=== PATIENT | female | born 1975 | race Caucasian/White ===

== ENCOUNTER → 2017-11-20 13:34 | Outpatient (REF) | payer BC, SELFPAY ==
[2017-11-20 17:42] LABS: Basophils # 0.1 K/mm3 (0-0.2); Basophils % 0.6 % (0.1-2.0); Eosinophils # 0.3 K/mm3 (0.0-0.4); Eosinophils % 2.6 % (0.1-12.0); Hematocrit 45.7 % (37.0-47.0); Hemoglobin 14.8 g/dL (12.2-16.2); Lymphocytes # 2.9 K/mm3 (0.7-4.5); Lymphocytes % 29.3 K/mm3 (10-50); Mean Corpuscular HGB Conc 32.4 g/dL (31.8-35.4); Mean Corpuscular Hemoglobin 30.9 pg (27.0-31.2); Mean Corpuscular Volume 95.3 fl (81-99); Mean Platelet Volume 9.2 fl (7.4-10.4); Monocytes # 0.4 K/mm3 (0.1-1.0); Monocytes % 4.3 % (1.7-9.3); Neutrophils # 6.2 K/mm3 (1.8-7.8); Neutrophils % 63.1 % (37.0-80.0); Platelet Count 281 K/mm3 (142-424); Red Cell Distribution Width 12.9 % (11.5-17.5); White Blood Count 9.8 K/mm3 (4.8-10.8)
[2017-11-20 18:13] LABS: Alanine Aminotransferase 29 U/L (12-78); Albumin Level 3.7 gm/dL (3.4-5.0); Albumin/Globulin Ratio 1.1 (1.1-1.8); Alkaline Phosphatase 100 U/L (46-116); Anion Gap 13.7 mEq/L (5-15); Aspartate Amino Transferase 16 U/L (15-37); Bilirubin,Total 0.3 mg/dL (0.2-1.0); Blood Urea Nitrogen 13 mg/dL (7-18); Calcium 8.8 mg/dL (8.5-10.1); Carbon Dioxide 26 mmol/L (21.0-32.0); Chloride 105 mmol/L (98-107); Estimated Glomerular Filt Rate 79 ml/min (>60); Free T4 (Free Thyroxine) 1.08 ng/dl (0.76-1.46); GFR (African American) 95 ML/MIN (>60); Globulin 3.5 gm/dl (1.3-3.2); Glucose 92 mg/dL (74-106); Potassium 4.7 mmoL/L (3.5-5.1); Sodium 140 mmol/L (136-145); Thyroid Stimulating Hormone 1.59 uIU/ml (0.358-3.740); Total Protein,Serum 7.2 gm/dL (6.4-8.2)
[2017-11-22 08:11] LABS: Iron 115 ug/dL (27-159); UIBC 201 ug/dL (131-425)
[2017-11-22 18:29] LABS: Iron Saturation 36 % (15-55); Vitamin B12 752 pg/mL (232-1245)
[2017-11-23 18:09] LABS: Vitamin D 25 Hydroxy 19.9 ng/mL (30.0-100.0)
== END ==
LOC: LAB 13:34
PROVIDERS: Visit Provider Nurse Practitioner Family
DX: R53.83 Other fatigue (principal)
CPT/HCPCS: 80053; 82607; 82652; 83550; 84439; 84443; 85025

== ENCOUNTER → 2017-12-03 10:57 | Outpatient (CLI) | payer BC, SELFPAY ==
--- NOTE | 2017-12-03 | US_ITS ---
MM Dig mamm BI DX w/CAD, US breast LT limited COMPARISON: None INDICATION: Palpable abnormality in the left nipple area ORDERING PHYSICIAN: Gucci Yeager MD PATIENT AGE: 42 years TECHNIQUE: Standard images performed along with a nipple profile view of the left cc with compression Left breast ultrasound Limited FINDINGS: There is mostly fatty replaced fibroglandular tissue. No malignant appearing mass or malignant microcalcification. A marker was placed along the palpable abnormality. There is a 4 mm subcutaneous nodule along the lateral aspect of the left nipple. The drainage from the area were tissue. Left breast limited ultrasound: Palpable abnormality represents a 4 x 4 mm area of decreased echogenicity with some enhanced through transmission of sound IMPRESSION: Probably benign findings. A raised pimple like area is noted on the left nipple as seen on the mammogram and ultrasound and could represent an area of cutaneous or subcutaneous infection. Please correlate with physical exam. BI-RADS Category: 3 Benign Finding Short Term Follow-up RECOMMENDED FOLLOW-UP: IMM - IMMEDIATE FOLLOW-UP RECOMMENDED Correlation with physical exam needed regarding today's lesion of the left nipple. (A letter has been sent to the patient regarding results of the study.)
== END ==
PROVIDERS: PCP Nurse Practitioner Family; Visit Provider Emergency Medicine
DX: Z12.31 Encounter for screening mammogram for malignant neoplasm of breast (principal)
CPT/HCPCS: 76642; 77066

== ENCOUNTER → 2018-01-19 13:00 | Outpatient (CLI) | payer BC, SELFPAY ==
--- NOTE | 2018-01-19 13:01 | CA_ITS ---
PROCEDURE: 2-D M-mode and color Doppler study INDICATIONS FOR THE TEST: Chest pain COPD Heart Murmur Tobacco Smoking+ Palpitations Fatigue Syncope Edema Hypertension+Diabetes Mellitus Rheumatic Fever SOB+LI+Obesity+Hyperlipidemia Family History HD+ Additional History Asthma PATIENT INFORMATION HEIGHT: 61 WEIGHT: 229 GENDER: Female B/P: 133/71 2-D/M-MODE INTERPRETATION: 2-D MEASUREMENTS OBSERVED VALUES IN CMS Right Ventricular Dimension (RVDd) 2.0 Interventricular Septum (Thickness)(IVsd) 0.8 Left Ventricular Internal Dimensions(LVIDd) 4.5 Left Ventricular Posterior Wall (Thickness)(LVPWd) 0.9 Aortic Root 2.4 Aortic Cusp Separation 2.0 Left Atrial Dimensions (LAD) 3.3 2D 1. Left atrium is normal size, left ventricle is normal size, there is no concentric left ventricular hypertrophy, visually estimated ejection fraction 55% with no obvious regional wall motion abnormality. 2. The right atrium and right ventricle are normal size and contractility. 3. The aortic valve is minimally thickened and fibrosed. 4. The mitral and tricuspid valve leaflets are minimally thickened. 5. The pulmonic valve is poorly visualized. 6. No significant pericardial effusion noted. DOPPLER INTERROGATION: Doppler interrogation of the aortic, mitral and tricuspid valvular presence of mild mitral and tricuspid regurgitation, tricuspid and jet velocity is insufficient for acquisition of the right ventricular systolic pressure, diastolic parameters are within normal range. CONCLUSION: 1. Normal left ventricular size, preserved left ventricular systolic function, visually estimated ejection fraction 60% with no obvious regional wall motion abnormality. Diastolic parameters are within normal range. 2. Mild mitral and tricuspid regurgitation 3. No significant pericardial effusion noted.
[2018-01-19 14:09] LABS: Basophils # 0.1 K/mm3 (0-0.2); Basophils % 0.6 % (0.1-2.0); Eosinophils # 0.4 K/mm3 (0.0-0.4); Eosinophils % 2.9 % (0.1-12.0); Hematocrit 44.1 % (37.0-47.0); Hemoglobin 14.8 g/dL (12.2-16.2); Lymphocytes # 2.6 K/mm3 (0.7-4.5); Lymphocytes % 21.2 K/mm3 (10-50); Mean Corpuscular HGB Conc 33.6 g/dL (31.8-35.4); Mean Corpuscular Hemoglobin 31.4 pg (27.0-31.2); Mean Corpuscular Volume 93.5 fl (81-99); Mean Platelet Volume 8.5 fl (7.4-10.4); Monocytes # 0.5 K/mm3 (0.1-1.0); Monocytes % 3.9 % (1.7-9.3); Neutrophils # 8.6 K/mm3 (1.8-7.8); Neutrophils % 71.4 % (37.0-80.0); Platelet Count 277 K/mm3 (142-424); Red Blood Count 4.72 M/mm3 (4.20-5.40); Red Cell Distribution Width 12.9 % (11.5-17.5); White Blood Count 12.1 K/mm3 (4.8-10.8)
[2018-01-19 14:47] LABS: Anion Gap 13.5 mEq/L (5-15); Blood Urea Nitrogen 14 mg/dL (7-18); Carbon Dioxide 24 mmol/L (21.0-32.0); Chloride 104 mmol/L (98-107); Estimated Glomerular Filt Rate 79 ml/min (>60); GFR (African American) 95 ML/MIN (>60); Glucose 103 mg/dL (74-106); Potassium 4.5 mmoL/L (3.5-5.1); Sodium 137 mmol/L (136-145)
== END ==
PROVIDERS: Surgery; PCP Nurse Practitioner Family; Visit Provider Internal Medicine
DX: I51.9 Heart disease, unspecified (principal); R94.31 Abnormal electrocardiogram [ECG] [EKG]; R06.09 Other forms of dyspnea
CPT/HCPCS: 36415; 80048; 80053; 84153; 85025; 93306

== ENCOUNTER → 2018-01-19 13:51 | Outpatient (POV) | payer BC, SELFPAY | PROVIDERS: PCP Nurse Practitioner Family; Visit Provider Internal Medicine | DX: Z00.00 Encounter for general adult medical examination without abnormal findings (principal) ==

== ENCOUNTER 2018-01-22 07:13 | Day surgery (SDC) | payer BC, SELFPAY ==
[2018-01-21 13:57] VITALS: BMI 92.4
[2018-01-22] VITALS (17 sets, daily range): BP systolic 92–144; BP diastolic 51–84; PULSE 68–97; RESP 12–25; TEMP 36.1–36.8; O2SAT 96–100
--- NOTE | 2018-01-22 07:53 | P.PN_ITS ---
[facility] Anesthesia Checklist - Patient Identification Patient Identification: Arm Band - Structural Data Admitted From: Home Planned Operative Procedure/s: excision left breast lesion Consent for Planned Operative Procedure(s) Verified: Yes Verified Documents: Surgical Consent, History and Physical - NPO Status Verified Time NPO: 00:00 - Additional verifications Anesthesia Reactions: No - Airway Assessment C-Spine Mobility Assessed: Yes (mp2) TMJ Mobility Assessed: Yes Dentition: Good Dentition - Neurological Assessment Level of Consciousness: Awake, Alert - Anesthesia Plan Anesthesia Risk discussed: Yes Anesthesia Plan: Verified ASA Class: II Anesthesia Type: General [facility] Anesthesia HX I have reviewed the patient's past medical history: Yes Medical History: Reports:: Asthma, Cancer (bladder), Gastroesophageal Reflux Disease(GERD), Hypertension, Migraine Denies:: Diabetes Mellitus Type 1, Diabetes Mellitus Type 2, MRSA, Seizures Other Medical History: Reports: Arthritis, Hypothyroidism, Thyroid Disease, Other. Denies: Blood Transfusion Reaction Laterality Cases: Left: Arthroscopy Knee Other Surgeries: Yes: Hysterectomy-Partial, Tubal Ligation, Other (multiple bladder sx's) Amputation: No Fractures: No *Family Hx:: Coronary Artery Disease, Hypertension, Stroke
--- NOTE | 2018-01-22 08:42 | HMH.OPNOTE ---
Date of procedure: 01/22/18 Pre-op Diagnosis:: Left breast lesion Post-op Diagnosis:: Same Procedure performed:: Excision of left breast lesion (5 mm) Surgeon:: Lopez Anne MD HIDE HOUSE SUPERVISOR:: Wilbert Carter Anesthesia: LMA Estimated blood loss (mL): 5 Operative findings:: Small cystic lesion along skin margin of left lateral nipple Operative note:: After informed consent was obtained, the patient was taken to the operating room and placed in the supine position. Anesthesia with laryngeal mask airway was achieved. Her left breast was prepped and draped in a sterile fashion. After infiltration with local anesthetic an elliptical incision was made around the small cystic lesion. Lesion was excised sharply and passed off for pathologic evaluation. Electrocautery was utilized to achieve hemostasis. Skin was then closed with interrupted 6-0 nylon. Dressings were applied and the patient was transferred to recovery in stable condition after removal of her laryngeal mask airway. Condition: stable Disposition: PACU Specimens:: Left breast lesion Complications:: No immediate
--- NOTE | 2018-01-22 08:45 | P.OP_ITS ---
Date of procedure: 01/22/18 Pre-op Diagnosis:: Left breast lesion Post-op Diagnosis:: Same Procedure performed:: Excision of left breast lesion (5 mm) Surgeon:: Lopez Anne MD TRANSIT PLANNING MANAGER:: Wilbert Carter Anesthesia: LMA Estimated blood loss (mL): 5 Operative findings:: Small cystic lesion along skin margin of left lateral nipple Operative note:: After informed consent was obtained, the patient was taken to the operating room and placed in the supine position. Anesthesia with laryngeal mask airway was achieved. Her left breast was prepped and draped in a sterile fashion. After infiltration with local anesthetic an elliptical incision was made around the small cystic lesion. Lesion was excised sharply and passed off for pathologic evaluation. Electrocautery was utilized to achieve hemostasis. Skin was then closed with interrupted 6-0 nylon. Dressings were applied and the patient was transferred to recovery in stable condition after removal of her laryngeal mask airway. Condition: stable Disposition: PACU Specimens:: Left breast lesion Complications:: No immediate
--- NOTE | 2018-01-22 08:50 | P.PN_ITS ---
[facility] Anesthesia Record Part II Discharge Time: 09:15 Destination: [facility] PACU nurse assessment reviewed?: Yes Patient Condition:: Good Anesthesia Complications:: None
--- NOTE | 2018-01-22 08:50 | HMH.ANESI ---
[facility] Anesthesia Record Part I Intake, IV Amount: 800 Estimated blood loss (mL): 5 Urine output (mL): 0 Blood Pressure: 120/73 SaO2: 97 Pulse Rate: 72 Respiratory Rate: 16 Temperature: 97 F Patient is:: Drowsy, Stable Stable to PACU at:: 08:45
--- NOTE | 2018-01-22 08:50 | HMH.ANESII ---
[facility] Anesthesia Record Part II Discharge Time: 09:15 Destination: [facility] PACU nurse assessment reviewed?: Yes Patient Condition:: Good Anesthesia Complications:: None
== END 2018-01-22 10:30 | disposition home or self-care (01) ==
LOC: OR 07:14
PROVIDERS: PCP Nurse Practitioner Family; Visit Provider Surgery
PROC: (CPT 19120; principal; 2018-01-22 08:15)
DX: N64.89 Other specified disorders of breast (principal)
CPT/HCPCS: 19120; 96374; J2405

== ENCOUNTER → 2018-02-04 14:35 | Outpatient (CLI) | payer BC, SELFPAY | PROVIDERS: Visit Provider Nurse Practitioner Family ==

== ENCOUNTER → 2018-02-12 09:22 | Outpatient (REF) | payer BC, SELFPAY ==
[2018-02-12 14:07] LABS: Basophils # 0.1 K/mm3 (0-0.2); Basophils % 0.6 % (0.1-2.0); Eosinophils # 0.3 K/mm3 (0.0-0.4); Eosinophils % 3.3 % (0.1-12.0); Hematocrit 41.5 % (37.0-47.0); Hemoglobin 13.7 g/dL (12.2-16.2); Lymphocytes # 2.4 K/mm3 (0.7-4.5); Lymphocytes % 26.2 K/mm3 (10-50); Mean Corpuscular HGB Conc 32.9 g/dL (31.8-35.4); Mean Corpuscular Hemoglobin 31.5 pg (27.0-31.2); Mean Corpuscular Volume 95.8 fl (81-99); Mean Platelet Volume 9.7 fl (7.4-10.4); Monocytes # 0.4 K/mm3 (0.1-1.0); Monocytes % 4.4 % (1.7-9.3); Neutrophils % 65.5 % (37.0-80.0); Platelet Count 217 K/mm3 (142-424); Red Blood Count 4.33 M/mm3 (4.20-5.40); White Blood Count 9.1 K/mm3 (4.8-10.8)
== END ==
LOC: LAB 09:22
PROVIDERS: Visit Provider Physician Assistant
DX: D72.829 Elevated white blood cell count, unspecified (principal)
CPT/HCPCS: 85025

== ENCOUNTER → 2018-02-25 12:15 | Outpatient (CLI) | payer BC, SELFPAY ==
[2018-02-25 14:02] LABS: Anion Gap 17.9 mEq/L (5-15); Blood Urea Nitrogen 13 mg/dL (7-18); Carbon Dioxide 22 mmol/L (21.0-32.0); Chloride 103 mmol/L (98-107); Creatinine,Serum 0.83 mg/dL (0.55-1.02); Estimated Glomerular Filt Rate 75 ml/min (>60); Free Thyroxine Index 3.4 ug/dL (5.93-13.13); GFR (African American) 91 ML/MIN (>60); Glucose 143 mg/dL (74-106); Potassium 3.9 mmoL/L (3.5-5.1); Sodium 139 mmol/L (136-145); T4 (Thyroxine) 9.6 ug/dl (4.7-13.3); Thyroid Stimulating Hormone 1.58 uIU/ml (0.358-3.740); Triiodothryronine (T3) Uptake 35 % (31-39)
[2018-02-25 15:24] LABS: Free T4 (Free Thyroxine) 1.16 ng/dl (0.76-1.46)
== END ==
PROVIDERS: Physician Assistant; Visit Provider Internal Medicine Cardiovascular Disease
DX: N39.0 Urinary tract infection, site not specified (principal); R53.83 Other fatigue; I10 Essential (primary) hypertension; E03.9 Hypothyroidism, unspecified
CPT/HCPCS: 36415; 80048; 84436; 84439; 84443; 84479; 87086

== ENCOUNTER → 2018-04-01 10:20 | Outpatient (REF) | payer BC, SELFPAY | LOC: LAB 10:20 | PROVIDERS: Visit Provider Nurse Practitioner Family | DX: N39.0 Urinary tract infection, site not specified (principal) | CPT/HCPCS: 87086 ==

== ENCOUNTER → 2018-04-12 14:23 | Outpatient (CLI) | payer BC, SELFPAY ==
--- NOTE | 2018-04-12 14:24 | US_ITS ---
US transvaginal HISTORY: Right lower quadrant pain, pelvic pain ITS.REASON: Possible Right Ovarian Cyst ORDERING PHYSICIAN: Veronica Ibrahim MD PATIENT AGE: 42 years Comparison: 07/13/2017 FINDINGS: There has been a prior hysterectomy and left oophorectomy. The vaginal stump has an unremarkable appearance. The right ovary measures 3.7 x 2.7 cm and contains 2 heterogeneous cysts each measuring approximately 1 cm and may be due to small hemorrhagic cyst. There is a trace amount fluid adjacent to left ovary. IMPRESSION: 1. Prior hysterectomy and left oophorectomy 2. 2 small complex cyst in the right ovary which may be due to small hemorrhagic cysts. These have developed compared to the previous exam. Minimal amount fluid in the cul-de-sac
== END ==
PROVIDERS: PCP Nurse Practitioner Family; Visit Provider Obstetrics & Gynecology
DX: N83.201 Unspecified ovarian cyst, right side (principal)
CPT/HCPCS: 76830

== ENCOUNTER → 2018-04-22 15:02 | Outpatient (CLI) | payer BC, SELFPAY ==
--- NOTE | 2018-04-22 15:03 | XR_ITS ---
XR foot LT min 3V HISTORY: Posttraumatic pain ITS.REASON: Fell 04/22/18 ORDERING PHYSICIAN: ABBE Lujan PATIENT AGE: 42 years COMPARISON: None FINDINGS: No fracture or dislocation. No lytic or blastic change. There is normal mineralization.. The joint spaces are well-preserved. No significant degenerative/arthritic changes. No erosive changes evident. IMPRESSION: Negative, no acute finding
== END ==
PROVIDERS: Visit Provider Physician Assistant
DX: S99.912A Unspecified injury of left ankle, initial encounter (principal); S99.922A Unspecified injury of left foot, initial encounter
CPT/HCPCS: 73630

== ENCOUNTER → 2018-05-11 10:37 | Outpatient (CLI) | payer BC, SELFPAY ==
[2018-05-11 10:54] LABS: Basophils # 0.1 K/mm3 (0-0.2); Basophils % 0.6 % (0.1-2.0); Eosinophils # 0.5 K/mm3 (0.0-0.4); Eosinophils % 4.9 % (0.1-12.0); Hematocrit 45.5 % (37.0-47.0); Hemoglobin 14.7 g/dL (12.2-16.2); Lymphocytes # 2.2 K/mm3 (0.7-4.5); Lymphocytes % 20.4 K/mm3 (10-50); Mean Corpuscular HGB Conc 32.2 g/dL (31.8-35.4); Mean Corpuscular Hemoglobin 29.4 pg (27.0-31.2); Mean Corpuscular Volume 91.4 fl (81-99); Mean Platelet Volume 8.3 fl (7.4-10.4); Monocytes # 0.4 K/mm3 (0.1-1.0); Monocytes % 3.7 % (1.7-9.3); Neutrophils # 7.5 K/mm3 (1.8-7.8); Neutrophils % 70.4 % (37.0-80.0); Platelet Count 239 K/mm3 (142-424); Red Blood Count 4.98 M/mm3 (4.20-5.40); Red Cell Distribution Width 13.2 % (11.5-17.5); White Blood Count 10.6 K/mm3 (4.8-10.8)
[2018-05-11 12:58] LABS: Anion Gap 14.3 mEq/L (5-15); Blood Urea Nitrogen 15 mg/dL (7-18); Calcium 8.7 mg/dL (8.5-10.1); Carbon Dioxide 23 mmol/L (21.0-32.0); Chloride 106 mmol/L (98-107); Estimated Glomerular Filt Rate 68 ml/min (>60); GFR (African American) 83 ML/MIN (>60); Glucose 98 mg/dL (74-106); Potassium 4.3 mmoL/L (3.5-5.1); Sodium 139 mmol/L (136-145)
== END ==
PROVIDERS: Visit Provider Nurse Practitioner Obstetrics & Gynecology
DX: Z01.818 Encounter for other preprocedural examination (principal); R10.31 Right lower quadrant pain
CPT/HCPCS: 36415; 80048; 85025

== ENCOUNTER → 2018-07-27 12:55 | Outpatient (POV) | payer BC, SELFPAY | PROVIDERS: PCP Nurse Practitioner Family; Visit Provider Internal Medicine | DX: Z00.00 Encounter for general adult medical examination without abnormal findings (principal) ==

== ENCOUNTER → 2018-08-02 09:55 | Outpatient (CLI) | payer BC, SELFPAY ==
[2018-08-02 10:14] LABS: Basophils # 0.1 K/mm3 (0-0.2); Basophils % 0.8 % (0.1-2.0); Eosinophils # 0.2 K/mm3 (0.0-0.4); Eosinophils % 2.8 % (0.1-12.0); Hematocrit 39.8 % (37.0-47.0); Lymphocytes % 24.1 K/mm3 (10-50); Mean Corpuscular HGB Conc 32.6 g/dL (31.8-35.4); Mean Corpuscular Hemoglobin 30.6 pg (27.0-31.2); Mean Corpuscular Volume 93.9 fl (81-99); Mean Platelet Volume 8.6 fl (7.4-10.4); Monocytes # 0.3 K/mm3 (0.1-1.0); Monocytes % 3.9 % (1.7-9.3); Neutrophils # 5.6 K/mm3 (1.8-7.8); Neutrophils % 68.4 % (37.0-80.0); Platelet Count 222 K/mm3 (142-424); Red Blood Count 4.24 M/mm3 (4.20-5.40); Red Cell Distribution Width 13.2 % (11.5-17.5); White Blood Count 8.1 K/mm3 (4.8-10.8)
== END ==
PROVIDERS: PCP Emergency Medicine; Visit Provider Otolaryngology
DX: Z01.818 Encounter for other preprocedural examination (principal)
CPT/HCPCS: 36415; 85025

== ENCOUNTER → 2018-08-11 09:34 | Outpatient (CLI) | payer BC, SELFPAY ==
--- NOTE | 2018-08-11 09:38 | XR_ITS ---
XR knee LT 4V Ordering Physician: Milton Cohen MD Patient Age: 43 years: Female HISTORY: ITS.REASON: left knee pain 4 views weightbearing Knee pain medial, anterior. Progressive past 6 months. TECHNIQUE: Technique: Weightbearing AP, lateral and Matt views were performed as well as oblique. COMPARISON :None FINDINGS Prominent degenerative arthritic, most evident at patellofemoral joint, most evident laterally. Hypertrophic lateral extension of the lateral margin of patella seen draping over the lateral aspect of its femoral articulation. Prominent circumferential hypertrophic changes both sides of patellofemoral joint. Joint narrowing & sclerosis is most evident along the posterior aspect of lateral patella. On the frontal projection is difficult to tell there is been old fracture or if merely viewing some of the thin lateral marginal osteophytes extending laterally account for appearance on final projection.. Also hypertrophic changes seen at the medial margin of patella & the medial facet.] Medial femoral articulation. Osseous structures with trauma here. No prior studies The medial and lateral compartments are fairly well maintained on the standing views. There is some calcification project over the particular the lateral compartment more so than medial compartment. On this likely reflects accommodation chondrocalcinosis as well as some of the hypertrophic changes project over this region. Cannot exclude loose bodies with this appearance particularly on the standing Matt view. . tricompartmental marginal osteophytes.. . Hypertrophic changes are also seenAt the tibial spines. & to lesser degree femoral condyles. Again difficult to exclude loose body or fragmentation at anterior tibial spine.. Small joint effusion likely present IMPRESSION: 1. Degenerative, osteoarthritic changes at the knee.. Most pronounced findings at the lateral patellofemoral joint Tricompartmental marginal osteophytes. Scattered calcifications projected throughout knee joint space particularly evident at lateral compartment..- Some these may reflect chondrocalcinosis, but I suspect are also hypertrophic features (4 example at anterior tibial spine)-but cannot exclude underlying joint loose body with overall appearance.
== END ==
PROVIDERS: PCP Emergency Medicine; Visit Provider Orthopaedic Surgery
DX: M25.562 Pain in left knee (principal)
CPT/HCPCS: 73564

== ENCOUNTER → 2018-08-13 09:41 | Outpatient (REF) | payer BC, SELFPAY ==
[2018-08-13 14:29] LABS: Alanine Aminotransferase 20 U/L (12-78); Albumin Level 3.5 gm/dL (3.4-5.0); Alkaline Phosphatase 80 U/L (46-116); Anion Gap 16.3 mEq/L (5-15); Aspartate Amino Transferase 10 U/L (15-37); Bilirubin,Total 0.3 mg/dL (0.2-1.0); Blood Urea Nitrogen 16 mg/dL (7-18); Calcium 9.1 mg/dL (8.5-10.1); Carbon Dioxide 23 mmol/L (21.0-32.0); Chloride 105 mmol/L (98-107); Chol/HDL Ratio 3.2 (1-3.5); Cholesterol 189 mg/dL (140-200); Creatinine,Serum 0.79 mg/dL (0.55-1.02); Estimated Glomerular Filt Rate 79 ml/min (>60); GFR (African American) 96 ML/MIN (>60); Globulin 3.5 gm/dl (1.3-3.2); Glucose 107 mg/dL (74-106); HDL Cholesterol 60 mg/dL (29-89); LDL Cholesterol 112 mg/dL (0-130); Potassium 4.3 mmoL/L (3.5-5.1); Sodium 140 mmol/L (136-145); T4 (Thyroxine) 7.5 ug/dl (4.7-13.3); Triglycerides 84 mg/dL (30-200); VLDL Cholesterol 17 mg/dL (0-40)
[2018-08-13 15:00] LABS: Basophils % 0.1 % (0.1-2.0); Eosinophils % 0.1 % (0.1-12.0); Hematocrit 42.1 % (37.0-47.0); Hemoglobin 13.7 g/dL (12.2-16.2); Lymphocytes # 2.2 K/mm3 (0.7-4.5); Lymphocytes % 11.1 K/mm3 (10-50); Mean Corpuscular HGB Conc 32.6 g/dL (31.8-35.4); Mean Corpuscular Hemoglobin 30.7 pg (27.0-31.2); Mean Corpuscular Volume 94.3 fl (81-99); Monocytes # 0.7 K/mm3 (0.1-1.0); Monocytes % 3.6 % (1.7-9.3); Neutrophils # 17.3 K/mm3 (1.8-7.8); Neutrophils % 85.2 % (37.0-80.0); Platelet Count 288 K/mm3 (142-424); Red Blood Count 4.47 M/mm3 (4.20-5.40); Red Cell Distribution Width 13.6 % (11.5-17.5); White Blood Count 20.3 K/mm3 (4.8-10.8)
[2018-08-13 15:02] LABS: MANUAL DIFFERENTIAL MANUAL DIFFERENTIAL (MANUAL DIFF)
[2018-08-13 16:10] LABS: Lymphocytes % 12 % (10-50); Monocytes % 6 % (2-9); Neutrophils % 82 % (42-76); Total Cells Counted 100
[2018-08-13 16:12] LABS: Platelet Estimate Normal; RBC Morphology Normal
[2018-08-14 10:22] LABS: Vitamin D 25 Hydroxy 18.4 ng/mL (30.0-100.0)
== END ==
LOC: LAB 09:41
PROVIDERS: PCP Nurse Practitioner Family; Visit Provider Nurse Practitioner Family
DX: I10 Essential (primary) hypertension (principal)
CPT/HCPCS: 80053; 80061; 82652; 84436; 84443; 85007; 85025

== ENCOUNTER → 2018-08-23 10:59 | Outpatient (CLI) | payer BC, SELFPAY ==
[2018-08-23 12:10] LABS: Basophils # 0.1 K/mm3 (0-0.2); Basophils % 0.5 % (0.1-2.0); Eosinophils # 0.2 K/mm3 (0.0-0.4); Eosinophils % 1.8 % (0.1-12.0); Hematocrit 39.2 % (37.0-47.0); Hemoglobin 12.8 g/dL (12.2-16.2); Lymphocytes # 2.5 K/mm3 (0.7-4.5); Lymphocytes % 21.3 K/mm3 (10-50); Mean Corpuscular HGB Conc 32.6 g/dL (31.8-35.4); Mean Corpuscular Hemoglobin 30.6 pg (27.0-31.2); Mean Corpuscular Volume 93.9 fl (81-99); Mean Platelet Volume 7.7 fl (7.4-10.4); Monocytes # 0.5 K/mm3 (0.1-1.0); Monocytes % 4.1 % (1.7-9.3); Neutrophils # 8.4 K/mm3 (1.8-7.8); Neutrophils % 72.3 % (37.0-80.0); Platelet Count 213 K/mm3 (142-424); Red Blood Count 4.18 M/mm3 (4.20-5.40); Red Cell Distribution Width 13.6 % (11.5-17.5); White Blood Count 11.6 K/mm3 (4.8-10.8)
== END ==
PROVIDERS: Visit Provider Nurse Practitioner Family
DX: D72.829 Elevated white blood cell count, unspecified (principal)
CPT/HCPCS: 36415; 85025

== ENCOUNTER → 2018-09-06 12:25 | Outpatient (CLI) | payer BC, SELFPAY ==
[2018-09-06 13:38] LABS: Basophils # 0.1 K/mm3 (0-0.2); Basophils % 0.5 % (0.1-2.0); Eosinophils # 0.2 K/mm3 (0.0-0.4); Hematocrit 39.4 % (37.0-47.0); Hemoglobin 12.9 g/dL (12.2-16.2); Lymphocytes # 2.1 K/mm3 (0.7-4.5); Lymphocytes % 24.5 % (10-50); Mean Corpuscular HGB Conc 32.8 g/dL (31.8-35.4); Mean Corpuscular Hemoglobin 30.5 pg (27.0-31.2); Mean Corpuscular Volume 92.9 fl (81-99); Mean Platelet Volume 7.4 fl (7.4-10.4); Monocytes # 0.3 K/mm3 (0.1-1.0); Platelet Count 250 K/mm3 (142-424); Red Blood Count 4.25 M/mm3 (4.20-5.40); Red Cell Distribution Width 13.8 % (11.5-17.5); White Blood Count 8.6 K/mm3 (4.8-10.8)
== END ==
PROVIDERS: Visit Provider Nurse Practitioner Family
DX: D72.829 Elevated white blood cell count, unspecified (principal)
CPT/HCPCS: 36415; 85025

== ENCOUNTER → 2018-09-09 18:13 | Outpatient (CLI) | payer BC, SELFPAY | PROVIDERS: Visit Provider Nurse Practitioner Family | DX: N39.0 Urinary tract infection, site not specified (principal) | CPT/HCPCS: 87086 ==

== ENCOUNTER → 2018-09-20 17:49 | Outpatient (CLI) | payer BC, SELFPAY | PROVIDERS: Visit Provider Physician Assistant | DX: R10.9 Unspecified abdominal pain (principal); L02.91 Cutaneous abscess, unspecified | CPT/HCPCS: 87070; 87077; 87086; 87186; 87205 ==

== ENCOUNTER → 2018-09-22 14:21 | Outpatient (POV) | payer BC, SELFPAY | DX: Z00.00 Encounter for general adult medical examination without abnormal findings (principal) ==

== ENCOUNTER 2018-09-28 15:00 | Outpatient (RCR) | payer BC, SELFPAY ==
--- NOTE | 2018-08-18 15:18 | HMH.PTOPEV ---
PT Outpatient Evaluation Rehab PT Outpatient Evaluation Start: 08/18/18 14:46 Freq: Status: Active Protocol: Document 08/18/18 15:09 PHOBAN (Rec: 08/18/18 15:18 PHORNE [id number]) Electronically Signed By Clovis Whitt, PT 08/18/18 15:09 Outpatient Therapy Subjective History Subjective History Pt is 43 yowf who presents with c/o pain in the left knee and hip x ~ 1-2 yrs, gradually worsening symptoms. She reports having a left knee arthroscopy ~ 1-2 yrs ago to remove loose bodies. She also reports having cortisone injections in the knee and hip last week which helped significantly. She reports hx of Asthma, Migraines, and implanted bladder stimulator. Chief Complaint Pain Symptom Type Ache Symptoms Relieved By Rest/Positioning Symptoms Aggravated By Walking Prior Functional Limitations None Current Functional Limitations Walking Symptom Description Intermittent Level of pain today (0-10) 4 Pain scale - at its worst (0-10) 7 Hip/Knee Eval Gait Observation General Gait Pattern Observation No Deviations/Normal Palpation Tenderness left Knee Palpation Finding Tenderness Knee Palpation Overall Comment lateral knee jt line Hip Palpation Findings Tenderness MMT Hip Flexion Strength Grade 5 Normal Hip Abduction Strength Grade 5 Normal Hip Adduction Strength Grade 5 Normal Hip Extension Strength Grade 5 Normal Knee Extension Strength Grade 5 Normal Knee Flexion Strength Grade 5 Normal ROM Hip ROM Reason Not Measured Within Functional Limits Knee Flexion Active Range of Motion ( 0-125 degrees) Special Tests Hip Scouring (Quadrant) Test Negative Left Negative Right Hip Trendelenburg Test Negative Left Negative Right Knee Anterior Drawer Test Negative Left Negative Right Knee Anterior Debo Test Negative Left Negative Right Knee Posterior Sag ([place] Drawer) Test Negative Left Negative Right Knee Valgus Stress Test Negative Left Negative Right Knee Varus Stress Test Negative Left Negative Right Knee Marcela Test Negative Right Positive Left Outpatient Therapy Beto
--- NOTE | 2018-09-28 15:29 | HMH.RHREAS ---
Rehab Reassessment Rehab OP Re-assessment Start: 09/28/18 15:20 Freq: Status: Active Protocol: Document 09/28/18 15:20 DANIELLE (Rec: 09/28/18 15:23 PHOBAN [id number]) Electronically Signed By Clovis Whitt, PT 09/28/18 15:20 Rehab Re-assessment Subjective Subjective Pt reports pain in the left knee remains 5/10 today. Left hip feels much better. Objective Objective Notes AROM Left knee: 0-125 MMT left knee grossly 5/5 Assessment Progress Assessment Slower Than Expected Assessment Notes Left hip much improved, left knee with no improvement. Patient goals met STG: all Goals Not Met LTG: none Revised Goals none Plan Plan Pt to return to MD for further evaluation of left knee pain. Time and Billing Re-Eval Time 15 Re-Eval Billing Units 1 PHYSICIAN CERTIFICATION: I certify the specified therapy services for Kassandra Barrera are required, authorized, and reviewed every 30 days.
== END 2018-09-28 15:05 | disposition home or self-care (01) ==
LOC: PT 15:00
PROVIDERS: Visit Provider Orthopaedic Surgery
DX: M25.552 Pain in left hip (principal); M25.562 Pain in left knee
CPT/HCPCS: 97010; 97014; 97033; 97110; 97163; 97164; G0283

== ENCOUNTER → 2018-11-04 18:03 | Outpatient (CLI) | payer BC, SELFPAY ==
[2018-11-04 18:29] LABS: Basophils % 0.6 % (0.1-2.0); Eosinophils # 0.2 K/mm3 (0.0-0.4); Eosinophils % 2.6 % (0.1-12.0); Hematocrit 43.4 % (37.0-47.0); Hemoglobin 13.8 g/dL (12.2-16.2); Lymphocytes # 2.1 K/mm3 (0.7-4.5); Lymphocytes % 28.1 % (10-50); Mean Corpuscular HGB Conc 31.7 g/dL (31.8-35.4); Mean Corpuscular Hemoglobin 30.3 pg (27.0-31.2); Mean Corpuscular Volume 95.5 fl (81-99); Mean Platelet Volume 8.9 fl (7.4-10.4); Monocytes # 0.4 K/mm3 (0.1-1.0); Monocytes % 5.3 % (1.7-9.3); Neutrophils # 4.7 K/mm3 (1.8-7.8); Neutrophils % 63.3 % (37.0-80.0); Platelet Count 245 K/mm3 (142-424); Red Blood Count 4.54 M/mm3 (4.20-5.40); Red Cell Distribution Width 13.2 % (11.5-17.5); White Blood Count 7.4 K/mm3 (4.8-10.8)
[2018-11-04 19:25] LABS: Alanine Aminotransferase 19 U/L (12-78); Albumin Level 3.6 gm/dL (3.4-5.0); Alkaline Phosphatase 89 U/L (46-116); Anion Gap 15.5 mEq/L (5-15); Aspartate Amino Transferase 9 U/L (15-37); Bilirubin,Total 0.3 mg/dL (0.2-1.0); Blood Urea Nitrogen 14 mg/dL (7-18); Calcium 8.7 mg/dL (8.5-10.1); Carbon Dioxide 25 mmol/L (21.0-32.0); Chloride 103 mmol/L (98-107); Chol/HDL Ratio 3.7 (1-3.5); Cholesterol 170 mg/dL (140-200); Creatinine,Serum 0.85 mg/dL (0.55-1.02); Estimated Glomerular Filt Rate 73 ml/min (>60); GFR (African American) 88 ML/MIN (>60); Globulin 3.6 gm/dl (1.3-3.2); Glucose 79 mg/dL (74-106); HDL Cholesterol 46 mg/dL (29-89); LDL Cholesterol 108 mg/dL (0-130); Potassium 4.5 mmoL/L (3.5-5.1); Sodium 139 mmol/L (136-145); T4 (Thyroxine) 7.2 ug/dl (4.7-13.3); Thyroid Stimulating Hormone 4.31 uIU/ml (0.358-3.740); Total Protein,Serum 7.2 gm/dL (6.4-8.2); Triglycerides 79 mg/dL (30-200); VLDL Cholesterol 16 mg/dL (0-40)
[2018-11-06 22:50] LABS: Vitamin D 25 Hydroxy 17.9 ng/mL (30.0-100.0)
== END ==
PROVIDERS: Visit Provider Nurse Practitioner Family
DX: R53.83 Other fatigue (principal); E66.9 Obesity, unspecified; E78.5 Hyperlipidemia, unspecified; E53.8 Deficiency of other specified B group vitamins; E03.9 Hypothyroidism, unspecified; D72.829 Elevated white blood cell count, unspecified
CPT/HCPCS: 80053; 80061; 82652; 84436; 84443; 85025

== ENCOUNTER → 2018-12-02 17:55 | Outpatient (CLI) | payer BC, SELFPAY | LOC: LAB 17:55 → LAB.DROPOF 12-03 09:44 | PROVIDERS: Visit Provider Nurse Practitioner Family | DX: R10.9 Unspecified abdominal pain (principal) | CPT/HCPCS: 87086 ==

== ENCOUNTER → 2018-12-14 10:59 | Outpatient (CLI) | payer BC, SELFPAY ==
[2018-12-14 11:37] LABS: Basophils # 0.1 K/mm3 (0-0.2); Basophils % 0.6 % (0.1-2.0); Eosinophils # 0.2 K/mm3 (0.0-0.4); Eosinophils % 1.9 % (0.1-12.0); Hematocrit 42.2 % (37.0-47.0); Hemoglobin 13.6 g/dL (12.2-16.2); Lymphocytes # 1.8 K/mm3 (0.7-4.5); Lymphocytes % 22.1 % (10-50); Mean Corpuscular HGB Conc 32.2 g/dL (31.8-35.4); Mean Corpuscular Hemoglobin 29.9 pg (27.0-31.2); Mean Corpuscular Volume 92.9 fl (81-99); Mean Platelet Volume 8.4 fl (7.4-10.4); Monocytes # 0.4 K/mm3 (0.1-1.0); Monocytes % 4.7 % (1.7-9.3); Neutrophils # 5.7 K/mm3 (1.8-7.8); Neutrophils % 70.7 % (37.0-80.0); Platelet Count 208 K/mm3 (142-424); Red Blood Count 4.54 M/mm3 (4.20-5.40)
[2018-12-14 12:26] LABS: Alanine Aminotransferase 22 U/L (12-78); Albumin Level 3.5 gm/dL (3.4-5.0); Albumin/Globulin Ratio 1.1 (1.1-1.8); Alkaline Phosphatase 78 U/L (46-116); Anion Gap 16.4 mEq/L (5-15); Aspartate Amino Transferase 8 U/L (15-37); Bilirubin,Total 0.5 mg/dL (0.2-1.0); Blood Urea Nitrogen 16 mg/dL (7-18); Calcium 8.6 mg/dL (8.5-10.1); Carbon Dioxide 23 mmol/L (21.0-32.0); Chloride 105 mmol/L (98-107); Chol/HDL Ratio 3.6 (1-3.5); Cholesterol 165 mg/dL (140-200); Estimated Glomerular Filt Rate 78 ml/min (>60); Free Thyroxine Index 2.9 ug/dL (5.93-13.13); GFR (African American) 95 ML/MIN (>60); Globulin 3.3 gm/dl (1.3-3.2); Glucose 98 mg/dL (74-106); HDL Cholesterol 46 mg/dL (29-89); LDL Cholesterol 93 mg/dL (0-130); Potassium 4.4 mmoL/L (3.5-5.1); Sodium 140 mmol/L (136-145); T4 (Thyroxine) 7.8 ug/dl (4.7-13.3); Thyroid Stimulating Hormone 2.15 uIU/ml (0.358-3.740); Total Protein,Serum 6.8 gm/dL (6.4-8.2); Triglycerides 130 mg/dL (30-200); Triiodothryronine (T3) Uptake 37 % (31-39); VLDL Cholesterol 26 mg/dL (0-40)
[2018-12-15 15:25] LABS: FSH 21.4 mIU/mL (.); LH 34.3 mIU/mL (.); Triiodothyronine (T3) Free 2.7 pg/mL (2.0-4.4)
== END ==
PROVIDERS: Visit Provider Nurse Practitioner Obstetrics & Gynecology
DX: Z01.419 Encounter for gynecological examination (general) (routine) without abnormal findings (principal)
CPT/HCPCS: 36415; 80053; 80061; 82670; 83001; 83002; 84436; 84443; 84479; 84481; 85025

== ENCOUNTER → 2019-01-07 14:11 | Outpatient (CLI) | payer BC, SELFPAY ==
--- NOTE | 2019-01-07 14:13 | MM_ITS ---
MM Dig screening mamm BI w/CAD CAD Screening COMPARISON: Digital mammograms with CAD 12/03/2017 and 01/16/2016 INDICATION: There is no personal or family history of breast cancer. There has been a previous biopsy left breast for benign disease. TECHNIQUE: Standard CC and MLO images were obtained. R2 CAD reviewed. FINDINGS: The breasts are of low density composed primarily of fat with minimal scattered fibroglandular densities in each breast. There is no suspicious lesion and there are no suspicious microcalcifications. There are small nodes in both axilla. IMPRESSION: Fatty type breast parenchyma with no suspicious lesion seen BI-RADS Category: 1 Negative RECOMMENDED FOLLOW-UP: 1YR - 1 YEAR FOLLOW-UP (A letter has been sent to the patient regarding results of the study.)
== END ==
PROVIDERS: PCP Nurse Practitioner Family; Visit Provider Nurse Practitioner Obstetrics & Gynecology
DX: Z12.31 Encounter for screening mammogram for malignant neoplasm of breast (principal)
CPT/HCPCS: 77067

== ENCOUNTER → 2019-02-08 10:07 | Outpatient (CLI) | payer BC, SELFPAY ==
[2019-02-08 11:24] LABS: Free Thyroxine Index 2.7 ug/dL (5.93-13.13); T4 (Thyroxine) 7.8 ug/dl (4.7-13.3); Thyroid Stimulating Hormone 4.19 uIU/ml (0.358-3.740); Triiodothryronine (T3) Uptake 35 % (31-39)
[2019-02-09 12:46] LABS: Estradiol 147.1 pg/mL (.)
== END ==
PROVIDERS: Visit Provider Nurse Practitioner Obstetrics & Gynecology
DX: R53.83 Other fatigue (principal)
CPT/HCPCS: 36415; 82670; 84436; 84443; 84479; 84481

== ENCOUNTER → 2019-02-08 10:17 | Outpatient (POV) | payer BC, SELFPAY | PROVIDERS: Visit Provider Internal Medicine | DX: Z00.00 Encounter for general adult medical examination without abnormal findings (principal) ==

== ENCOUNTER → 2019-02-09 19:23 | Outpatient (CLI) | payer BC, SELFPAY ==
[2019-02-09 19:49] LABS: Alanine Aminotransferase 18 U/L (12-78); Albumin Level 3.7 gm/dL (3.4-5.0); Alkaline Phosphatase 89 U/L (46-116); Anion Gap 16.9 mEq/L (5-15); Aspartate Amino Transferase 6 U/L (15-37); Bilirubin,Total 0.3 mg/dL (0.2-1.0); Blood Urea Nitrogen 17 mg/dL (7-18); Calcium 9.2 mg/dL (8.5-10.1); Carbon Dioxide 20 mmol/L (21.0-32.0); Chloride 104 mmol/L (98-107); Chol/HDL Ratio 4.5 (1-3.5); Cholesterol 204 mg/dL (140-200); Creatinine,Serum 0.89 mg/dL (0.55-1.02); Estimated Glomerular Filt Rate 69 ml/min (>60); GFR (African American) 84 ML/MIN (>60); Globulin 3.7 gm/dl (1.3-3.2); Glucose 121 mg/dL (74-106); HDL Cholesterol 45 mg/dL (29-89); LDL Cholesterol 122 mg/dL (0-130); Potassium 3.9 mmoL/L (3.5-5.1); Sodium 137 mmol/L (136-145); Total Protein,Serum 7.4 gm/dL (6.4-8.2); Triglycerides 186 mg/dL (30-200); VLDL Cholesterol 37 mg/dL (0-40)
[2019-02-09 19:58] LABS: Basophils % 0.3 % (0.1-2.0); Eosinophils % 0.1 % (0.1-12.0); Hematocrit 41.6 % (37.0-47.0); Hemoglobin 13.9 g/dL (12.2-16.2); Lymphocytes # 1.9 K/mm3 (0.7-4.5); Lymphocytes % 14.7 % (10-50); Mean Corpuscular HGB Conc 33.4 g/dL (31.8-35.4); Mean Corpuscular Hemoglobin 30.2 pg (27.0-31.2); Mean Corpuscular Volume 90.1 fl (81-99); Mean Platelet Volume 9.1 fl (7.4-10.4); Monocytes # 0.5 K/mm3 (0.1-1.0); Monocytes % 3.9 % (1.7-9.3); Neutrophils # 10.4 K/mm3 (1.8-7.8); Neutrophils % 80.9 % (37.0-80.0); Platelet Count 320 K/mm3 (142-424); Red Blood Count 4.61 M/mm3 (4.20-5.40); Red Cell Distribution Width 13.3 % (11.5-17.5); White Blood Count 12.9 K/mm3 (4.8-10.8)
[2019-02-11 23:11] LABS: Vitamin D 25 Hydroxy 18.1 ng/mL (30.0-100.0)
== END ==
PROVIDERS: Visit Provider Nurse Practitioner Family
DX: E55.9 Vitamin D deficiency, unspecified (principal); I10 Essential (primary) hypertension
CPT/HCPCS: 80053; 80061; 82652; 85025

== ENCOUNTER → 2019-04-13 12:35 | Outpatient (CLI) | payer BC, SELFPAY ==
--- NOTE | 2019-04-13 12:38 | CA_ITS ---
PROCEDURE: 2-D M-mode and color Doppler study INDICATIONS FOR THE TEST: Chest pain COPD Heart Murmur Tobacco Smokingex Palpitations Fatigue+ Syncope Edema+ Hypertension+Diabetes Mellitus Rheumatic Fever SOB LI+Obesity+Hyperlipidemia Family History HD Additional History PULM. HTN TDS R/T BODY HABITUS PATIENT INFORMATION HEIGHT: 61 WEIGHT:243 GENDER: Female B/P:134/82 2-D/M-MODE INTERPRETATION: 2-D MEASUREMENTS OBSERVED VALUES IN CMS Right Ventricular Dimension (RVDd) 1.9 Interventricular Septum (Thickness)(IVsd) 0.9 Left Ventricular Internal Dimensions(LVIDd) 4.9 Left Ventricular Posterior Wall (Thickness)(LVPWd) 0.8 Aortic Root 2.4 Aortic Cusp Separation Left Atrial Dimensions (LAD) 3.4 2D 1. Left atrium is mildly enlarged, left ventricle is normal size, mild concentric left ventricular hypertrophy, visually estimated ejection fraction 55% with no regional wall motion abnormality. 2. The right atrium and right ventricle are normal size and contractility. 3. The aortic valve is minimally thickened and fibrosed. 4. The mitral and tricuspid valve leaflets are minimally thickened. 5. The pulmonic valve is poorly visualized. 6. No significant pericardial effusion noted. DOPPLER INTERROGATION: Doppler interrogation of the aortic, mitral and tricuspid valvular presence of mild mitral and tricuspid regurgitation, tricuspid regurgitation jet velocity is inadequate for calculation of the right ventricular systolic pressure, grade 1 diastolic dysfunction seen without tissue Doppler evidence of raised left atrial pressure. CONCLUSION: 1. Mildly enlarged left atrium, normal left ventricular size, mild concentric left ventricular hypertrophy, visually estimated ejection fraction 55% with no regional wall motion abnormality, grade 1 diastolic dysfunction seen without tissue Doppler evidence of raised left atrial pressure. 2. Mild mitral and tricuspid regurgitation 3. No significant pericardial effusion noted.
== END ==
PROVIDERS: PCP Emergency Medicine; Visit Provider Urology
DX: I27.20 Pulmonary hypertension, unspecified (principal)
CPT/HCPCS: 93306

== ENCOUNTER → 2019-04-19 12:49 | Outpatient (CLI) | payer BC, SELFPAY ==
--- NOTE | 2019-04-20 15:40 | PC.NURSE ---
PATIENT RETURNED SLEEP DEVICE - NOT ENOUGH DATA TO UPLOAD - NO CHARGE FOR STUDY.
== END ==
PROVIDERS: PCP Emergency Medicine; Visit Provider Urology
DX: R06.83 Snoring (principal); R53.83 Other fatigue

== ENCOUNTER → 2019-04-26 15:32 | Outpatient (CLI) | payer BC, SELFPAY ==
[2019-04-26 15:49] LABS: Basophils # 0.1 K/mm3 (0-0.2); Basophils % 0.6 % (0.1-2.0); Eosinophils # 0.4 K/mm3 (0.0-0.4); Eosinophils % 3.8 % (0.1-12.0); Hematocrit 44.7 % (37.0-47.0); Hemoglobin 14.4 g/dL (12.2-16.2); Lymphocytes # 2.5 K/mm3 (0.7-4.5); Lymphocytes % 24.7 % (10-50); Mean Corpuscular HGB Conc 32.3 g/dL (31.8-35.4); Mean Corpuscular Hemoglobin 29.5 pg (27.0-31.2); Mean Corpuscular Volume 91.6 fl (81-99); Mean Platelet Volume 8.5 fl (7.4-10.4); Monocytes # 0.4 K/mm3 (0.1-1.0); Monocytes % 4.2 % (1.7-9.3); Neutrophils # 6.9 K/mm3 (1.8-7.8); Neutrophils % 66.8 % (37.0-80.0); Platelet Count 298 K/mm3 (142-424); Red Blood Count 4.88 M/mm3 (4.20-5.40); Red Cell Distribution Width 13.5 % (11.5-17.5); White Blood Count 10.3 K/mm3 (4.8-10.8)
[2019-04-26 17:19] LABS: Blood Urea Nitrogen 18 mg/dL (7-18); Carbon Dioxide 23 mmol/L (21.0-32.0); Chloride 105 mmol/L (98-107); Creatinine,Serum 0.92 mg/dL (0.55-1.02); Estimated Glomerular Filt Rate 66 ml/min (>60); Free Thyroxine Index 2.6 ug/dL (5.93-13.13); GFR (African American) 80 ML/MIN (>60); Glucose 120 mg/dL (74-106); Sodium 140 mmol/L (136-145); Thyroid Stimulating Hormone 4.36 uIU/ml (0.358-3.740); Triiodothryronine (T3) Uptake 29 % (31-39)
[2019-04-28 06:24] LABS: Estradiol 88.7 pg/mL (.); FSH 5.1 mIU/mL (.); Triiodothyronine (T3) Free 2.9 pg/mL (2.0-4.4)
[2019-04-29 07:12] LABS: LH 5.4 mIU/mL (.)
== END ==
PROVIDERS: Visit Provider Nurse Practitioner Obstetrics & Gynecology
DX: E03.9 Hypothyroidism, unspecified (principal); N95.1 Menopausal and female climacteric states; R53.83 Other fatigue
CPT/HCPCS: 36415; 80048; 82670; 83001; 83002; 84436; 84443; 84479; 84481; 85025

== ENCOUNTER → 2019-05-16 13:27 | Outpatient (CLI) | payer BC, SELFPAY ==
[2019-05-16 14:27] LABS: Anion Gap 14.4 mEq/L (5-15); Blood Urea Nitrogen 15 mg/dL (7-18); Calcium 9.2 mg/dL (8.5-10.1); Carbon Dioxide 26 mmol/L (21.0-32.0); Chloride 102 mmol/L (98-107); Creatinine,Serum 1.01 mg/dL (0.55-1.02); Estimated Glomerular Filt Rate 60 ml/min (>60); GFR (African American) 72 ML/MIN (>60); Glucose 120 mg/dL (74-106); Potassium 4.4 mmoL/L (3.5-5.1); Sodium 138 mmol/L (136-145)
== END ==
PROVIDERS: PCP Emergency Medicine; Visit Provider Physician Assistant
DX: G47.33 Obstructive sleep apnea (adult) (pediatric) (principal); R53.83 Other fatigue; I10 Essential (primary) hypertension; I51.9 Heart disease, unspecified; R06.00 Dyspnea, unspecified; E66.01 Morbid (severe) obesity due to excess calories; R06.83 Snoring; R40.0 Somnolence; F17.200 Nicotine dependence, unspecified, uncomplicated
CPT/HCPCS: 80048; 95806

== ENCOUNTER → 2019-06-16 12:52 | Outpatient (CLI) | payer BC, SELFPAY ==
--- NOTE | 2019-06-16 12:53 | US_ITS ---
PROCEDURE: US TRANSVAGINAL CLINICAL INDICATION: US T/V- RLQP, Right ovarian cyst COMPARISON: TRANVAG US transvaginal from 04/12/2018 TECHNIQUE: FINDINGS: The uterus and left ovary are surgically absent. The vaginal cuff has an unremarkable appearance. The right ovary is 5 x 3.6 cm and contains a 3.7 x 2.9 cm complex cyst with some internal debris and a thin septation. IMPRESSION: 3.7 x 2.9 cm complex right ovarian cyst. Recommend follow-up to confirm stability Dictated by: Amado Lugo MD 06/16/2019 16:59 Signed by: <Electronically signed by Amado Lugo MD in [place]> 06/16/2019 16:59
== END ==
PROVIDERS: PCP Emergency Medicine; Visit Provider Nurse Practitioner Obstetrics & Gynecology
DX: N83.201 Unspecified ovarian cyst, right side (principal); R10.31 Right lower quadrant pain
CPT/HCPCS: 76830

== ENCOUNTER → 2019-07-21 13:16 | Outpatient (CLI) | payer BC, SELFPAY ==
[2019-07-21 14:31] LABS: Anion Gap 15.6 mEq/L (5-15); Blood Urea Nitrogen 13 mg/dL (7-18); Calcium 9.2 mg/dL (8.5-10.1); Carbon Dioxide 22 mmol/L (21.0-32.0); Chloride 104 mmol/L (98-107); Creatinine,Serum 0.72 mg/dL (0.55-1.02); Estimated Glomerular Filt Rate 88 ml/min (>60); GFR (African American) 106 ML/MIN (>60); Glucose 94 mg/dL (74-106); Potassium 4.6 mmoL/L (3.5-5.1); Sodium 137 mmol/L (136-145)
[2019-07-21 14:53] LABS: Free T4 (Free Thyroxine) 0.97 ng/dl (0.76-1.46); Thyroid Stimulating Hormone 3.29 uIU/ml (0.358-3.740)
== END ==
PROVIDERS: Otolaryngology; Visit Provider Nurse Practitioner Family
DX: E66.01 Morbid (severe) obesity due to excess calories (principal); I10 Essential (primary) hypertension; I51.89 Other ill-defined heart diseases; R06.09 Other forms of dyspnea; R94.31 Abnormal electrocardiogram [ECG] [EKG]; E03.8 Other specified hypothyroidism; F17.200 Nicotine dependence, unspecified, uncomplicated
CPT/HCPCS: 36415; 80048; 84439; 84443

== ENCOUNTER → 2019-07-28 17:57 | Outpatient (CLI) | payer BC, SELFPAY ==
[2019-07-28 18:50] LABS: Basophils # 0.1 K/mm3 (0-0.2); Basophils % 0.7 % (0.1-2.0); Eosinophils # 0.2 K/mm3 (0.0-0.4); Eosinophils % 2.7 % (0.1-12.0); Hematocrit 41.7 % (37.0-47.0); Hemoglobin 13.1 g/dL (12.2-16.2); Lymphocytes % 24.4 % (10-50); Mean Corpuscular HGB Conc 31.5 g/dL (31.8-35.4); Mean Corpuscular Hemoglobin 29.2 pg (27.0-31.2); Mean Corpuscular Volume 92.7 fl (81-99); Mean Platelet Volume 9.5 fl (7.4-10.4); Monocytes # 0.4 K/mm3 (0.1-1.0); Monocytes % 4.4 % (1.7-9.3); Neutrophils # 5.6 K/mm3 (1.8-7.8); Neutrophils % 67.7 % (37.0-80.0); Platelet Count 252 K/mm3 (142-424); Red Cell Distribution Width 13.6 % (11.5-17.5); White Blood Count 8.3 K/mm3 (4.8-10.8)
[2019-07-28 18:58] LABS: Alanine Aminotransferase 15 U/L (12-78); Albumin Level 3.5 gm/dL (3.4-5.0); Albumin/Globulin Ratio 1.1 (1.1-1.8); Alkaline Phosphatase 79 U/L (46-116); Anion Gap 14.6 mEq/L (5-15); Aspartate Amino Transferase 8 U/L (15-37); Bilirubin,Total 0.3 mg/dL (0.2-1.0); Blood Urea Nitrogen 18 mg/dL (7-18); Calcium 8.8 mg/dL (8.5-10.1); Carbon Dioxide 25 mmol/L (21.0-32.0); Chloride 105 mmol/L (98-107); Chol/HDL Ratio 3.9 (1-3.5); Cholesterol 154 mg/dL (140-200); Creatinine,Serum 0.93 mg/dL (0.55-1.02); Estimated Glomerular Filt Rate 65 ml/min (>60); GFR (African American) 79 ML/MIN (>60); Globulin 3.3 gm/dl (1.3-3.2); Glucose 90 mg/dL (74-106); HDL Cholesterol 40 mg/dL (29-89); LDL Cholesterol 93 mg/dL (0-130); Potassium 4.6 mmoL/L (3.5-5.1); Sodium 140 mmol/L (136-145); Total Protein,Serum 6.8 gm/dL (6.4-8.2); Triglycerides 103 mg/dL (30-200); VLDL Cholesterol 21 mg/dL (0-40)
[2019-07-30 12:27] LABS: Vitamin D 25 Hydroxy 22.2 ng/mL (30.0-100.0)
== END ==
PROVIDERS: Visit Provider Nurse Practitioner Family
DX: R53.83 Other fatigue (principal); E55.9 Vitamin D deficiency, unspecified; I10 Essential (primary) hypertension
CPT/HCPCS: 80053; 80061; 82652; 85025

== ENCOUNTER → 2019-09-05 14:24 | Outpatient (CLI) | payer BC, SELFPAY ==
--- NOTE | 2019-09-05 14:30 | XR_ITS ---
PROCEDURE: XR LUMBAR SPINE 6V W BENDING CLINICAL INDICATION: low back pain Low back pain COMPARISON: LS5 LUMBAR SPINE 5 VIEWS from 05/28/2017 FINDINGS: Normal alignment. No fracture or dislocation. There is mild degenerative disc disease at L3-L4 L4-5 and L5-S1. Flexion and extension views are obtained showing no abnormal subluxation. The flexion is limited. There is a neurostimulator device in the right gluteal area with the electrode extending through a sacral foramen on the right into the presacral region. IMPRESSION: Mild degenerative changes lumbar spine overall not significantly changed from 05/28/2017 Dictated by: Amado Lugo MD 09/05/2019 16:33 Electronically signed by Amado Lugo MD in [place] 09/05/2019 16:33
== END ==
PROVIDERS: PCP Nurse Practitioner Family; Visit Provider Nurse Practitioner Family
DX: M54.5 Low back pain (principal)
CPT/HCPCS: 72114

== ENCOUNTER → 2019-09-06 13:58 | Outpatient (CLI) | payer BC, SELFPAY ==
--- NOTE | 2019-09-06 | CA_ITS ---
APPROVED REPORT Exam: Exercise Treadmill Technologist: Juanita Lebron Ht: 5 ft 1 in Wt: 246 lbs BSA: 2.06 m2 HR: 119 bpm BP: 108/84 mmHg Indications: Chest pain, Shortness of Breath Medical History Medications: Lisinopril,,,,, Omeprazole,,,,, Levothyroxine,,,,, Vitamin D3,,,,, LoraTidine,,,,, Vitamin D2,,,,, Stress Test Details Test: Dereck HR Resting HR: 134 bpm Max Heart Rate (APMHR): 176 bpm Max HR Achieved: 178 bpm Target HR (85% APMHR): 149 bpm % of APMHR: 101 Recovery HR: 128 bpm BP Resting BP: 108.0/84.0 mmHg Max BP: 118.0/86.0 mmHg Recovery BP: 104.0/64.0 mmHg ECG Clinical Exercise duration: 02:23 min Highest Stage Achieved: Exercise capacity: 4.6 METs Stress ECG Conclusion Resting ECG: Sinus tachycardia Dereck Protocol completed. Patient exercised for 2.23. Test stopped due to shortness of breath. Patient remained tachycardic during recovery. Patient instructed to take beta stacey. Patient verbalized understanding. Symptoms: Shortness of breath at peak exercise, resolved in recovery. No chest pain. Arrhythmias/Ectopy: No ectopy noted. ST-T Changes: Less than 1.5mm ST depression. Conclusion: GXT only. Appropriate blood pressure response. Poor exercise capacity. Less than 1.[address] depression. Patient remained in sinus tachycardia in recovery. If clinically indicated repeat a study with either echocardiogram or myocardial perfusion imaging. Electronically signed by : Denny Gomez, 09/07/2019 06:09:18
== END ==
PROVIDERS: PCP Emergency Medicine; Visit Provider Urology
DX: R06.00 Dyspnea, unspecified (principal); R94.31 Abnormal electrocardiogram [ECG] [EKG]; I10 Essential (primary) hypertension
CPT/HCPCS: 93017; G0399

== ENCOUNTER 2019-09-14 13:47 | Outpatient (RCR) | payer BC, SELFPAY ==
--- NOTE | 2019-09-14 14:37 | HMH.PTOPEV ---
PT Outpatient Evaluation Rehab PT Outpatient Evaluation Start: 09/14/19 14:06 Freq: Status: Active Protocol: Document 09/14/19 14:07 DIANNESDRAS (Rec: 09/14/19 14:37 ESTEFANI [id number]) Electronically Signed By Mason Noriega PT 09/14/19 14:07 Outpatient Therapy Subjective History Subjective History This is the initial Physical Therapy evaluation for Kassanrda Barrera. Pt is a 44 y/o female referred to PT for c/o LBP. Pt reports she is on disability for Bladder issues and Low back pain. Pt reports she fell ~ 3 weeks ago and landed on her back causing it to hyper-extend. Pt reports pain has been consistent sincethen. Chief Complaint Pain,Stiff Symptom Type Ache,Throb Symptoms Relieved By Rest/Positioning,Heat,OTC Meds Symptoms Aggravated By Standing,Physical Activity, Walking Prior Functional Limitations None Current Functional Limitations Housework,Standing,Sitting, Recreation Activity,Walking Symptom Description Intermittent Level of pain today (0-10) 4 Pain scale - at its best (0-10) 4 Pain scale - at its worst (0-10) 8 Lumbopelvic Eval Gait Observation General Gait Pattern Observation No Deviations/Normal Palapation tenderness bilateral lumbar spinal tenderness Yes paraspinal tenderness Yes Range of Motion Lumbar Spine Active Flexion Range of 50 Motion (degrees) Lumbar Spine Active Extension Range of 25 Motion (degrees) Left Lumbar Spine Lateral Flexion Active 25 Range of Motion (degrees) Right Lumbar Spine Lateral Flexion 25 Active Range of Motion (degrees) Lumbar Spine ROM Limitations Pain Special Tests Lumbar Spine Screen Positive Forward Bending Test- Standing Positive Left,Positive Right Forward Bending Test- Sitting Positive Left,Positive Right Sciatic Nerve Tension Test Positive Left,Positive Right Unilateral Straight Leg Raise (Lasegue) Positive Left,Positive Right Test Bilateral Straight Leg Raise Test Positive Outpatient Therapy Assessment Impairments Problems/Impairmments Palpation Tenderness,Impaired Range of Motion,Impaired Walking,Impaired Standing, Impaired Sitting,Impaired Household Care,Impaired Bending,Impaired Recreational
== END 2019-09-14 13:55 | disposition home or self-care (01) ==
LOC: PT 13:47
PROVIDERS: Visit Provider Nurse Practitioner Family
DX: M54.9 Dorsalgia, unspecified (principal)
CPT/HCPCS: 97010; 97110; 97163

== ENCOUNTER → 2019-09-28 14:18 | Outpatient (CLI) | payer BC, SELFPAY ==
--- NOTE | 2019-09-28 14:19 | CT_ITS ---
PROCEDURE: CT LUMBAR SPINE WO CON CLINICAL HISTORY: back pain LOW BACK PAIN COMPARISON: LSWO CT LUMBAR SPINE W/O CONTRAST from 01/11/2015 TECHNIQUE: Axial images obtained with sagittal and coronal reformats. All CT scans at the facility use one or more dose reduction, viz: automated exposure control, ma/kV adjustment per patient size (including targeted exams where dose is matched to indication, i.e. head), or iterative reconstruction technique. FINDINGS: There is normal alignment. No acute fracture or dislocation is evident. T12-L1, L1-L2 and L2-L3 have an unremarkable appearance. At L3-L4, there is a small left paracentral disc osteophyte complex causing mild left lateral recess and foraminal narrowing. L4-5: Mild concentric bulging disc with facet and ligamentum hypertrophy. This disc is slightly eccentric toward the left. There is mild left-sided foraminal narrowing. L5-S1: Degenerative disc disease with bulging disc and endplate osteophyte formation. There is associated hypertrophic change of the facets with some ossification of the left ligamentum flavum versus a facet osteophyte with resultant severe left-sided foraminal narrowing. There is mild right foraminal narrowing. A neurostimulator device is present extending through the right S3-S4 foramen into the presacral region. IMPRESSION: 1. At L3-L4, there is a small left paracentral disc osteophyte complex causing mild left lateral recess and foraminal narrowing. 2. L4-5: Mild concentric bulging disc with facet and ligamentum hypertrophy. This disc is slightly eccentric toward the left. There is mild left-sided foraminal narrowing. 3. L5-S1: Degenerative disc disease with bulging disc and endplate osteophyte formation. There is associated hypertrophic change of the facets with some ossification of the left ligamentum flavum versus a facet osteophyte with resultant severe left-sided foraminal narrowing. There is mild right foraminal narrowing. 4. A neurostimulator device is present extending through the right S3-S4 foramen into the presacral region. Dictated by: Amado Lugo MD 09/30/2019 05:39 Electronically signed by Amdao Lugo MD in [place] 09/30/2019 11:48
== END ==
PROVIDERS: PCP Nurse Practitioner Family; Visit Provider Nurse Practitioner Family
DX: M54.9 Dorsalgia, unspecified (principal); M54.5 Low back pain
CPT/HCPCS: 72131

== ENCOUNTER → 2019-10-13 12:05 | Outpatient (CLI) | payer BC, SELFPAY ==
--- NOTE | 2019-10-13 | CA_ITS ---
APPROVED REPORT Exam: Pharmacologic Technologist: armond crump, Ht: 5 ft 1 in Wt: 240 lbs BSA: 2.04 m2 Indications: SOB, PALPATATIONS Medical History Medications: Lisinopril,,,,, Omeprazole,,,,, Levothyroxine,,,,, Trazadone,,,,, Hyoscyamine,,,,, Flonase,,,,, Lasix,,,,, Estradiol,,,,, ClARITAN,,,,, Vitamin D,,,,, BisOPROLOL,,,,, Plecantide,,,,, Allergies: PCN, Latex, Sulfa, Cephalaxin, Nitro, Phenetermine Cardiac Risk Factors: HTN, FHX of CAD Stress Test Details Test: LEXISCAN HR Resting HR: 69 bpm Max Heart Rate (APMHR): 176 bpm Max HR Achieved: 126 bpm Target HR (85% APMHR): 149 bpm % of APMHR: 71 Recovery HR: 102 bpm BP Resting BP: 115/57 mmHg Max BP: 132/59 mmHg Recovery BP: 124.0/68.0 mmHg ECG Resting ECG: NSR, Low voltage QRS Clinical Exercise duration: 04:06 min Highest Stage Achieved: Stress ECG Conclusion Switched to Lexiscan due to patient unable to walk on treadmill. Symptoms: SOA, mild nsusea, malasie, mild chest tightness. No arrhythmias or ectopy. No significant ST-T changes. Unremarkable Lexiscan stress. Images reported seperately. Test Summary REST 02:06 . . 69 . 115/ 57 . . Stage 1 01:00 . . 126 . . . . Stage 2 01:00 . . 120 . 122/ 67 . . Stage 3 01:00 . . 107 . 132/ 59 . . Stage 4 01:00 . . 108 . 126/ 62 . . Stage 4 01:06 . . 110 . 126/ 62 . Stop exercise at 04:06 RECOVERY 01:00 . . 104 . . . . RECOVERY 02:00 . . 98 . 124/ 68 . . RECOVERY 03:00 . . 91 . 121/ 59 . . RECOVERY 04:00 . . 94 . 128/ 59 . . RECOVERY 04:16 . . 96 . 128/ 59 . . Electronically signed by : Denny Gomez, 10/13/2019 14:49:35
--- NOTE | 2019-10-13 12:05 | NM_ITS ---
APPROVED REPORT Exam: Nuclear Stress Test Indication: SOB, Palpitations, HTN, Family history Patient Location[place] [facility] [place] Tech:Christiana Prado, ARRT, RT (R)(N) Ht: 5 ft 1 in Wt: 240 lbs Bra Size: 38C HR: 74 bpm BP: 115/57 mmHg BSA: 2.04 m2 BMI: 45.3 History: SOB, Palpitations, HTN, Family history Procedure: Patient received a 0.4 mg of intravenous Lexiscan, resting heart rate 74 bpm, resting blood pressure 115/57 mmHg, with Lexiscan maximum heart rate achived was 126 bpm which is Less than 85 % of the maximum predicted heart rate and blood pressure was 132/59 mmHg. Electrocardiogram Resting EKG shows sinus rhythm, with Lexiscan there is less than 1.[address] segment depression noted from the baseline EKG. The EKG portion of the Lexiscan Myoview is nondiagnostic. Cardiac Stress and Resting SPECT Images: Cardiac Stress and Resting SPECT images were obtained using technetium 99m Myoview 31.6 mCi stress and 10.17 mCi at rest. Gated SPECT with analysis of segmental wall motion and calculation of the ejection fraction also done. Cardiac stress and resting SPECT images show mild defect in the anterior wall which is likely secondary to soft tissue attenuation, no reversible ischemia seen. Computer derived ejection fraction is 64% with no regional wall motion abnormality, right ventricle is normal size and contractility. This is study is technically limited due to patient's body habitus. Conclusion: 1. The EKG portion of the Lexiscan Myoview is nondiagnostic. 2. No scintigraphic evidence of reversible ischemia seen a fixed defect in the anterior wall is likely secondary to soft tissue attenuation, computer derived ejection fraction 64% with no regional wall motion abnormality, right ventricle is normal size and contractility. 3. Likely normal Lexiscan Myoview study, this study is technically limited due to patient's body habitus. Electronically signed by : Denny Gomez, 10/13/2019 15:14:30
--- NOTE | 2019-10-13 12:55 | HMH.ITSHM ---
Current Home Medications as stated by this patient Kassandra Barrera or senior sales representative. []trazodone NASAL SPRAY PLECANATIDE MONTELUKAST LORATADINE LISINOPRIL LEVOTHYROXINE HYOSCYAMINE FUROSEMIDE ESTRADIOL VITAMIN D2 VITAMIN D3 BISOPROLOL OMEPRAZOLE FLUTICASONE
== END ==
PROVIDERS: PCP Nurse Practitioner Family; Visit Provider Urology
DX: R00.0 Tachycardia, unspecified (principal); R06.00 Dyspnea, unspecified; I10 Essential (primary) hypertension; R07.89 Other chest pain
CPT/HCPCS: 78452; 93017; A9502; J2785

== ENCOUNTER → 2019-10-14 16:56 | Outpatient (CLI) | payer BC, SELFPAY | PROVIDERS: Visit Provider Nurse Practitioner Family | DX: R39.89 Other symptoms and signs involving the genitourinary system (principal) | CPT/HCPCS: 87086 ==

== ENCOUNTER → 2019-10-27 13:54 | Outpatient (CLI) | payer BC, SELFPAY | PROVIDERS: PCP Emergency Medicine; Visit Provider Urology | DX: R29.6 Repeated falls (principal); R42 Dizziness and giddiness | CPT/HCPCS: 93270 ==

== ENCOUNTER → 2019-11-18 17:09 | Outpatient (CLI) | payer BC, SELFPAY ==
[2019-11-18 18:15] LABS: T4 (Thyroxine) 8.4 ug/dl (4.7-13.3); Thyroid Stimulating Hormone 3.24 uIU/ml (0.358-3.740)
== END ==
PROVIDERS: Visit Provider Nurse Practitioner Family
DX: E07.9 Disorder of thyroid, unspecified (principal)
CPT/HCPCS: 84436; 84443

== ENCOUNTER → 2019-11-24 20:32 | Outpatient (CLI) | payer BC, SELFPAY | PROVIDERS: PCP Nurse Practitioner Family; Visit Provider Nurse Practitioner Family | DX: G47.33 Obstructive sleep apnea (adult) (pediatric) (principal); I10 Essential (primary) hypertension; R40.0 Somnolence; R06.83 Snoring | CPT/HCPCS: 95810 ==

== ENCOUNTER → 2019-12-15 13:17 | Outpatient (CLI) | payer BC, SELFPAY ==
--- NOTE | 2019-12-15 13:26 | CT_ITS ---
PROCEDURE: CT SINUS WO CON CLINICAL HISTORY: RECURRENT SINUSITIS COMPARISON: No exams were available for comparison TECHNIQUE: Axial images obtained with sagittal and coronal reformats. All CT scans at the facility use one or more dose reduction, viz: automated exposure control, ma/kV adjustment per patient size (including targeted exams where dose is matched to indication, i.e. head), or iterative reconstruction technique. FINDINGS: There is normal aeration of the paranasal sinuses and mastoid air cells. There is mild rightward bowing of the nasal septum. IMPRESSION: No sinusitis. Dictated by: Kt Dangelo 12/15/2019 13:40 Electronically signed by Kt Dangelo in [place] 12/15/2019 13:40
== END ==
PROVIDERS: PCP Nurse Practitioner Family; Visit Provider Nurse Practitioner Family
DX: J32.9 Chronic sinusitis, unspecified (principal)
CPT/HCPCS: 70486

== ENCOUNTER → 2019-12-27 14:09 | Outpatient (CLI) | payer BC, SELFPAY ==
--- NOTE | 2019-12-27 14:15 | XR_ITS ---
PROCEDURE: XR KNEE RT 4V CLINICAL INDICATION: right knee pain COMPARISON: KNEE3L KNEE-3 VIEWS-LT from 06/27/2016 [id number] KNEE-4 OR 5 VIEWS-RT from 07/09/2016 [id number] XR knee LT 4V from 08/11/2018 FINDINGS: There are mild tricompartmental osteoarthritic changes No fracture or dislocation. No lytic or blastic change. Other findings:None. IMPRESSION: Osteoarthritis Dictated by: Amado Lugo MD 12/27/2019 17:33 Electronically signed by Amado Lugo MD in [place] 12/27/2019 17:33
--- NOTE | 2019-12-27 14:15 | XR_ITS ---
PROCEDURE: XR KNEE LT 4V CLINICAL INDICATION: left knee pain COMPARISON: KNEE3L KNEE-3 VIEWS-LT from 06/27/2016 [id number] KNEE-4 OR 5 VIEWS-RT from 07/09/2016 [id number] XR knee LT 4V from 08/11/2018 FINDINGS: No fracture or dislocation. No lytic or blastic change. There is normal mineralization. Moderate osteoarthritic changes present at the patellofemoral joint and lateral compartment. Bony hypertrophic changes are present along the superior patella and along the posterior distal femur. Other findings:There are multiple loose bodies which are calcified along the posterior aspect of the distal femur and the suprapatellar region consistent with synovial osteochondromas. IMPRESSION: Osteoarthritis with synovial osteochondromatosis. The synovial osteochondromas appears somewhat smaller in the suprapatellar region compared to the previous exam Dictated by: Amado Lugo MD 12/27/2019 17:35 Electronically signed by Amado Lugo MD in [place] 12/27/2019 17:35
== END ==
PROVIDERS: PCP Nurse Practitioner Family; Visit Provider Orthopaedic Surgery
DX: M25.562 Pain in left knee (principal); M25.561 Pain in right knee
CPT/HCPCS: 73564

== ENCOUNTER → 2020-01-23 12:22 | Outpatient (CLI) | payer BC, SELFPAY ==
--- NOTE | 2020-01-23 12:38 | US_ITS ---
PROCEDURE: US THYROID CLINICAL INDICATION: thyroid neoplasm COMPARISON: THY US THYROID from 04/13/2017 FINDINGS: Right lobe: 0.9 x 3.5 x 1.3 centimeters Left lobe: 0.9 x 3.0 x 1.1 centimeter Isthmus: 2.9 millimeters Additional findings: Nodule A in the inferior right thyroid lobe is hypoechoic measuring 4.4 x 5.6 x 3.1 millimeters. This did measure approximately 6.8 x 4.1 x 4.1 millimeters. Nodule B in the inferior right thyroid lobe measures 9.1 x 9.7 x 5.9 millimeters. This was to measure 4.6 x 1.6x 3.8 millimeter. This nodule appears to increased significantly in size over the interval. Consider correlation with radionuclide imaging. Nodule C in the mid right thyroid lobe measures 6.6 x 8.1 x 3.1 millimeters. This was reported to measure 13 x 10 x 6 millimeters Nodule at junction of right thyroid lobe and isthmus measures 5.1 x 4.9 x 3.1 millimeter. IMPRESSION: Solid thyroid nodules as described. Solid nodule B in the right thyroid lobe appears to have increased in size over the interval. Multinodular goiter is favored. Dictated by: Kt Dangelo 01/23/2020 14:44 Electronically signed by Kt Dangelo in [place] 01/23/2020 14:44
[2020-01-23 12:45] LABS: Basophils # 0.1 K/mm3 (0-0.2); Basophils % 0.7 % (0.1-2.0); Eosinophils # 0.2 K/mm3 (0.0-0.4); Hematocrit 41.4 % (37.0-47.0); Hemoglobin 13.4 g/dL (12.2-16.2); Lymphocytes % 25.7 % (10-50); Mean Corpuscular HGB Conc 32.4 g/dL (31.8-35.4); Mean Corpuscular Hemoglobin 29.8 pg (27.0-31.2); Mean Corpuscular Volume 91.9 fl (81-99); Mean Platelet Volume 7.8 fl (7.4-10.4); Monocytes # 0.3 K/mm3 (0.1-1.0); Monocytes % 3.8 % (1.7-9.3); Neutrophils # 5.2 K/mm3 (1.8-7.8); Neutrophils % 66.8 % (37.0-80.0); Platelet Count 266 K/mm3 (142-424); Red Blood Count 4.51 M/mm3 (4.20-5.40); Red Cell Distribution Width 13.8 % (11.5-17.5); White Blood Count 7.8 K/mm3 (4.8-10.8)
[2020-01-23 12:59] LABS: Alanine Aminotransferase 16 U/L (12-78); Albumin Level 3.9 g/dl (3.5-5.0); Albumin/Globulin Ratio 1.3 (1.1-1.8); Alkaline Phosphatase 84 U/L (38-126); Anion Gap 10.1 mEq/L (5-15); Aspartate Amino Transferase 26 U/L (14-36); Bilirubin,Total 0.4 mg/dl (0.2-1.3); Blood Urea Nitrogen 16 mg/dl (7-17); Carbon Dioxide 24 mmol/L (22.0-30.0); Chloride 105 mmol/L (98-107); Chol/HDL Ratio 3.5 (1-3.5); Cholesterol 174 mg/dl (140-200); Estimated Glomerular Filt Rate 78 ml/min (>60); GFR (African American) 94 ML/MIN (>60); Glucose 104 mg/dl (74-100); HDL Cholesterol 50 mg/dl (40-60); Potassium 4.1 mmoL/L (3.5-5.1); Sodium 135 mmol/L (136-145); Total Protein,Serum 6.9 g/dl (6.3-8.2); Triglycerides 101 mg/dl (30-150); VLDL Cholesterol 20 mg/dL (0-40)
[2020-01-23 13:10] LABS: Direct LDL Cholesterol 112.75 mg/dL (100-129)
[2020-01-23 15:08] LABS: Free T4 (Free Thyroxine) 1.08 ng/dl (0.78-2.19)
[2020-01-23 15:23] LABS: Thyroid Stimulating Hormone 3.24 uIU/mL (0.465-4.68)
== END ==
PROVIDERS: Nurse Practitioner Obstetrics & Gynecology; PCP Nurse Practitioner Family; Visit Provider Otolaryngology
DX: Z01.419 Encounter for gynecological examination (general) (routine) without abnormal findings (principal); D49.7 Neoplasm of unspecified behavior of endocrine glands and other parts of nervous system
CPT/HCPCS: 36415; 76536; 80053; 80061; 84439; 84443; 85025

== ENCOUNTER → 2020-01-26 14:04 | Outpatient (CLI) | payer BC, SELFPAY ==
--- NOTE | 2020-01-26 14:04 | MM_ITS ---
PROCEDURE: MM DIG SCREENING MAMM BI W/CAD Digital Breast Tomosynthesis Included CLINICAL INDICATION: screening xmg COMPARISON: DMSB DIG MAMM-SCREEN JACKELIN from 01/16/2016 [facility] MM Dig mamm BI DX w/CAD from 12/03/2017 [facility] MM Dig screening mamm BI w/CAD from 01/07/2019 TECHNIQUE: Standard CC and MLO images and 3D Tomosynthesis was obtained. R2 CAD reviewed. FINDINGS: There are scattered areas of glandular density appearing to occupy less than 25 percent of breast volume. There is no discrete mass. There are multiple radiodensities in the prepectoral regions of both breasts and overlying the pectoral muscles left greater than right. These are denoted by computer aided detection. The findings are not seen on the CC views likely due to their depth. It is possible the findings are related to deodorant artifact. They were not present previously. Indeterminate morphology microcalcifications unfortunately are not excluded. Additional repeat bilateral MLO views and axillary tail views of both breasts are recommended with care to ensure the patient has not applied deodorant prior to imaging. If the findings persist additional magnification views would be indicated. IMPRESSION: BI-RAD Category: 0 Need Additional Imaging Evaluation (A letter has been sent to the patient regarding results of the study.) Dictated by: Kt Dangelo 01/26/2020 18:36 Electronically signed by Kt Dangelo in [place] 01/26/2020 18:36
== END ==
PROVIDERS: PCP Nurse Practitioner Family; Visit Provider Nurse Practitioner Obstetrics & Gynecology
DX: Z12.31 Encounter for screening mammogram for malignant neoplasm of breast (principal)
CPT/HCPCS: 77063; 77067

== ENCOUNTER → 2020-02-03 14:18 | Outpatient (CLI) | payer BC, SELFPAY ==
--- NOTE | 2020-02-03 14:19 | MM_ITS ---
PROCEDURE: MM DIG MAMM BI DX W/CAD CLINICAL INDICATION: Abnormal Mammogram Abnormal screening mammogram. Breast calcifications versus deodorant artifact on previous COMPARISON: DXBI MM Dig mamm BI DX w/CAD from 12/03/2017 [facility] MM Dig screening mamm BI w/CAD from 01/07/2019 MM DIG SCREENING MAMM BI W/CAD from 01/26/2020 TECHNIQUE: Repeat MLO views and XCC views are obtained of both breasts R2 CAD reviewed. FINDINGS: There is mostly fatty replaced tissue. No malignant appearing mass or malignant-appearing microcalcification. Previously noted small foci of increased density in the axillary regions of both breast represented deodorant artifact IMPRESSION: BI-RAD Category: 1 Negative FOLLOW-UP: 1YR 1 Year Follow-up (A letter has been sent to the patient regarding results of the study.) Dictated by: Amado Lugo MD 02/15/2020 09:50 Electronically signed by Amado Lugo MD in [place] 02/15/2020 09:50
== END ==
PROVIDERS: PCP Nurse Practitioner Family; Visit Provider Nurse Practitioner Obstetrics & Gynecology
DX: R92.8 Other abnormal and inconclusive findings on diagnostic imaging of breast (principal)
CPT/HCPCS: 77062; 77066; G0279

== ENCOUNTER → 2020-02-23 16:21 | Outpatient (CLI) | payer BC, SELFPAY | PROVIDERS: Visit Provider Nurse Practitioner Family | DX: N39.0 Urinary tract infection, site not specified (principal) | CPT/HCPCS: 87086 ==

== ENCOUNTER → 2020-04-12 13:59 | Outpatient (CLI) | payer BC, SELFPAY ==
--- NOTE | 2020-04-12 13:59 | CT_ITS ---
PROCEDURE: CT HEAD/BRAIN WO CON CLINICAL INDICATION: headaches Severe headaches the COMPARISON: HDWO CT HEAD W/O CONTRAST from 12/07/2015 TECHNIQUE: Axial images obtained. All CT scans at the facility use one or more dose reduction, viz: automated exposure control, ma/kV adjustment per patient size (including targeted exams where dose is matched to indication, i.e. head), or iterative reconstruction technique. FINDINGS: No midline shift, mass effect, intracranial hemorrhage, hydrocephalus, or extra-axial fluid collection is evident. The calvarium has an unremarkable appearance. No mastoid effusion. No sinus air-fluid level. IMPRESSION: No acute intracranial finding Dictated by: Amado Lugo MD 04/13/2020 12:34 Electronically signed by Amado Lugo MD in [place] 04/13/2020 12:34
== END ==
PROVIDERS: PCP Nurse Practitioner Family; Visit Provider Nurse Practitioner Family
DX: R51 Headache (principal)
CPT/HCPCS: 70450

== ENCOUNTER → 2020-04-18 11:31 | Outpatient (CLI) | payer BC, SELFPAY ==
--- NOTE | 2020-04-18 11:52 | ECG_ITS ---
APPROVED REPORT Exam: Resting ECG HR:117 bpm ECG Measurements Heart Rate 117 AXES CO 122 P 66 QRSd 90 QRS 9 QT 312 T 49 QTc 435 <Conclusion> Sinus tachycardia RSR' or QR pattern in V1 suggests right ventricular conduction delay Nonspecific T wave abnormality Abnormal ECG Electronically signed by : Saud Duran, 04/18/2020 17:49:19
[2020-04-18 11:57] LABS: Basophils # 0.1 K/mm3 (0-0.2); Basophils % 0.8 % (0.1-2.0); Eosinophils # 0.2 K/mm3 (0.0-0.4); Eosinophils % 2.2 % (0.1-12.0); Hematocrit 43.8 % (37.0-47.0); Hemoglobin 14.9 g/dL (12.2-16.2); Lymphocytes # 2.4 K/mm3 (0.7-4.5); Lymphocytes % 23.4 % (10-50); Mean Corpuscular Volume 91.1 fl (81-99); Mean Platelet Volume 8.4 fl (7.4-10.4); Monocytes # 0.5 K/mm3 (0.1-1.0); Monocytes % 4.7 % (1.7-9.3); Neutrophils # 7.2 K/mm3 (1.8-7.8); Neutrophils % 68.8 % (37.0-80.0); Platelet Count 289 K/mm3 (142-424); Red Blood Count 4.81 M/mm3 (4.20-5.40); Red Cell Distribution Width 13.8 % (11.5-17.5); White Blood Count 10.4 K/mm3 (4.8-10.8)
[2020-04-18 16:02] LABS: Coronavirus 19 IgG Antibody Negative (Negative); Coronavirus 19 IgM Antibody Negative (Negative)
== END ==
PROVIDERS: Visit Provider Otolaryngology
DX: Z01.818 Encounter for other preprocedural examination (principal); R94.120 Abnormal auditory function study; H61.22 Impacted cerumen, left ear
CPT/HCPCS: 36415; 85025; 86328; 93005

== ENCOUNTER 2020-04-19 06:10 | Day surgery (SDC) | payer BC, SELFPAY ==
[2020-04-19] VITALS (15 sets, daily range): BP systolic 90–134; BP diastolic 42–81; PULSE 85–111; RESP 12–20; TEMP 36.3–36.7; O2SAT 94–99; BMI 46.8
--- NOTE | 2020-04-19 07:32 | HMH.ANESCL ---
[facility] Anesthesia Checklist - Structural Data Admitted From: Home Planned Operative Procedure/s: l ear tube Consent for Planned Operative Procedure(s) Verified: Yes - Additional verifications Anesthesia Reactions: No Hx Blood Transfusions: No Blood Transfusion Reaction: No - Airway Assessment C-Spine Mobility Assessed: Yes TMJ Mobility Assessed: Yes Dentition: Good Dentition - Neurological Assessment Level of Consciousness: Awake, Alert, Appropriate - Anesthesia Plan Anesthesia Risk discussed: Yes Anesthesia Plan: Verified ASA Class: II Anesthesia Type: General [facility] History I have reviewed the patient's past medical history: Yes Medical History: Reports:: Asthma, Cancer (bladder), Gastroesophageal Reflux Disease(GERD), Hypertension, Migraine Denies:: Diabetes Mellitus Type 1, Diabetes Mellitus Type 2, Internal Pacemaker, MRSA, Seizures *Have you ever received a pneumonia vaccine?: No *Have you received a flu vaccine this season?: Yes Other Medical History: Reports: Arthritis, Hypothyroidism, Thyroid Disease, Other. Denies: Blood Transfusion Reaction Anesthesia experience/problems:: none Laterality Cases: Left: Arthroscopy Knee Other Surgeries: Yes: Appendectomy, Cancer Surgery, Cholecystectomy, Hysterectomy-Partial, Sinus Surgery, Tubal Ligation, Other. No: Pacemaker Amputation: No Fractures: No - *Social History Educational Level: Completed High School Smoking Status: Former smoker Tobacco Type: cigarettes # Packs/Day (cigarettes): 1 #Yrs smoked (if former smoker): 14 Alcohol Intake: never Alcohol Intake Frequency:: other Substance Use Type: denies use *Occupational Status:: disabled Housing: house Household Members: none *Travel in the last 8 weeks: None Family Hx:: Coronary Artery Disease, Hypertension, Stroke
--- NOTE | 2020-04-19 08:13 | P.PN_ITS ---
[facility] Anesthesia Record Part I Intake, IV Amount: 400 Estimated blood loss (mL): 0 Urine output (mL): 0 Blood Pressure: 90/43 SaO2: 97 Pulse Rate: 95 Respiratory Rate: 12 Temperature: 97.8 F Patient is:: Awake, Stable Stable to PACU at:: 08:10
--- NOTE | 2020-04-19 08:23 | PC.NURSE ---
0812-LMA removed per DOMINIQUE Mak upon arrival to pacu, pt's O2 sats stable on room air, no acute distress noted, will continue to monitor
--- NOTE | 2020-04-19 09:30 | PC.NURSE ---
0850-drinking ice water without difficulty 09-detailed report called to Irving,RN 0904-Pt reports pain continues to ease a little after being medicated and with warm blanket placed to ear-rates 5/10, pt appears to be resting easier, vss, pt denies nausea after drinking ice water, pt transported to post op via stretcher with liz rails up and left in care of IrvnigRN with bed locked in lowest position, pt stable
--- NOTE | 2020-04-19 11:13 | P.OP_ITS ---
Date of procedure: 04/19/20 Pre-op Diagnosis:: 1. Chronic Left mastoiditis 2. Left serous otitis media Post-op Diagnosis:: same Procedure performed:: 1. Microdebridement of left mastoid 2. Left myringotomy and tube Surgeon:: Jose Duckworth MD RN RADIATION ONCOLOGY:: Syed Cristobal Anesthesia: GETA Estimated blood loss (mL): 0 Operative findings:: same Operative note:: With the patient under general anesthesia using the operating microscope for all the procedure the left ear was prepped and draped. The left ear was full of debris and there was a epitympanic mastoid pocket that was completely occluded with debris. Using microdebridement techniques all of the debris was cleared. As well a previously placed ventilation tube which had been distorted by the debris was removed. The ear was thoroughly irrigated and then an incision was made in the posterior inferior quadrant, serous fluid was aspirated and a Triune T-tube was placed. Ciprodex drops were applied and the patient was sent to recovery in good general condition. Condition: stable Disposition: PACU Complications:: none
--- NOTE | 2020-04-20 07:47 | P.PN_ITS ---
[facility] Anesthesia Record Part II Discharge Time: 09:05 Destination: Surgical Day Care (OP Surgery) PACU nurse assessment reviewed?: Yes Patient Condition:: Good Anesthesia Complications:: None Swallowing reflex intact?: Yes Cyanosis?: No Blood Pressure: 102/68 Pulse Rate: 92 Temperature: 98.0 F Mental Status: Alert & Oriented Pain level:: 5 Nausea and/or vomitting:: None Intake, IV Amount: 0
[2020-04-20 07:49] VITALS: BP 102/68; PULSE 92; TEMP 36.7
== END 2020-04-19 09:50 | disposition home or self-care (01) ==
LOC: OR 06:11
PROVIDERS: PCP Emergency Medicine; Visit Provider Otolaryngology
PROC: (CPT 69436; principal; 2020-04-19 07:30)
DX: H70.12 Chronic mastoiditis, left ear (principal); H65.92 Unspecified nonsuppurative otitis media, left ear; I10 Essential (primary) hypertension; K21.9 Gastro-esophageal reflux disease without esophagitis; G43.909 Migraine, unspecified, not intractable, without status migrainosus; Z90.710 Acquired absence of both cervix and uterus; Z87.39 Personal history of other diseases of the musculoskeletal system and connective tissue; Z87.448 Personal history of other diseases of urinary system; Z79.890 Hormone replacement therapy; Z79.899 Other long term (current) drug therapy; J45.909 Unspecified asthma, uncomplicated; Z85.9 Personal history of malignant neoplasm, unspecified
CPT/HCPCS: 69436; 96374; 96375

== ENCOUNTER → 2020-05-09 11:42 | Outpatient (CLI) | payer BC, SELFPAY ==
[2020-05-09 12:02] LABS: Anion Gap 12.5 mEq/L (5-15); Blood Urea Nitrogen 20 mg/dl (7-17); Calcium 9.3 mg/dl (8.4-10.2); Carbon Dioxide 23 mmol/L (22.0-30.0); Chloride 108 mmol/L (98-107); Estimated Glomerular Filt Rate 68 ml/min (>60); GFR (African American) 82 ML/MIN (>60); Glucose 108 mg/dl (74-100); Potassium 4.5 mmoL/L (3.5-5.1); Sodium 139 mmol/L (136-145)
--- NOTE | 2020-05-09 13:02 | CT_ITS ---
Procedure: CT ANGIO HEAD CLINICAL HISTORY: Headache (INCLUDE VENOUS PHASE) Headaches headaches on the left with nausea COMPARISON: CT HEAD/BRAIN WO CON from 04/12/2020 TECHNIQUE: IV Contrast: 100ml Optiray 350 Axial images obtained with sagittal and coronal reformats. All CT scans at the facility use one or more dose reduction, viz: automated exposure control, ma/kV adjustment per patient size (including targeted exams where dose is matched to indication, i.e. head), or iterative reconstruction technique. FINDINGS: The no aneurysm, arteriovenous malformation, or major intracranial occlusive process evident. There is only minimal calcific plaque within the cavernous portion of the right ICA without significant stenosis. No evidence sagittal sinus/dural venous thrombosis No enhancing lesions apparent. IMPRESSION: Negative CTA of the brain. Dictated by: Amado Lugo MD 05/10/2020 09:56 Electronically signed by Amado Lugo MD in [place] 05/10/2020 09:56
== END ==
PROVIDERS: PCP Emergency Medicine; Visit Provider Specialist
DX: R51 Headache (principal); H70.10 Chronic mastoiditis, unspecified ear; G47.33 Obstructive sleep apnea (adult) (pediatric); Z68.42 Body mass index [BMI] 45.0-49.9, adult
CPT/HCPCS: 36415; 70496; 80048; Q9967

== ENCOUNTER → 2020-05-17 16:49 | Outpatient (CLI) | payer BC, SELFPAY | PROVIDERS: Visit Provider Physician Assistant | DX: R30.0 Dysuria (principal) | CPT/HCPCS: 87086 ==

== ENCOUNTER → 2020-07-24 10:18 | Outpatient (CLI) | payer BC, SELFPAY ==
[2020-07-24 10:20] LABS: Microscopic, Urine URINE MICROSCOPIC (MICROSCOPIC)
--- NOTE | 2020-07-24 10:30 | CT_ITS ---
PROCEDURE: CT ABDOMEN PELVIS WO CON CLINICAL INDICATION: abdominal pain, gross hematuria, rectal bleeding Right-sided abdominal pain, right lower quadrant and periumbilical pain with hematuria COMPARISON: CT ABDPELW/O CT ABD PELVIS W/O CONTRAST from 01/08/[address] abdomen pelvis wo con from 03/23/2018 TECHNIQUE: Axial images obtained with sagittal and coronal reformats. All CT scans at the facility use one or more dose reduction, viz: automated exposure control, ma/kV adjustment per patient size (including targeted exams where dose is matched to indication, i.e. head), or iterative reconstruction technique. FINDINGS: LOWER THORAX: No acute finding ABDOMEN & PELVIS: Fatty liver. There has been a prior cholecystectomy. Within the quadrate area of the liver there is a hypodensity which measures 2.7 cm which is nonspecific and could be due to focal fatty infiltration or developing liver lesion. MRI with in and out of phase imaging may provide further evaluation. There has been a prior cholecystectomy. The spleen, adrenal glands, pancreas, and kidneys have an unremarkable appearance. No renal or ureteral calculi. No hydronephrosis. No intestinal obstruction or free air. Prior appendectomy. No evidence of diverticulitis. Prior hysterectomy there is a neurostimulator device entering in the right sacral foramen with the tip in the presacral area on the right. No acute bony findings. IMPRESSION: No acute abdominal or pelvic findings. Fatty liver with a 2.7 cm hypodensity in the quadrate area of the liver. While this could be due to focal fatty infiltration, developing liver lesion is also consideration. MRI of the liver with with hemangioma protocol may provide further evaluation. Dictated by: Amado Lugo MD 07/24/2020 14:15 Amado Lugo MD in [place] 07/24/2020 14:15
[2020-07-24 11:11] LABS: Basophils # 0.1 K/mm3 (0-0.2); Eosinophils # 0.3 K/mm3 (0.0-0.4); Hematocrit 38.9 % (37.0-47.0); Hemoglobin 12.4 g/dL (12.2-16.2); Lymphocytes # 1.6 K/mm3 (0.7-4.5); Lymphocytes % 24.6 % (10-50); Mean Corpuscular HGB Conc 31.8 g/dL (31.8-35.4); Mean Corpuscular Hemoglobin 29.7 pg (27.0-31.2); Mean Corpuscular Volume 93.3 fl (81-99); Mean Platelet Volume 8.1 fl (7.4-10.4); Monocytes # 0.3 K/mm3 (0.1-1.0); Monocytes % 5.2 % (1.7-9.3); Neutrophils # 4.3 K/mm3 (1.8-7.8); Neutrophils % 65.1 % (37.0-80.0); Platelet Count 217 K/mm3 (142-424); Red Blood Count 4.17 M/mm3 (4.20-5.40); Red Cell Distribution Width 14.3 % (11.5-17.5); White Blood Count 6.6 K/mm3 (4.8-10.8)
[2020-07-24 11:34] LABS: Chloride 108 mmol/L (98-107); Sodium 140 mmol/L (136-145)
[2020-07-24 11:35] LABS: Potassium 4.1 mmoL/L (3.5-5.1)
[2020-07-24 11:37] LABS: Alanine Aminotransferase 20 U/L (12-78); Albumin Level 3.5 g/dl (3.5-5.0); Albumin/Globulin Ratio 1.3 (1.1-1.8); Alkaline Phosphatase 60 U/L (38-126); Anion Gap 12.1 mEq/L (5-15); Aspartate Amino Transferase 23 U/L (14-36); Bilirubin,Total 0.5 mg/dl (0.2-1.3); Blood Urea Nitrogen 16 mg/dl (7-17); Carbon Dioxide 24 mmol/L (22.0-30.0); Estimated Glomerular Filt Rate 68 ml/min (>60); GFR (African American) 82 ML/MIN (>60); Globulin 2.7 g/dL (1.3-3.2); Glucose 92 mg/dl (74-100); Total Protein,Serum 6.2 g/dl (6.3-8.2)
[2020-07-24 13:52] LABS: Appearance,Urine CLEAR (Clear); Bilirubin,Urine Negative (Negative); Blood, Urine Negative (Negative); Color,Urine YELLOW (Yellow); Glucose,Urine (UA) Negative (Negative); Ketones,Urine Negative (Negative); Leukocyte Esterase,Urine TRACE (Negative); Nitrate,Urine Negative (Negative); PH,Urine 5.5 (5.0-8.5); Protein,Urine Negative (Negative); Specific Gravity, Urine 1.025 (1.005-1.030); Urobilinogen,Urine 0.2 EU/dl (0.2)
[2020-07-24 14:14] LABS: RBC,Urine Occasional #/hpf (0-3)
== END ==
PROVIDERS: Nurse Practitioner Family; PCP Nurse Practitioner Family; Visit Provider Specialist
DX: K62.5 Hemorrhage of anus and rectum (principal); R10.11 Right upper quadrant pain; R10.9 Unspecified abdominal pain; R31.0 Gross hematuria
CPT/HCPCS: 36415; 74176; 80053; 81001; 85025

== ENCOUNTER → 2020-08-30 18:50 | Outpatient (CLI) | payer BC, SELFPAY | PROVIDERS: Visit Provider Nurse Practitioner Family | DX: N39.0 Urinary tract infection, site not specified (principal) | CPT/HCPCS: 87086 ==

== ENCOUNTER → 2020-09-13 17:56 | Outpatient (CLI) | payer BC, SELFPAY | PROVIDERS: Visit Provider Nurse Practitioner Family | DX: M54.9 Dorsalgia, unspecified (principal) | CPT/HCPCS: 87086 ==

== ENCOUNTER → 2020-10-15 10:01 | Outpatient (POV) | payer BC, SELFPAY ==
[2020-10-15 10:23] VITALS: BP 125/88; PULSE 74; RESP 18; TEMP 36.8; O2SAT 98; BMI 46.6
--- NOTE | 2020-10-15 12:34 | HMH.PMCON ---
Assessment and Plan (1) Degenerative joint disease (DJD) of lumbar spine Status: Chronic Category: Medical Code(s): M47.816 - Spondylosis without myelopathy or radiculopathy, lumbar region (2) Lumbar radiculopathy Status: Chronic Category: Medical Code(s): M54.16 - Radiculopathy, lumbar region - Assessment and plan all Dx Assessment and Plan for all problems:: Schedule the patient for an L4-L5 lumbar epidural steroid injection. She is not on any anticoagulation therapy. Given her symptomology I do believe she would benefit from this. I will follow-up with her after this reassess her symptoms at that time she has been instructed to call the office if she has any issues prior to her next appointment. Dr. Knapp has reviewed this note and agrees with this plan of care. This note was dictated using voice recognition software and may contain errors or omissions HPI - Data of Consult Consult date: 10/15/20 Requesting Physician: Heather Hines APRN Primary Care Provider: Jermaine Osborne APRN - Consult Narrative Reason for consult: Back pain, leg pain History of present illness: Ms. Barrera is a 45 year old female who presents today for consultation in regards to low back pain and low leg pain. She rates her pain a 4 out of 10. Any kind activity makes it worse well nothing decreases her pain. Patient has completed physical therapy with no relief. She has left leg pain numbness and tingling all the way to her toes. She does have an MRI showing pathology. Patient and I discussed injective therapy she is interested in pursuing this. She is failed medications and physical therapy for over 3 months. CC: Heather Hines APRN [facility] History I have reviewed the patient's past medical history: Yes Medical History: Reports:: Asthma, Gastroesophageal Reflux Disease(GERD), Hypertension, Internal Pacemaker, Migraine Denies:: Cancer, Diabetes Mellitus Type 1, Diabetes Mellitus Type 2, MRSA, Seizures *Have you ever received a pneumonia vaccine?: Yes *Have you received a flu vaccine this season?: Yes Other Medical History: Reports: Arthritis, Hypothyroidism, Thyroid Disease, Other. Denies: Blood Transfusion Reaction Laterality Cases: Left: Arthroscopy Knee, Right: Myringotomy (Ear Tubes) Other Surgeries: Yes: Appendectomy, Cancer Surgery, Cholecystectomy, Colonoscopy, Hysterectomy-Partial, Pacemaker, Sinus Surgery, Tubal Ligation, Other (bladder stimulater) Amputation: No Fractures: No - *Social History Smoking Status: Never smoker Tobacco Type: cigarettes # Packs/Day (cigarettes): 1 #Yrs smoked (if former smoker): 14 Alcohol Intake: never Alcohol Intake Frequency:: other Substance Use Type: denies use *Occupational Status:: retired Housing: house Household Members: other *Travel in the last 8 weeks: None Family Hx:: Unable to obtain Review of Systems - Review of Systems ROS General: no recent weight change, no fever, no sleep disturbances Respiratory: no cough, no shortness of air, no recurring pulmonary infections Cardiovascular/Peripheral Vascular: No chest pain, No palpitations, no edema, no shortness of breath. Gastrointestinal: no new onset incontinence, normal bowel movements reported Genitourinary: no new onset incontinence Musculoskeletal: Back pain, leg pain Psychiatric: normal mood/ affect Neurological: [denies new onset weakness in extremities], [denies new onset balance issues] Meds Home Medications Medication Instructions Recorded Confirmed Type montelukast 10 mg tablet 10 mg PO QAM #90 tab 02/01/18 10/08/20 Rx loratadine 10 mg tablet 10 mg PO QDAY #90 tab 07/30/18 10/08/20 Rx Fluticasone Furoate [Arnuity 100 mg PO DAILY 06/05/19 10/08/20 History Ellipta] azelastine 137 mcg (0.1 %) nasal 1 mcg INTRANASAL DAILY 10/10/19 10/08/20 History spray aerosol beclomethasone dipropionate 80 1 mcg INTRANASAL DAILY 10/10/19 10/08/20 History mcg/actuation nasal HFA inhaler estr
== END ==
PROVIDERS: PCP Nurse Practitioner Family; Visit Provider Clinical Nurse Specialist Family Health
DX: M47.896 Other spondylosis, lumbar region (principal); M54.16 Radiculopathy, lumbar region
CPT/HCPCS: 99202

== ENCOUNTER 2020-10-24 14:08 | Day surgery (SDC) | payer BC, SELFPAY ==
[2020-10-24 14:37] VITALS: BP 115/63; PULSE 93; RESP 18; TEMP 36.4; O2SAT 98; BMI 46.6
--- NOTE | 2020-10-24 15:21 | HMH.PMPROC ---
- Procedure Date: 10/24/20 Time: 15:22 Anesthesiologist:: Indra Knapp MD Complications:: None Pre-procedure Diagnosis:: Degenerative disc disease of lumbar spine with lumbar radiculopathy symptoms Post-procedure Diagnosis:: Same Indications for Procedure:: Patient is a pleasant 45-year-old white female who we are treating for low back pain with lumbar radiculopathy symptoms. She has increasing low back pain radiating to her left leg. She has failed all previous conservative therapy including physical therapy. We will do a lumbar pleural steroid injection today to help her with her pain symptoms. Procedure Details:: Lumbar epidural steroid injection under fluoroscopy informed consent was obtained and the risk and benefits of the procedure was explained to the patient. The patient was taken to the procedure room. The patient was placed prone on the procedure table. The patient was prepped and draped in sterile fashion. C-arm fluoroscopy was used to view the lumbar spine. Skin and subcutaneous tissues were anesthetized using lidocaine. I placed an 18-gauge epidural needle and advanced into the L4-L5 interspace using fluoroscopic guidance and [id number] to air. After confirmation of needle placement in the epidural space with dye I injected 2 mL of lidocaine 1.5% with Depo-Medrol 80 mg. Patient tolerated the procedure well with no complications. Plan and Disposition:: We will follow-up with her in 2 weeks. Will reevaluate her symptoms at that time.
[2020-10-24 15:23] VITALS: BP 122/74; PULSE 74; RESP 18
[2020-10-24 15:26] VITALS: BP 132/74; PULSE 85; RESP 18; O2SAT 98
[2020-10-24 15:38] VITALS: BP 124/59; PULSE 81; RESP 18; O2SAT 98
== END 2020-10-24 15:39 | disposition home or self-care (01) ==
LOC: SC.PAINP 14:09
PROVIDERS: PCP Nurse Practitioner Family; Visit Provider Anesthesiology
DX: M51.16 Intervertebral disc disorders with radiculopathy, lumbar region (principal); I10 Essential (primary) hypertension; K21.9 Gastro-esophageal reflux disease without esophagitis; E03.9 Hypothyroidism, unspecified; K76.0 Fatty (change of) liver, not elsewhere classified; K58.9 Irritable bowel syndrome, unspecified; J45.909 Unspecified asthma, uncomplicated; Z85.828 Personal history of other malignant neoplasm of skin; Z85.51 Personal history of malignant neoplasm of bladder; Z88.8 Allergy status to other drugs, medicaments and biological substances; Z88.0 Allergy status to penicillin; Z88.2 Allergy status to sulfonamides
CPT/HCPCS: 62323; J1040; Q9966

== ENCOUNTER → 2020-10-31 09:45 | Outpatient (CLI) | payer BC, SELFPAY ==
[2020-10-31 10:00] LABS: Basophils # 0.1 K/mm3 (0-0.2); Basophils % 0.7 % (0.1-2.0); Eosinophils # 0.2 K/mm3 (0.0-0.4); Eosinophils % 2.7 % (0.1-12.0); Hematocrit 44.7 % (37.0-47.0); Lymphocytes # 2.8 K/mm3 (0.7-4.5); Lymphocytes % 30.9 % (10-50); Mean Corpuscular HGB Conc 33.6 g/dL (31.8-35.4); Mean Corpuscular Volume 92.4 fl (81-99); Mean Platelet Volume 8.5 fl (7.4-10.4); Monocytes # 0.4 K/mm3 (0.1-1.0); Monocytes % 4.6 % (1.7-9.3); Neutrophils # 5.5 K/mm3 (1.8-7.8); Neutrophils % 61.2 % (37.0-80.0); Platelet Count 277 K/mm3 (142-424); Red Blood Count 4.84 M/mm3 (4.20-5.40)
--- NOTE | 2020-10-31 10:02 | ECG_ITS ---
APPROVED REPORT Exam: Resting ECG HR:89 bpm ECG Measurements Heart Rate 89 AXES [place] 116 P 36 QRSd 92 QRS 15 QT 382 T 32 QTc 464 Conclusion Normal sinus rhythm RSR' or QR pattern in V1 suggests right ventricular conduction delay Cannot rule out Anterior infarct, age undetermined Abnormal ECG Electronically signed by : Dinh Benton, 10/31/2020 17:10:19
[2020-10-31 12:33] LABS: Coronavirus 19 IgG Antibody Positive (Negative); Coronavirus 19 IgM Antibody Negative (Negative)
== END ==
PROVIDERS: Visit Provider Otolaryngology
DX: Z01.818 Encounter for other preprocedural examination (principal); Z86.19 Personal history of other infectious and parasitic diseases; Z96.22 Myringotomy tube(s) status; H65.02 Acute serous otitis media, left ear
CPT/HCPCS: 36415; 85025; 86328; 93005

== ENCOUNTER 2020-11-01 09:18 | Day surgery (SDC) | payer BC, SELFPAY ==
[2020-10-29 14:42] VITALS: BMI 46.6
[2020-11-01] VITALS (10 sets, daily range): BP systolic 105–127; BP diastolic 62–80; PULSE 67–92; RESP 12–18; TEMP 36.2–36.6; O2SAT 95–100
--- NOTE | 2020-11-01 11:31 | HMH.OPNOTE ---
Date of procedure: 11/01/20 Pre-op Diagnosis:: 1. Impacted myringotomy tube left ear 2. Left serous otitis media Post-op Diagnosis:: Same Procedure performed:: 1. Removal of impacted tube and cerumen left ear 2. Left myringotomy and tube placement Surgeon:: Jose Duckworth MD ASSOCIATE PROFESSOR PHYSICIAN:: Syed Cristobal Anesthesia: GETA Estimated blood loss (mL): 0 Operative findings:: same Operative note:: With patient under general anesthesia using the operating microscope for all the procedure the left ear was prepped and draped. There was an impacted previously placed ear tube in the left ear was which was completely surrounded by cerumen and impacted cerumen in the left ear. Using the alligator forceps the impacted cerumen in the impacted tube was removed. The ear was then thoroughly irrigated and an incision was made in the anterior-inferior quadrant, a triune T-tube was placed and serous fluid was aspirated, Ciprodex drops were applied and the patient was sent to recovery in good general condition. Condition: stable Disposition: PACU Complications:: none
--- NOTE | 2020-11-01 11:35 | HMH.ANESCL ---
[facility] Anesthesia Checklist - Structural Data Admitted From: Home Planned Operative Procedure/s: lmt Consent for Planned Operative Procedure(s) Verified: Yes - Additional verifications Anesthesia Reactions: No Hx Blood Transfusions: No Blood Transfusion Reaction: No - Airway Assessment C-Spine Mobility Assessed: Yes TMJ Mobility Assessed: Yes Dentition: Good Dentition - Neurological Assessment Level of Consciousness: Awake, Alert, Appropriate - Anesthesia Plan Anesthesia Risk discussed: Yes Anesthesia Plan: Verified ASA Class: III Anesthesia Type: General [facility] History I have reviewed the patient's past medical history: Yes Medical History: Reports:: Asthma, Cancer (bladder, skin), Gastroesophageal Reflux Disease(GERD), Hypertension, Migraine Denies:: Diabetes Mellitus Type 1, Diabetes Mellitus Type 2, Internal Pacemaker, MRSA, Seizures *Have you ever received a pneumonia vaccine?: Yes *Have you received a flu vaccine this season?: No Other Medical History: Reports: Arthritis, Hypothyroidism, Thyroid Disease, Other. Denies: Blood Transfusion Reaction Anesthesia experience/problems:: none Laterality Cases: Left: Arthroscopy Knee, Bilateral: Myringotomy (Ear Tubes) Other Surgeries: Yes: Appendectomy, Cancer Surgery, Cardiac Catheterization, Cholecystectomy, Colonoscopy, Hysterectomy-Partial, Sinus Surgery, Tubal Ligation, Other (bladder stimulator implant). No: Pacemaker Amputation: No Fractures: No - *Social History Last grade of school completed: High school graduate Smoking Status: Never smoker Tobacco Type: cigarettes # Packs/Day (cigarettes): 1 #Yrs smoked (if former smoker): 14 Alcohol Intake: never Alcohol Intake Frequency:: other Substance Use Type: denies use *Occupational Status:: unemployed Housing: house Household Members: other *Travel in the last 8 weeks: None Family Hx:: Asthma, Diabetes, Heart Attack, Hypertension
--- NOTE | 2020-11-01 11:35 | HMH.ANESI ---
[facility] Anesthesia Record Part I Intake, IV Amount: 1,000 Estimated blood loss (mL): 0 Urine output (mL): 0 Blood Pressure: 118/75 SaO2: 95 Pulse Rate: 92 Respiratory Rate: 12 Temperature: 97.1 F Patient is:: Awake, Stable Stable to PACU at:: 11:30
--- NOTE | 2020-11-01 17:58 | HMH.ANESII ---
[facility] Anesthesia Record Part II Discharge Time: 11:57 Destination: Surgical Day Care (OP Surgery) PACU nurse assessment reviewed?: Yes Patient Condition:: Good Anesthesia Complications:: None Swallowing reflex intact?: Yes Cyanosis?: No Blood Pressure: 126/80 Pulse Rate: 77 Temperature: 97.1 F Mental Status: Alert & Oriented Pain level:: 3 Nausea and/or vomitting:: None Intake, IV Amount: 0
== END 2020-11-01 12:31 | disposition home or self-care (01) ==
LOC: OR 09:19
PROVIDERS: PCP Nurse Practitioner Family; Visit Provider Otolaryngology
PROC: (CPT 69424; principal; 2020-11-01 10:30)
DX: H65.92 Unspecified nonsuppurative otitis media, left ear (principal); H61.22 Impacted cerumen, left ear; Z45.82 Encounter for adjustment or removal of myringotomy device (stent) (tube); J45.909 Unspecified asthma, uncomplicated; K21.9 Gastro-esophageal reflux disease without esophagitis; I10 Essential (primary) hypertension; G43.909 Migraine, unspecified, not intractable, without status migrainosus; Z85.828 Personal history of other malignant neoplasm of skin; Z85.51 Personal history of malignant neoplasm of bladder
CPT/HCPCS: 69424; 69990; 96374; J2405

== ENCOUNTER → 2020-11-06 14:35 | Outpatient (CLI) | payer BC, SELFPAY ==
--- NOTE | 2020-11-06 14:47 | XR_ITS ---
PROCEDURE: XR FOOT WT BEARING RT 3V CLINICAL INDICATION: foot pain COMPARISON: CR [id number] XR foot LT min 3V from 04/22/2018 FINDINGS: No fracture or dislocation. No lytic or blastic change. There is normal mineralization. The joint spaces are well-preserved. No significant degenerative/arthritic changes. No erosive changes evident. Other findings:None. IMPRESSION: No acute findings. Dictated by: Amado Lugo MD 11/06/2020 18:13 Amado Lugo MD in [place] 11/06/2020 18:13
--- NOTE | 2020-11-06 14:47 | XR_ITS ---
PROCEDURE: XR ANKLE WT BEARING RT MIN 3V CLINICAL INDICATION: ankle pain COMPARISON: No exams were available for comparison FINDINGS: No fracture or dislocation. No lytic or blastic change. There is normal mineralization. The joint spaces are well-preserved. No significant degenerative/arthritic changes. No erosive changes evident. Other findings:None. IMPRESSION: No acute findings. Dictated by: Amado Lugo MD 11/06/2020 18:16 Amado Lugo MD in [place] 11/06/2020 18:16
--- NOTE | 2020-11-06 14:47 | XR_ITS ---
PROCEDURE: XR ANKLE WT BEARING LT MIN 3V CLINICAL INDICATION: ankle pain COMPARISON: CR XR FOOT WT BEARING LT 3V from 11/06/2020 FINDINGS: No fracture or dislocation. No lytic or blastic change. There is normal mineralization. The joint spaces are well-preserved. No significant degenerative/arthritic changes. No erosive changes evident. Other findings:Just posterior to the posterior talar process there is a faint opacity and could be due to an avulsion injury. Small calcific density is present between the proximal aspect of the 1st and 2nd metatarsals of questionable clinical significance. There is normal alignment. IMPRESSION: Faint density posterior to the posterior talar process and could be due to a an old avulsion fracture Dictated by: Amado Lugo MD 11/06/2020 18:16 Amado Lugo MD in [place] 11/06/2020 18:16
--- NOTE | 2020-11-06 14:57 | XR_ITS ---
PROCEDURE: XR HIP LT 2-3V W/PELVIS CLINICAL INDICATION: left hip pain Chronic left hip pain COMPARISON: CR [id number] HIP LT 2-3V W/PELVIS IF PERFOR from 06/09/2017 FINDINGS: There are mild osteoarthritic changes of the hips. No fracture or dislocation. No lytic or blastic change. Neurostimulator device is present overlying the right sacral region. IMPRESSION: Mild osteoarthritis of the hips Dictated by: Amado Lugo MD 11/06/2020 17:54 Amado Lugo MD in [place] 11/06/2020 17:54
--- NOTE | 2020-11-06 14:57 | XR_ITS ---
PROCEDURE: XR KNEE LT 4V CLINICAL INDICATION: left knee pain COMPARISON: CR [id number] KNEE-4 OR 5 VIEWS-RT from 07/09/2016 CR [id number] XR knee LT 4V from 08/11/2018 CR XR KNEE RT 4V from 12/27/2019 CR XR KNEE LT 4V from 12/27/2019 FINDINGS: There are severe osteoarthritic changes at the patellofemoral joint with prominent osteophyte formation with mild osteoarthritis the medial compartment and lateral compartment. Calcifications overlie the lateral joint space consistent with either loose body or overlying osteophyte. Calcifications noted in the suprapatellar region possibly due to patellar enthesophyte as opposed to loose body. Prominent bony hypertrophy is present along the distal femur posteriorly with calcification projecting over the popliteal fossa consistent with a loose body. Consider CT for confirmation. IMPRESSION: Overall no change in the severe patellofemoral osteoarthritis with possible loose bodies which may be confirmed with CT. Dictated by: Amado Lugo MD 11/06/2020 18:04 Amado Lugo MD in [place] 11/06/2020 18:04
== END ==
PROVIDERS: PCP Nurse Practitioner Family; Visit Provider Podiatrist
DX: M79.672 Pain in left foot (principal); M79.671 Pain in right foot; M25.562 Pain in left knee; M25.552 Pain in left hip
CPT/HCPCS: 73502; 73564; 73610; 73630

== ENCOUNTER → 2020-11-14 13:51 | Outpatient (CLI) | payer BC, SELFPAY ==
[2020-11-14 14:24] LABS: Basophils # 0.1 K/mm3 (0-0.2); Basophils % 0.9 % (0.1-2.0); Eosinophils # 0.2 K/mm3 (0.0-0.4); Eosinophils % 1.3 % (0.1-12.0); Hematocrit 41.7 % (37.0-47.0); Hemoglobin 14.2 g/dL (12.2-16.2); Lymphocytes # 2.8 K/mm3 (0.7-4.5); Lymphocytes % 23.5 % (10-50); Mean Corpuscular Hemoglobin 31.4 pg (27.0-31.2); Mean Corpuscular Volume 92.3 fl (81-99); Mean Platelet Volume 9.4 fl (7.4-10.4); Monocytes # 0.6 K/mm3 (0.1-1.0); Monocytes % 4.7 % (1.7-9.3); Neutrophils # 8.3 K/mm3 (1.8-7.8); Neutrophils % 69.6 % (37.0-80.0); Platelet Count 268 K/mm3 (142-424); Red Blood Count 4.52 M/mm3 (4.20-5.40); Red Cell Distribution Width 14.4 % (11.5-17.5); White Blood Count 11.9 K/mm3 (4.8-10.8)
[2020-11-14 14:34] LABS: Chloride 103 mmol/L (98-107); Potassium 4.7 mmoL/L (3.5-5.1); Sodium 136 mmol/L (136-145)
[2020-11-14 14:36] LABS: Alanine Aminotransferase 20 U/L (12-78); Alkaline Phosphatase 78 U/L (38-126); Aspartate Amino Transferase 18 U/L (14-36); Bilirubin,Total 0.6 mg/dl (0.2-1.3); Blood Urea Nitrogen 21 mg/dl (7-17); Estimated Glomerular Filt Rate 78 ml/min (>60); GFR (African American) 94 ML/MIN (>60)
[2020-11-14 14:37] LABS: Albumin/Globulin Ratio 1.3 (1.1-1.8); Anion Gap 12.7 mEq/L (5-15); Calcium 9.8 mg/dl (8.4-10.2); Carbon Dioxide 25 mmol/L (22.0-30.0); Globulin 3.1 g/dL (1.3-3.2); Glucose 97 mg/dl (74-100); Total Protein,Serum 7.1 g/dl (6.3-8.2)
[2020-11-14 14:54] LABS: Free T4 (Free Thyroxine) 1.17 ng/dl (0.78-2.19)
[2020-11-14 18:06] LABS: Hemoglobin A1C 5.3 % (4.0-6.0)
== END ==
PROVIDERS: Visit Provider Nurse Practitioner Family
DX: E11.9 Type 2 diabetes mellitus without complications (principal); R73.09 Other abnormal glucose
CPT/HCPCS: 80053; 83036; 84439; 84443; 85025

== ENCOUNTER → 2020-11-15 08:41 | Outpatient (CLI) | payer BC, SELFPAY ==
--- NOTE | 2020-11-15 08:41 | US_ITS ---
PROCEDURE: US THYROID CLINICAL INDICATION: hx of nodule COMPARISON: US THY US THYROID from 04/13/2017 US US THYROID from 01/23/2020 FINDINGS: Right lobe: 0.8cm x 3.9cm x 1.7cm Left lobe: 0.8cm x 3.1cm x 1.1cm Isthmus: Unremarkable Additional findings: There is diffuse heterogeneous echogenicity of the right lobe of the thyroid gland. In the lower pole medially there is a 9 x 7 mm hypoechoic nodule. This nodule is not well demonstrated on the most recent exam but was present on 04/13/2017 and measured approximately 7 x 7 mm only slightly larger TR level 3. Less than 2.5 cm. Continued follow-up suggested. A 5 mm cyst is present in the lower pole benign-appearing. In addition, there is a 12 x 5 mm hypoechoic well-circumscribed nodule along the lower pole posteriorly and may be due to a parathyroid gland not significantly changed. The left lobe has an unremarkable appearance.. IMPRESSION: Slightly more prominent hypoechoic nodule lower pole on the right less than 2.5 cm TR level 3. Continued annual follow-up suggested. No change in the dominant nodule which is posterior on the right and may be due to parathyroid gland. Dictated by: Amado Lugo MD 11/16/2020 09:04 Amado Lugo MD in [place] 11/16/2020 09:04
== END ==
PROVIDERS: PCP Nurse Practitioner Family; Visit Provider Otolaryngology
DX: E03.9 Hypothyroidism, unspecified (principal)
CPT/HCPCS: 76536

== ENCOUNTER → 2020-11-15 09:47 | Outpatient (CLI) | payer BC, SELFPAY ==
[2020-11-15 11:17] LABS: Thyroid Stimulating Hormone 3.29 uIU/mL (0.465-4.68)
== END ==
PROVIDERS: Otolaryngology; Visit Provider Nurse Practitioner Family
DX: E03.9 Hypothyroidism, unspecified (principal)
CPT/HCPCS: 36415; 84439; 84443

== ENCOUNTER → 2020-11-15 11:53 | Outpatient (POV) | payer BC, SELFPAY ==
[2020-11-15 12:12] VITALS: BP 132/78; PULSE 79; RESP 18; O2SAT 98; BMI 48.2
--- NOTE | 2020-11-15 12:49 | HMH.PAINSOAP ---
[facility] Pain Management SOAP Note Subjective:: Patient is a pleasant 45-year-old white female who presents today for follow-up after lumbar epidural steroid injection. Patient has had 100% relief of her symptomology. She is done extremely well she would like to follow-up on an as-needed basis. She rates her pain today 0 out of 10 ROS General: no recent weight change, no fever, no sleep disturbances Respiratory: no cough, no shortness of air, no recurring pulmonary infections Cardiovascular/Peripheral Vascular: No chest pain, No palpitations, no edema, no shortness of breath. Gastrointestinal: no new onset incontinence, normal bowel movements reported Genitourinary: no new onset incontinence Musculoskeletal: Back pain at times Psychiatric: normal mood/ affect Neurological: [denies new onset weakness in extremities], [denies new onset balance issues] Objective:: Physical Exam General: Alert and oriented x3, no acute distress, pleasant and cooperative, [on room air] Lungs: Resps E/U, Symmetrical chest expansion, Eyes: PERRL Musculoskeletal: Flexion and extension of lumbar spine somewhat guarded secondary to pain, deep tendon reflexes normal, strength in upper and lower extremities [5/5], [abnormal gait noted] Neurological: speech clear, cosmetic sales consultant equal, no gross sensory deficits Assessment:: Degenerative disc disease lumbar spine lumbar radiculopathy symptoms Plan:: We will see the patient back on an as-needed basis overall she is doing well. If her pain begins to return she has been instructed to contact the office. Dr. Knapp has reviewed this note and agrees with this plan of care. This note was dictated using voice recognition software and may contain errors or omissions [facility] History I have reviewed the patient's past medical history: Yes Medical History: Reports:: Asthma, Cancer, Gastroesophageal Reflux Disease(GERD), Hypertension, Migraine Denies:: Diabetes Mellitus Type 1, Diabetes Mellitus Type 2, Internal Pacemaker, MRSA, Seizures *Have you ever received a pneumonia vaccine?: Yes *Have you received a flu vaccine this season?: Yes Other Medical History: Reports: Arthritis, Hypothyroidism, Thyroid Disease, Other. Denies: Blood Transfusion Reaction Laterality Cases: Left: Arthroscopy Knee, Bilateral: Myringotomy (Ear Tubes) Other Surgeries: Yes: Appendectomy, Cancer Surgery, Cardiac Catheterization, Cholecystectomy, Colonoscopy, Hysterectomy-Partial, Sinus Surgery, Tubal Ligation, Other (bladder stimulator implant). No: Pacemaker Amputation: No Fractures: No - *Social History Smoking Status: Never smoker Tobacco Type: cigarettes # Packs/Day (cigarettes): 1 #Yrs smoked (if former smoker): 14 Alcohol Intake: never Alcohol Intake Frequency:: other Substance Use Type: denies use *Occupational Status:: other Housing: house Household Members: other *Travel in the last 8 weeks: None Family Hx:: Asthma, Diabetes, Heart Attack, Hypertension
== END ==
PROVIDERS: PCP Nurse Practitioner Family; Visit Provider Clinical Nurse Specialist Family Health
DX: M51.16 Intervertebral disc disorders with radiculopathy, lumbar region (principal)
CPT/HCPCS: 99212; G0463

== ENCOUNTER → 2020-12-20 13:54 | Outpatient (CLI) | payer BC, SELFPAY ==
--- NOTE | 2020-12-20 14:02 | XR_ITS ---
PROCEDURE: XR KNEE LT 4V CLINICAL INDICATION: left knee pain; weightbearing COMPARISON: CR [id number] XR knee LT 4V from 08/11/2018 CR XR KNEE RT 4V from 12/27/2019 CR XR KNEE LT 4V from 12/27/2019 CR XR KNEE LT 4V from 11/06/2020 FINDINGS: No fracture or dislocation. No lytic or blastic change. There is normal mineralization. There are severe osteoarthritic changes of the patellofemoral joint. Mild osteoarthritis is present at the medial and lateral compartment. Loose bodies are present in the popliteal fossa once again noted. Calcifications also present along the superior patellar region and could also represent loose bodies in at area. Also suspect a loose body in lateral joint space anteriorly. IMPRESSION: Osteoarthritic changes with loose bodies as described above Dictated by: Amado Lugo MD 12/20/2020 14:58 Amado Lugo MD in [place] 12/20/2020 14:58
== END ==
PROVIDERS: PCP Nurse Practitioner Family; Visit Provider Orthopaedic Surgery
DX: M25.562 Pain in left knee (principal)
CPT/HCPCS: 73564

== ENCOUNTER → 2021-01-03 14:07 | Outpatient (CLI) | payer BC, SELFPAY ==
[2021-01-03 14:19] LABS: Alanine Aminotransferase 21 U/L (12-78); Albumin Level 3.7 g/dl (3.5-5.0); Albumin/Globulin Ratio 1.2 (1.1-1.8); Alkaline Phosphatase 94 U/L (38-126); Anion Gap 12.4 mEq/L (5-15); Aspartate Amino Transferase 24 U/L (14-36); Bilirubin,Total 0.6 mg/dl (0.2-1.3); Blood Urea Nitrogen 14 mg/dl (7-17); Calcium 9.3 mg/dl (8.4-10.2); Carbon Dioxide 25 mmol/L (22.0-30.0); Chloride 106 mmol/L (98-107); Estimated Glomerular Filt Rate 68 ml/min (>60); GFR (African American) 82 ML/MIN (>60); Globulin 3.1 g/dL (1.3-3.2); Glucose 108 mg/dl (74-100); Potassium 4.4 mmoL/L (3.5-5.1); Sodium 139 mmol/L (136-145); Total Protein,Serum 6.8 g/dl (6.3-8.2)
[2021-01-03 14:30] LABS: Basophils # 0.1 K/mm3 (0-0.2); Basophils % 0.8 % (0.1-2.0); Eosinophils # 0.3 K/mm3 (0.0-0.4); Eosinophils % 4.4 % (0.1-12.0); Hematocrit 40.4 % (37.0-47.0); Hemoglobin 13.4 g/dL (12.2-16.2); Lymphocytes # 1.8 K/mm3 (0.7-4.5); Lymphocytes % 24.9 % (10-50); Mean Corpuscular Hemoglobin 30.7 pg (27.0-31.2); Monocytes # 0.4 K/mm3 (0.1-1.0); Monocytes % 4.7 % (1.7-9.3); Neutrophils # 4.8 K/mm3 (1.8-7.8); Neutrophils % 65.2 % (37.0-80.0); Platelet Count 254 K/mm3 (142-424); Red Blood Count 4.35 M/mm3 (4.20-5.40); White Blood Count 7.4 K/mm3 (4.8-10.8)
[2021-01-03 14:37] LABS: T4 (Thyroxine) 9.5 ug/dl (5.53-11.0)
[2021-01-03 14:46] LABS: 25-OH Vitamin D, Total < 12.8 ng/mL (30-100)
[2021-01-03 14:51] LABS: Thyroid Stimulating Hormone 2.68 uIU/mL (0.465-4.68)
[2021-01-03 15:08] LABS: Vitamin B12 373 pg/mL (239-931)
== END ==
PROVIDERS: Visit Provider Nurse Practitioner Family
DX: R53.83 Other fatigue (principal); I10 Essential (primary) hypertension; E55.9 Vitamin D deficiency, unspecified
CPT/HCPCS: 80053; 82306; 82607; 84436; 84443; 85025

== ENCOUNTER → 2021-01-08 10:52 | Outpatient (CLI) | payer BC, SELFPAY ==
[2021-01-08 11:34] LABS: Basophils # 0.1 K/mm3 (0-0.2); Basophils % 0.9 % (0.1-2.0); Eosinophils # 0.3 K/mm3 (0.0-0.4); Eosinophils % 3.6 % (0.1-12.0); Hematocrit 43.9 % (37.0-47.0); Hemoglobin 14.4 g/dL (12.2-16.2); Lymphocytes # 2.2 K/mm3 (0.7-4.5); Mean Corpuscular HGB Conc 32.8 g/dL (31.8-35.4); Mean Corpuscular Hemoglobin 30.4 pg (27.0-31.2); Mean Corpuscular Volume 92.7 fl (81-99); Monocytes # 0.4 K/mm3 (0.1-1.0); Monocytes % 4.7 % (1.7-9.3); Neutrophils # 6.2 K/mm3 (1.8-7.8); Neutrophils % 66.9 % (37.0-80.0); Platelet Count 298 K/mm3 (142-424); Red Blood Count 4.74 M/mm3 (4.20-5.40); Red Cell Distribution Width 14.1 % (11.5-17.5); White Blood Count 9.2 K/mm3 (4.8-10.8)
[2021-01-08 12:09] LABS: Chloride 106 mmol/L (98-107); Potassium 5.1 mmoL/L (3.5-5.1); Sodium 138 mmol/L (136-145)
[2021-01-08 12:11] LABS: Alanine Aminotransferase 22 U/L (12-78); Alkaline Phosphatase 99 U/L (38-126); Aspartate Amino Transferase 24 U/L (14-36); Bilirubin,Total 0.7 mg/dl (0.2-1.3); Blood Urea Nitrogen 22 mg/dl (7-17); Estimated Glomerular Filt Rate 60 ml/min (>60); GFR (African American) 73 ML/MIN (>60)
[2021-01-08 12:12] LABS: Albumin Level 4.4 g/dl (3.5-5.0); Albumin/Globulin Ratio 1.3 (1.1-1.8); Anion Gap 11.1 mEq/L (5-15); Calcium 9.9 mg/dl (8.4-10.2); Carbon Dioxide 26 mmol/L (22.0-30.0); Chol/HDL Ratio 3.8 (1-3.5); Cholesterol 190 mg/dl (140-200); Globulin 3.3 g/dL (1.3-3.2); Glucose 115 mg/dl (74-100); HDL Cholesterol 50 mg/dl (40-60); Total Protein,Serum 7.7 g/dl (6.3-8.2); Triglycerides 151 mg/dl (30-150); VLDL Cholesterol 30 mg/dL (0-40)
[2021-01-08 12:23] LABS: Direct LDL Cholesterol 121.78 mg/dL (100-129)
== END ==
PROVIDERS: Visit Provider Nurse Practitioner Obstetrics & Gynecology
DX: Z01.419 Encounter for gynecological examination (general) (routine) without abnormal findings (principal)
CPT/HCPCS: 36415; 80053; 80061; 85025

== ENCOUNTER → 2021-02-22 10:06 | Outpatient (CLI) | payer BC, SELFPAY ==
[2021-02-22 10:34] LABS: Basophils # 0.1 K/mm3 (0-0.2); Basophils % 0.9 % (0.1-2.0); Eosinophils # 0.2 K/mm3 (0.0-0.4); Eosinophils % 2.3 % (0.1-12.0); Hematocrit 38.4 % (37.0-47.0); Hemoglobin 12.4 g/dL (12.2-16.2); Lymphocytes # 1.9 K/mm3 (0.7-4.5); Lymphocytes % 22.4 % (10-50); Mean Corpuscular HGB Conc 32.2 g/dL (31.8-35.4); Mean Corpuscular Hemoglobin 29.3 pg (27.0-31.2); Mean Corpuscular Volume 90.9 fl (81-99); Mean Platelet Volume 8.1 fl (7.4-10.4); Monocytes # 0.4 K/mm3 (0.1-1.0); Monocytes % 4.1 % (1.7-9.3); Neutrophils % 70.3 % (37.0-80.0); Platelet Count 217 K/mm3 (142-424); Red Blood Count 4.23 M/mm3 (4.20-5.40); Red Cell Distribution Width 13.4 % (11.5-17.5); White Blood Count 8.6 K/mm3 (4.8-10.8)
[2021-02-22 11:29] LABS: Chloride 105 mmol/L (98-107); Potassium 4.5 mmoL/L (3.5-5.1); Sodium 136 mmol/L (136-145)
[2021-02-22 11:32] LABS: Alanine Aminotransferase 17 U/L (12-78); Albumin Level 3.6 g/dl (3.5-5.0); Albumin/Globulin Ratio 1.2 (1.1-1.8); Alkaline Phosphatase 84 U/L (38-126); Anion Gap 11.5 mEq/L (5-15); Aspartate Amino Transferase 17 U/L (14-36); Bilirubin,Total 0.6 mg/dl (0.2-1.3); Blood Urea Nitrogen 17 mg/dl (7-17); Carbon Dioxide 24 mmol/L (22.0-30.0); Chol/HDL Ratio 3.6 (1-3.5); Cholesterol 177 mg/dl (140-200); Estimated Glomerular Filt Rate 78 ml/min (>60); GFR (African American) 94 ML/MIN (>60); Globulin 2.9 g/dL (1.3-3.2); Glucose 101 mg/dl (74-100); HDL Cholesterol 49 mg/dl (40-60); Total Protein,Serum 6.5 g/dl (6.3-8.2); Triglycerides 109 mg/dl (30-150); VLDL Cholesterol 22 mg/dL (0-40)
[2021-02-22 11:43] LABS: Direct LDL Cholesterol 103.27 mg/dL (100-129)
[2021-02-22 11:49] LABS: 25-OH Vitamin D, Total 13.3 ng/mL (30-100)
[2021-02-22 11:50] LABS: T4 (Thyroxine) 8.8 ug/dl (5.53-11.0)
[2021-02-22 12:04] LABS: Thyroid Stimulating Hormone 4.67 uIU/mL (0.465-4.68)
[2021-02-22 12:15] LABS: Hemoglobin A1C 5.1 % (4.0-6.0)
== END ==
PROVIDERS: Visit Provider Nurse Practitioner Family
DX: E03.9 Hypothyroidism, unspecified (principal); E55.9 Vitamin D deficiency, unspecified; E66.01 Morbid (severe) obesity due to excess calories; I10 Essential (primary) hypertension; R53.83 Other fatigue; R73.09 Other abnormal glucose; Z68.42 Body mass index [BMI] 45.0-49.9, adult
CPT/HCPCS: 36415; 80053; 80061; 82306; 83036; 84436; 84443; 85025

== ENCOUNTER → 2021-03-04 09:31 | Outpatient (CLI) | payer BC, SELFPAY ==
--- NOTE | 2021-03-04 10:15 | PC.NURSE ---
PFT Completed without incident. Albuterol 0.083% given per protocol, via HHN, Pt tolerated tx well.
== END ==
PROVIDERS: PCP Nurse Practitioner Family; Visit Provider Internal Medicine Pulmonary Disease
DX: R06.09 Other forms of dyspnea (principal)
CPT/HCPCS: 94060; 94726; 94729

== ENCOUNTER 2021-03-05 19:04 | Emergency (ER) | payer BC, SELFPAY ==
[2021-03-05 19:05] VITALS: BP 117/84; PULSE 104; RESP 17; TEMP 37.3; O2SAT 98; BMI 47.7
--- NOTE | 2021-03-05 19:49 | HMH.EDUTC ---
[facility] [place] Clinical Impression: Sinusitis Qualifiers: Sinusitis location: unspecified location Chronicity: acute Recurrence: non-recurrent Qualified Code(s): J01.90 - Acute sinusitis, unspecified Otitis media Qualifiers: Otitis media type: suppurative Chronicity: acute Laterality: bilateral Recurrence: non-recurrent Spontaneous tympanic membrane rupture: without spontaneous rupture Qualified Code(s): H66.003 - Acute suppurative otitis media without spontaneous rupture of ear drum, bilateral Disposition: Home, Self-Care Condition on Discharge: Good Instructions: Middle Ear Infection, DI for Sinusitis Additional Instructions: Drink plenty of fluids. Take tylenol or ibuprofen for pain or fever. Take the medications as directed. Follow up with your regular doctor. GO TO THE ER FOR ANY WORSENING SYMPTOMS Prescriptions: Ondansetron [Zofran 4mg ODT] 4 mg PO Q8HP PRN #12 tab.rapdis PRN Reason: Nausea Transmission Status: Received by [facility] predniSONE [Deltasone 10mg tablet] 10 mg PO BID 3 Days #6 tab Transmission Status: Received by [facility] Cefdinir [Omnicef 300mg Capsule] 300 mg PO BID #20 cap Transmission Status: Received by [facility] Referrals: Darien Hoyt APRN [Primary Care Provider] - Time of Disposition: 20:00 Medical Decision Making - Medical Records Medical records reviewed: No: I reviewed the patient's medical records. - Ab Inquiry Pt receiving controlled substance: No Vital Signs: 03/05/21 19:05 03/05/21 20:08 Temperature 99.1 F 99.1 F Temperature Source Oral Pulse Rate 104 H Pulse Rate [Left Brachial] 104 H Respiratory Rate 17 17 Blood Pressure 117/84 Blood Pressure [Left Arm] 117/84 Blood Pressure Mean [Left Arm] 95 Blood Pressure Source [Left Arm] Automatic Cuff Blood Pressure Position [Left Arm] Sitting 02 Sat by Pulse Oximetry 98 Oxygen Delivery Method Room Air - Lab Data Lab results reviewed: Yes: I reviewed the patient's lab results. Lab Results 03/05/21 19:15: Strep Scn [facility] Negative 03/05/21 19:25: Influenza Type A Ag Negative, Influenza Type B Ag Negative Orders (Tests/Meds): ORDERS Category Date Time Status Strep Screen Confirmation Stat Micro 03/05/21 19:15 Received [facility] [place] HPI - General Stated complaint: loss of appetite, sore throat, tired Time Seen by Provider: 03/05/21 19:49 Mode of Arrival: Ambulatory Source of Information: Patient Limitations: No Limitations Description of Symptoms (Recalled from Triage Doc. by RN): PATIENT C/O WEAKNESS, BODY ACHES, DECREASED APPETITE, CHILLS, AND SORE THROAT SINCE YESTERDAY HEENT Symptoms (Recalled from RN notes): No Resp Symptoms (Recalled from RN notes): No Skin Symptoms (Recalled from RN notes): No MS Symptoms (Recalled from RN notes): Yes Functional Status (Recalled from RN notes): WNL - History of Present Illness Provider Complaint: she c/o sore throat, ear pain and feeling bad for the past 2 days. - Related Data Home Medications Medication Instructions Recorded Confirmed Fluticasone Furoate [Arnuity 100 mg PO DAILY 06/05/19 02/19/21 Ellipta] cyclobenzaprine 5 mg tablet 5 mg PO DAILY tab 02/23/20 02/19/21 epinephrine 0.3 mg/0.3 mL 0.3 ml SQ DIRECTED PRN each 07/17/20 02/19/21 injection, auto-injector albuterol sulfate 90 mcg/actuation 90 neb INHALATION NEEDED PRN 08/16/20 02/19/21 aerosol inhaler omeprazole 40 mg capsule,delayed 40 mg PO DAILY cap 08/16/20 02/19/21 release plecanatide 3 mg tablet 3 mg PO DAILY tab 08/16/20 02/19/21 Fexofenadine HCl [Aller-Ease] 180 mg PO DAILY 10/24/20 02/19/21 Galcanezumab-Gnlm [Emgality Pen] 120 mg SQ QMONTH 10/24/20 02/19/21 Rizatriptan Benzoate [Rizatriptan] See Rx Instructions PO .COMPLEX 10/24/20 02/19/21 hyoscyamine sulfate 0.125 mg 0.125 mg PO tab 11/19/20 02/19/21 sublingual tablet ergocalciferol (vitamin D2) 1,250 1,250 mcg PO WEEKLY cap 11/29/2002/19
[2021-03-05 19:58] LABS: UTC Influenza A Antigen Negative (Negative); UTC Influenza B Antigen Negative (Negative)
[2021-03-05 19:59] LABS: UTC Strep Screen (Rapid) Negative (Negative)
[2021-03-05 20:08] VITALS: BP 117/84; PULSE 104; RESP 17; TEMP 37.3; O2SAT 98
== END 2021-03-05 20:11 | disposition home or self-care (01) ==
PROVIDERS: Emergency Provider Nurse Practitioner Family; PCP Nurse Practitioner Family
DX: J01.90 Acute sinusitis, unspecified (principal); H66.003 Acute suppurative otitis media without spontaneous rupture of ear drum, bilateral; I10 Essential (primary) hypertension; K21.9 Gastro-esophageal reflux disease without esophagitis; G43.709 Chronic migraine without aura, not intractable, without status migrainosus; Z91.040 Latex allergy status; Z88.0 Allergy status to penicillin; Z88.2 Allergy status to sulfonamides; Z88.8 Allergy status to other drugs, medicaments and biological substances; Z79.899 Other long term (current) drug therapy
CPT/HCPCS: 87804; 87880; 99202; G0463; U0003

== ENCOUNTER → 2021-03-27 22:04 | Outpatient (CLI) | payer BC, SELFPAY ==
[2021-03-27 22:49] LABS: C-Reactive Protein 5.6 mg/L (0-4)
[2021-03-27 22:53] LABS: Erythrocyte Sedimentation Rate 26 mm/hr (0-20)
[2021-03-29 11:16] LABS: RA Latex Turbid. <10.0 IU/mL (0.0-13.9)
[2021-03-29 13:52] LABS: Anti-Centromere B Antibodies <0.2 AI (0.0-0.9); Anti-DNA (DS) Ab Qn <1 IU/mL (0-9); Anti-Jo-1 <0.2 AI (0.0-0.9); Anti-Smith Antibody <0.2 AI (0.0-0.9); Antichromatin Antibodies <0.2 AI (0.0-0.9); Antiscleroderma-70 Antibodies <0.2 AI (0.0-0.9); RNP Antibodies 0.3 AI (0.0-0.9); Sjogren's Anti-SS-A <0.2 AI (0.0-0.9); Sjogren's Anti-SS-B <0.2 AI (0.0-0.9)
== END ==
PROVIDERS: Visit Provider Nurse Practitioner Family
DX: E66.01 Morbid (severe) obesity due to excess calories (principal); M25.50 Pain in unspecified joint; R53.83 Other fatigue; M79.672 Pain in left foot; Z68.42 Body mass index [BMI] 45.0-49.9, adult
CPT/HCPCS: 85651; 86140; 86225; 86235; 86431

== ENCOUNTER → 2021-03-28 13:35 | Outpatient (CLI) | payer BC, SELFPAY ==
--- NOTE | 2021-03-28 13:35 | MM_ITS ---
PROCEDURE INFORMATION: Exam: MG Screening 3D Mammography Exam date and time: 03/28/2021 1:35 PM Age: 45 years old Clinical indication: Routine screening mammogram TECHNIQUE: Imaging protocol: Screening tomosynthesis and 2D mammography including computer-aided detection (CAD) when performed. COMPARISON: 1. MG MM DIG MAMM BI DX W/CAD 02/03/2020 2:42 PM 2. MG MM DIG SCREENING MAMM BI W/CAD 01/26/2020 2:20 PM FINDINGS: MAMMOGRAPHY: Breast composition: The breasts are almost entirely fatty. Mass: None. Architectural distortion: None. Calcifications: No suspicious calcifications. Asymmetric density: None. Skin thickening: None. Axillary adenopathy: None. IMPRESSION: No mammographic evidence of malignancy. Annual screening is recommended unless otherwise clinically indicated. ASSESSMENT: BI-RADS Category 1: Negative
== END ==
PROVIDERS: PCP Nurse Practitioner Family; Visit Provider Nurse Practitioner Obstetrics & Gynecology
DX: Z12.31 Encounter for screening mammogram for malignant neoplasm of breast (principal)
CPT/HCPCS: 77063; 77067

== ENCOUNTER → 2021-04-09 13:03 | Outpatient (CLI) | payer BC, SELFPAY ==
--- NOTE | 2021-04-09 13:15 | XR_ITS ---
PROCEDURE: XR DEXA AXIAL SKELETON CLINICAL HISTORY: screening COMPARISON: No exams were available for comparison FINDINGS: The right hip BMD is 0.789 with a T-score of -0.5. The left hip BMD is 0.808 with a T-score of -1.1. The lumbar spine BMD is 0.992 with a T-score of -0.5. IMPRESSION: This patient is considered osteopenic according to the World Health Organization criteria. Bone density is between 10 and 25 percent below young normal. Fracture risk is moderate. Treatment is advised. Based on these results a follow-up exam is recommended in 2 years. Dictated by: Arsen Arias MD 04/12/2021 11:17 Arsen Arias MD in [place] 04/12/2021 11:17
[2021-04-09 13:21] LABS: Basophils # 0.1 K/mm3 (0-0.2); Basophils % 0.8 % (0.1-2.0); Eosinophils # 0.2 K/mm3 (0.0-0.4); Eosinophils % 2.4 % (0.1-12.0); Hematocrit 39.4 % (37.0-47.0); Hemoglobin 13.5 g/dL (12.2-16.2); Lymphocytes # 2.2 K/mm3 (0.7-4.5); Lymphocytes % 27.2 % (10-50); Mean Corpuscular HGB Conc 34.2 g/dL (31.8-35.4); Mean Corpuscular Hemoglobin 29.9 pg (27.0-31.2); Mean Corpuscular Volume 87.6 fl (81-99); Mean Platelet Volume 8.8 fl (7.4-10.4); Monocytes # 0.3 K/mm3 (0.1-1.0); Monocytes % 3.6 % (1.7-9.3); Neutrophils # 5.3 K/mm3 (1.8-7.8); Platelet Count 239 K/mm3 (142-424)
== END ==
PROVIDERS: PCP Nurse Practitioner Family; Visit Provider Nurse Practitioner Family
DX: Z13.820 Encounter for screening for osteoporosis (principal); Z01.818 Encounter for other preprocedural examination; Z11.52 Encounter for screening for COVID-19; J30.9 Allergic rhinitis, unspecified; H92.03 Otalgia, bilateral; M85.89 Other specified disorders of bone density and structure, multiple sites
CPT/HCPCS: 36415; 77080; 85025; U0003

== ENCOUNTER 2021-04-18 07:01 | Day surgery (SDC) | payer BC, SELFPAY ==
[2021-04-04 16:35] VITALS: BMI 47.7
[2021-04-18] VITALS (9 sets, daily range): BP systolic 101–140; BP diastolic 69–82; PULSE 70–91; RESP 16–20; TEMP 36.1–36.2; O2SAT 91–99
--- NOTE | 2021-04-18 08:47 | P.PN_ITS ---
[facility] Anesthesia Checklist - Patient Identification Patient Identification: Arm Band - Structural Data Admitted From: Home Planned Operative Procedure/s: Removal of Right Impacted Myringotomy Tube, Placement of Right MT Consent for Planned Operative Procedure(s) Verified: Yes Verified Documents: Surgical Consent, History and Physical - NPO Status Verified Time NPO: 00:00 - Additional verifications Anesthesia Reactions: No Hx Blood Transfusions: No Blood Transfusion Reaction: No - Airway Assessment C-Spine Mobility Assessed: Yes (mp2) TMJ Mobility Assessed: Yes Dentition: Good Dentition - Neurological Assessment Level of Consciousness: Awake, Alert - Anesthesia Plan Anesthesia Risk discussed: Yes Anesthesia Plan: Verified ASA Class: III Anesthesia Type: General [facility] History I have reviewed the patient's past medical history: Yes Medical History: Reports:: Asthma, Cancer (bladder), Gastroesophageal Reflux Disease(GERD), Hypertension, Migraine Denies:: Diabetes Mellitus Type 1, Diabetes Mellitus Type 2, Internal Pacemaker, MRSA, Seizures *Have you ever received a pneumonia vaccine?: Yes *Have you received a flu vaccine this season?: Yes Other Medical History: Reports: Arthritis, Hypothyroidism, Thyroid Disease, Other. Denies: Blood Transfusion Reaction Anesthesia experience/problems:: nac Laterality Cases: Left: Arthroscopy Knee, Bilateral: Myringotomy (Ear Tubes) Other Surgeries: Yes: Appendectomy, Cancer Surgery, Cardiac Catheterization, Cholecystectomy, Colonoscopy, Hysterectomy-Partial, Sinus Surgery, Tubal Ligation, Other (bladder stimulator implant). No: Pacemaker Amputation: No Fractures: No - *Social History Last grade of school completed: High school graduate Smoking Status: Never smoker Tobacco Type: cigarettes # Packs/Day (cigarettes): 1 #Yrs smoked (if former smoker): 14 Alcohol Intake: never Alcohol Intake Frequency:: other Substance Use Type: denies use *Occupational Status:: unemployed Housing: house Household Members: none *Travel in the last 8 weeks: None Family Hx:: Asthma, Diabetes, Heart Attack, Hypertension
--- NOTE | 2021-04-18 08:48 | P.PN_ITS ---
[facility] Anesthesia Record Part I Intake, IV Amount: 400 Estimated blood loss (mL): 0 Urine output (mL): 0 Blood Pressure: 122/77 SaO2: 91 Pulse Rate: 91 Respiratory Rate: 16 Temperature: 97 F Patient is:: Drowsy, Stable Stable to PACU at:: 08:40
--- NOTE | 2021-04-18 08:58 | P.OP_ITS ---
Date of procedure: 04/18/21 Pre-op Diagnosis:: 1. Impacted tube right ear 2. Right serous otitis media Post-op Diagnosis:: Same Procedure performed:: 1. Removal of impacted cerumen and ear tube right ear 2. Placement of right myringotomy tube Surgeon:: Jose Duckworth MD TOBACCO GRADER:: Wilbert Carter Anesthesia: GETA Estimated blood loss (mL): 0 Operative findings:: Same Operative note:: Using the operating microscope for all the procedure, the right ear was prepped and draped. A previously placed right ear tube was completely surrounded by cerumen it had extruded, it was removed along with all of the cerumen. An incision was made in the tympanic membrane and serous fluid was aspirated and a Triune T-tube was placed, Ciprodex drops were applied and the patient was sent to recovery in good general condition. Condition: stable Disposition: PACU Complications:: none
--- NOTE | 2021-04-22 08:41 | P.PN_ITS ---
[facility] Anesthesia Record Part II Discharge Time: 09:10 Destination: Surgical Day Care (OP Surgery) PACU nurse assessment reviewed?: Yes Patient Condition:: Good Anesthesia Complications:: None Swallowing reflex intact?: Yes Cyanosis?: No Blood Pressure: 123/82 Pulse Rate: 71 Temperature: 97 F Mental Status: Alert & Oriented Pain level:: 0 Nausea and/or vomitting:: None Intake, IV Amount: 0
[2021-04-22 08:42] VITALS: BP 123/82; PULSE 71; TEMP 36.1
== END 2021-04-18 09:50 | disposition home or self-care (01) ==
LOC: OR 07:02
PROVIDERS: PCP Nurse Practitioner Family; Visit Provider Otolaryngology
PROC: (CPT 69436; principal; 2021-04-18 08:15)
DX: H65.91 Unspecified nonsuppurative otitis media, right ear (principal); H61.21 Impacted cerumen, right ear; J45.909 Unspecified asthma, uncomplicated; K21.9 Gastro-esophageal reflux disease without esophagitis; I10 Essential (primary) hypertension; G43.909 Migraine, unspecified, not intractable, without status migrainosus; Z85.51 Personal history of malignant neoplasm of bladder; M19.90 Unspecified osteoarthritis, unspecified site; E03.9 Hypothyroidism, unspecified; Z90.49 Acquired absence of other specified parts of digestive tract; Z83.3 Family history of diabetes mellitus; Z82.3 Family history of stroke
CPT/HCPCS: 69436; J2405

== ENCOUNTER → 2021-04-24 13:58 | Outpatient (CLI) | payer BC, SELFPAY ==
--- NOTE | 2021-04-24 13:58 | US_ITS ---
PROCEDURE: US THYROID CLINICAL INDICATION: nodule COMPARISON: US US THYROID from 11/15/2020 FINDINGS: Right lobe: 3.2 x 0.9 x 1.4 cm. Ill-defined 6 x 3 mm hypoechoic nodules present along lower pole previously 7 x 3 mm. Additionally in the lower pole there is a 4 x 2 mm hypoechoic oval-shaped nodule and a 1 x 0.5 cm oval-shaped slightly hypoechoic nodule. Both are unchanged.. The larger of these nodules could represent parathyroid gland. Left lobe: 2.9 x 1.0 x 1.1 cm. Homogeneous echogenicity. No discrete nodule. Isthmus: Unremarkable Additional findings: IMPRESSION: Overall no change in the small nodules of the right lobe of the thyroid gland as described above. Dictated by: Amado Lugo MD 04/24/2021 16:21 Amado Lugo MD in [place] 04/24/2021 16:21
== END ==
PROVIDERS: PCP Nurse Practitioner Family; Visit Provider Otolaryngology
DX: E03.9 Hypothyroidism, unspecified (principal)
CPT/HCPCS: 76536

== ENCOUNTER → 2021-05-07 09:40 | Outpatient (CLI) | payer BC, SELFPAY ==
--- NOTE | 2021-05-07 09:45 | XR_ITS ---
PROCEDURE: XR KNEE RT 4V CLINICAL INDICATION: right knee pain COMPARISON: CR XR KNEE RT 4V from 12/27/2019 CR XR KNEE LT 4V from 12/27/2019 CR XR KNEE LT 4V from 11/06/2020 CR XR KNEE LT 4V from 12/20/2020 FINDINGS: No fracture or dislocation. No lytic or blastic change. There is normal mineralization. [id number] tricompartmental osteoarthritic changes are once again noted overall not significantly changed. Other findings:None. IMPRESSION: No change [id number] osteoarthritis Dictated by: Amado Lugo MD 05/07/2021 11:38 Amado Lugo MD in [place] 05/07/2021 11:38
== END ==
PROVIDERS: PCP Nurse Practitioner Family; Visit Provider Orthopaedic Surgery
DX: M25.561 Pain in right knee (principal)
CPT/HCPCS: 73564

== ENCOUNTER → 2021-05-16 19:35 | Outpatient (CLI) | payer BC, SELFPAY ==
[2021-05-16 19:55] LABS: Basophils # 0.1 K/mm3 (0-0.2); Basophils % 0.9 % (0.1-2.0); Eosinophils # 0.2 K/mm3 (0.0-0.4); Hematocrit 44.2 % (37.0-47.0); Hemoglobin 14.9 g/dL (12.2-16.2); Lymphocytes # 2.9 K/mm3 (0.7-4.5); Lymphocytes % 27.4 % (10-50); Mean Corpuscular HGB Conc 33.6 g/dL (31.8-35.4); Mean Corpuscular Hemoglobin 30.1 pg (27.0-31.2); Mean Corpuscular Volume 89.5 fl (81-99); Mean Platelet Volume 9.2 fl (7.4-10.4); Monocytes # 0.5 K/mm3 (0.1-1.0); Monocytes % 5.2 % (1.7-9.3); Neutrophils # 6.7 K/mm3 (1.8-7.8); Neutrophils % 64.5 % (37.0-80.0); Platelet Count 256 K/mm3 (142-424); Red Blood Count 4.94 M/mm3 (4.20-5.40); Red Cell Distribution Width 14.2 % (11.5-17.5); White Blood Count 10.5 K/mm3 (4.8-10.8)
[2021-05-16 20:01] LABS: Chloride 102 mmol/L (98-107); Sodium 140 mmol/L (136-145)
[2021-05-16 20:04] LABS: Alanine Aminotransferase 21 U/L (12-78); Alkaline Phosphatase 104 U/L (38-126); Aspartate Amino Transferase 24 U/L (14-36); Bilirubin,Total 0.5 mg/dl (0.2-1.3); Blood Urea Nitrogen 19 mg/dl (7-17); Carbon Dioxide 27 mmol/L (22.0-30.0); Estimated Glomerular Filt Rate 60 ml/min (>60); GFR (African American) 72 ML/MIN (>60)
[2021-05-16 20:05] LABS: Albumin Level 4.6 g/dl (3.5-5.0); Albumin/Globulin Ratio 1.6 (1.1-1.8); Calcium 9.4 mg/dl (8.4-10.2); Globulin 2.8 g/dL (1.3-3.2); Glucose 89 mg/dl (74-100); Total Protein,Serum 7.4 g/dl (6.3-8.2)
[2021-05-16 20:34] LABS: Thyroid Stimulating Hormone 2.28 uIU/mL (0.465-4.68)
== END ==
PROVIDERS: Visit Provider Nurse Practitioner Family
DX: R53.83 Other fatigue (principal)
CPT/HCPCS: 80053; 84436; 84443; 85025

== ENCOUNTER → 2021-06-19 17:34 | Outpatient (CLI) | payer BC, SELFPAY | PROVIDERS: Visit Provider Physician Assistant | DX: T14.8XXA Other injury of unspecified body region, initial encounter (principal); N61.1 Abscess of the breast and nipple | CPT/HCPCS: 87070; 87077; 87186; 87205 ==

== ENCOUNTER 2021-06-23 12:32 | Emergency (ER) | payer BC, SELFPAY ==
[2021-06-23 12:33] VITALS: BP 148/95; PULSE 85; RESP 16; TEMP 36.6; O2SAT 98; BMI 47.2; BMI 47.7
--- NOTE | 2021-06-23 13:41 | XR_ITS ---
PROCEDURE INFORMATION: Exam: XR Right Wrist Exam date and time: 06/23/2021 1:41 PM Age: 46 years old Clinical indication: Injury or trauma; Fall; Blunt trauma (contusions or hematomas); Wrist; Right TECHNIQUE: Imaging protocol: XR Right wrist. Views: 3 or more views. COMPARISON: CR WRR3 WRIST-3 VIEWS-RT 03/20/2015 1:03 PM FINDINGS: Bones/joints: No acute bony injury or malalignment in the visualized right wrist. Contour irregularity about the distal ulna, suggesting remote trauma. Lunatotriquetral coalition again demonstrated. Mild degenerative change. Soft tissues: No radiopaque foreign body. IMPRESSION: No acute bony injury or malalignment in the visualized right wrist.
--- NOTE | 2021-06-23 16:06 | HMH.EDGENADL ---
ED Disposition Clinical Impression: Contusion of right wrist Qualifiers: Encounter type: initial encounter Qualified Code(s): S60.211A - Contusion of right wrist, initial encounter Facial contusion Qualifiers: Encounter type: initial encounter Qualified Code(s): S00.83XA - Contusion of other part of head, initial encounter Cervical strain Qualifiers: Encounter type: initial encounter Qualified Code(s): S16.1XXA - Strain of muscle, fascia and tendon at neck level, initial encounter Posttraumatic headache Qualifiers: Headache chronicity pattern: acute headache Intractability: not intractable Qualified Code(s): G44.319 - Acute post-traumatic headache, not intractable Disposition: Home, Self-Care Condition on Discharge: Good Instructions: DI for Closed Head Injury, DI for Contusion Additional Instructions: Wear wrist brace for 1 week. Ice and elevate to reduce pain and swelling. Tylenol or ibuprofen for pain. Follow-up with primary care provider if not improved in 4 to 5 days. Referrals: Darien Hoyt APRN [Primary Care Provider] - - Critical Care Critical Care Time: No Attestation: On 06/23/21, the high probability of a clinically significant, sudden or life threatening deterioration of the following system(s) required my full and direct attention, intervention and personal management. The time I documented below is in addition to time spent performing reported procedures but includes the following listed in this critical care notation. Medical Decision Making - Ab Inquiry Pt receiving controlled substance: No Vital Signs: 06/23/21 12:33 Temperature 98 F Temperature Source Oral Pulse Rate [Posterior Tibial] 85 Respiratory Rate 16 Blood Pressure [Right Arm] 148/95 H Blood Pressure Mean [Right Arm] 112 Blood Pressure Position [Right Arm] Sitting 02 Sat by Pulse Oximetry 98 Oxygen Delivery Method Room Air - Radiology Data #1 Image(s): Wrist Image Reviewed: Yes I reviewed the patient's radiology image, Yes I have reviewed radiologist's interpretation PROCEDURE INFORMATION: Exam: XR Right Wrist Exam date and time: 06/23/2021 1:41 PM Age: 46 years old Clinical indication: Injury or trauma; Fall; Blunt trauma (contusions or hematomas); Wrist; Right TECHNIQUE: Imaging protocol: XR Right wrist. Views: 3 or more views. COMPARISON: CR WRR3 WRIST-3 VIEWS-RT 03/20/2015 1:03 PM FINDINGS: Bones/joints: No acute bony injury or malalignment in the visualized right wrist. Contour irregularity about the distal ulna, suggesting remote trauma. Lunatotriquetral coalition again demonstrated. Mild degenerative change. Soft tissues: No radiopaque foreign body. IMPRESSION: No acute bony injury or malalignment in the visualized right wrist. - CT Data CT Scan: Head, C-Spine, Other (facial) Time Received: 17:[address] Reviewed: Yes: I have viewed the radiologist's interpretation Findings Narrative: PROCEDURE INFORMATION: Exam: CT Head Without Contrast Exam date and time: 06/23/2021 4:13 PM Age: 46 years old Clinical indication: Injury or trauma; Fall TECHNIQUE: Imaging protocol: Computed tomography of the head without contrast. Radiation optimization: All CT scans at this facility use at least one of these dose optimization techniques: automated exposure control; mA and/or kV adjustment per patient size (includes targeted exams where dose is matched to clinical indication); or iterative reconstruction. COMPARISON: CT HEAD/BRAIN WO CON 04/12/2020 2:12 PM FINDINGS: Brain: Normal. No hemorrhage. Unremarkable white matter. No mass effect. Cerebral ventricles: No ventriculomegaly. Paranasal sinuses: Visualized sinuses are unremarkable. No fluid levels. Mastoid air cells: Visualized mastoid air cells are well aerated. Bones/joints: Unremarkable. No acute fracture. Soft t
--- NOTE | 2021-06-23 16:13 | CT_ITS ---
PROCEDURE INFORMATION: Exam: CT Maxillofacial Without Contrast Exam date and time: 06/23/2021 4:13 PM Age: 46 years old Clinical indication: Injury or trauma; Fall TECHNIQUE: Imaging protocol: Computed tomography images of the face without contrast. Radiation optimization: All CT scans at this facility use at least one of these dose optimization techniques: automated exposure control; mA and/or kV adjustment per patient size (includes targeted exams where dose is matched to clinical indication); or iterative reconstruction. COMPARISON: CT SINUS WO CON 12/15/2019 1:26 PM FINDINGS: Orbital cavity: Orbits are normal. Globes are unremarkable. Bones/joints: No acute fracture. Paranasal sinuses: Normal. No air-fluid levels. Soft tissues: Unremarkable. IMPRESSION: No acute findings.
--- NOTE | 2021-06-23 16:13 | CT_ITS ---
PROCEDURE INFORMATION: Exam: CT Head Without Contrast Exam date and time: 06/23/2021 4:13 PM Age: 46 years old Clinical indication: Injury or trauma; Fall TECHNIQUE: Imaging protocol: Computed tomography of the head without contrast. Radiation optimization: All CT scans at this facility use at least one of these dose optimization techniques: automated exposure control; mA and/or kV adjustment per patient size (includes targeted exams where dose is matched to clinical indication); or iterative reconstruction. COMPARISON: CT HEAD/BRAIN WO CON 04/12/2020 2:12 PM FINDINGS: Brain: Normal. No hemorrhage. Unremarkable white matter. No mass effect. Cerebral ventricles: No ventriculomegaly. Paranasal sinuses: Visualized sinuses are unremarkable. No fluid levels. Mastoid air cells: Visualized mastoid air cells are well aerated. Bones/joints: Unremarkable. No acute fracture. Soft tissues: Unremarkable. IMPRESSION: No acute intracranial abnormality.
--- NOTE | 2021-06-23 16:13 | CT_ITS ---
PROCEDURE INFORMATION: Exam: CT Cervical Spine Without Contrast Exam date and time: 06/23/2021 4:13 PM Age: 46 years old Clinical indication: Injury or trauma; Fall TECHNIQUE: Imaging protocol: Computed tomography images of the cervical spine without contrast. Radiation optimization: All CT scans at this facility use at least one of these dose optimization techniques: automated exposure control; mA and/or kV adjustment per patient size (includes targeted exams where dose is matched to clinical indication); or iterative reconstruction. COMPARISON: CT HEAD/BRAIN WO CON 04/12/2020 2:12 PM FINDINGS: Bones/joints: No acute fracture. Normal alignment. Discs/Spinal canal/Neural foramina: No significant disc protrusion. No severe spinal canal stenosis. No significant neural foraminal narrowing. Lungs: Lung apices are normal. Soft tissues: Unremarkable. IMPRESSION: No acute findings.
[2021-06-23 18:17] VITALS: BP 111/68; PULSE 78; RESP 16; TEMP 36.6; O2SAT 98
== END 2021-06-23 18:20 | disposition home or self-care (01) ==
PROVIDERS: Emergency Provider Emergency Medicine; PCP Nurse Practitioner Family
DX: S60.211A Contusion of right wrist, initial encounter (principal); S00.83XA Contusion of other part of head, initial encounter; S16.1XXA Strain of muscle, fascia and tendon at neck level, initial encounter; G44.319 Acute post-traumatic headache, not intractable; W18.39XA Other fall on same level, initial encounter; Y92.019 Unspecified place in single-family (private) house as the place of occurrence of the external cause; K21.9 Gastro-esophageal reflux disease without esophagitis; I10 Essential (primary) hypertension; J45.909 Unspecified asthma, uncomplicated; Z79.899 Other long term (current) drug therapy
CPT/HCPCS: 29125; 70450; 70486; 72125; 73110; 99282

== ENCOUNTER → 2021-08-19 14:00 | Outpatient (CLI) | payer BC, SELFPAY ==
--- NOTE | 2021-08-19 14:05 | US_ITS ---
PROCEDURE: US KIDNEY CLINICAL INDICATION: BLADDER PAIN COMPARISON: CT CT ABDOMEN PELVIS WO CON from 07/24/2020 FINDINGS: The right kidney measures 9.1 x 4.3 centimeters and exhibits normal cortical echogenicity and normal vascularity. There is no hydronephrosis. The left kidney measures 8.8 x 4.7 centimeters and exhibits normal cortical echogenicity and vascularity, with no hydronephrosis. There is increased hepatic echogenicity consistent with hepatic steatosis. Visualized extent of the spleen appears unremarkable. IMPRESSION: 1. No sonographic evidence of medical renal disease. 2. Hepatosteatosis. Dictated by: Linda Jones MD 08/21/2021 10:39 Linda Jones MD in [place] 08/21/2021 10:39
== END ==
PROVIDERS: PCP Nurse Practitioner Family; Visit Provider Nurse Practitioner Family
DX: R39.89 Other symptoms and signs involving the genitourinary system (principal)
CPT/HCPCS: 76770

== ENCOUNTER → 2021-09-11 19:45 | Outpatient (CLI) | payer BC, SELFPAY ==
[2021-09-11 19:55] LABS: Basophils # 0.1 K/mm3 (0-0.2); Basophils % 1.2 % (0.1-2.0); Eosinophils # 0.2 K/mm3 (0.0-0.4); Eosinophils % 2.6 % (0.1-12.0); Hematocrit 43.3 % (37.0-47.0); Hemoglobin 14.2 g/dL (12.2-16.2); Lymphocytes # 1.9 K/mm3 (0.7-4.5); Lymphocytes % 22.9 % (10-50); Mean Corpuscular HGB Conc 32.8 g/dL (31.8-35.4); Mean Corpuscular Hemoglobin 30.8 pg (27.0-31.2); Mean Corpuscular Volume 93.9 fl (81-99); Mean Platelet Volume 9.7 fl (7.4-10.4); Monocytes # 0.4 K/mm3 (0.1-1.0); Monocytes % 4.7 % (1.7-9.3); Neutrophils # 5.6 K/mm3 (1.8-7.8); Neutrophils % 68.7 % (37.0-80.0); Platelet Count 257 K/mm3 (142-424); Red Blood Count 4.61 M/mm3 (4.20-5.40); Red Cell Distribution Width 14.1 % (11.5-17.5); White Blood Count 8.2 K/mm3 (4.8-10.8)
[2021-09-11 20:07] LABS: Alanine Aminotransferase 19 U/L (12-78); Albumin/Globulin Ratio 1.5 (1.1-1.8); Alkaline Phosphatase 85 U/L (38-126); Anion Gap 9.7 mEq/L (5-15); Aspartate Amino Transferase 21 U/L (14-36); Bilirubin,Total 0.3 mg/dl (0.2-1.3); Blood Urea Nitrogen 16 mg/dl (7-17); Carbon Dioxide 26 mmol/L (22.0-30.0); Chloride 107 mmol/L (98-107); Chol/HDL Ratio 3.9 (1-3.5); Cholesterol 178 mg/dl (140-200); Estimated Glomerular Filt Rate 77 ml/min (>60); GFR (African American) 93 ML/MIN (>60); Globulin 2.7 g/dL (1.3-3.2); Glucose 104 mg/dl (74-100); HDL Cholesterol 46 mg/dl (40-60); Potassium 4.7 mmoL/L (3.5-5.1); Sodium 138 mmol/L (136-145); Total Protein,Serum 6.7 g/dl (6.3-8.2); Triglycerides 95 mg/dl (30-150); VLDL Cholesterol 19 mg/dL (0-40)
[2021-09-11 20:18] LABS: Direct LDL Cholesterol 130.71 mg/dL (100-129)
[2021-09-11 20:25] LABS: Free Thyroxine Index 2.9 ug/dL (5.93-13.13); T4 (Thyroxine) 8.3 ug/dl (5.53-11.0); Triiodothryronine (T3) Uptake 35 % (23.5-40.5)
[2021-09-11 23:23] LABS: Hemoglobin A1C 5.1 % (4.0-6.0)
[2021-09-12 16:27] LABS: 25-OH Vitamin D, Total 30.7 ng/mL (30-100)
== END ==
PROVIDERS: Visit Provider Nurse Practitioner Family
DX: I10 Essential (primary) hypertension (principal); R53.83 Other fatigue; E55.9 Vitamin D deficiency, unspecified; E66.01 Morbid (severe) obesity due to excess calories; Z68.42 Body mass index [BMI] 45.0-49.9, adult; Z79.899 Other long term (current) drug therapy
CPT/HCPCS: 80053; 80061; 82306; 83036; 84436; 84443; 84479; 85025

== ENCOUNTER → 2021-11-13 08:28 | Outpatient (CLI) | payer BC, SELFPAY ==
--- NOTE | 2021-11-13 08:35 | XR_ITS ---
FINAL REPORT CLINICAL HISTORY: right knee pain COMPARISON: May 07, 2021 FINDINGS: RIGHT KNEE Four views of the right knee were obtained. There is no acute fracture or dislocation. Visualized joint spaces are normally aligned. There are mild degenerative changes. Soft tissues are unremarkable. IMPRESSION: Degenerative change with no acute bony abnormality. Reviewed, Interpreted and Dictated by Juan Luis De La Cruz III, MD Transcribed by Tsaia Hathaway Authenticated by Juan Luis De La Cruz III, MD on 11/13/2021 11:05:42 AM [facility]
== END ==
PROVIDERS: PCP Nurse Practitioner Family; Visit Provider Orthopaedic Surgery
DX: M25.561 Pain in right knee (principal)
CPT/HCPCS: 73564

== ENCOUNTER → 2021-11-15 17:14 | Outpatient (CLI) | payer BC, SELFPAY ==
[2021-11-15 18:52] LABS: Basophils # 0.1 K/mm3 (0-0.2); Basophils % 1.5 % (0.1-2.0); Eosinophils # 0.2 K/mm3 (0.0-0.4); Eosinophils % 2.3 % (0.1-12.0); Hematocrit 43.7 % (37.0-47.0); Hemoglobin 13.9 g/dL (12.2-16.2); Lymphocytes % 20.8 % (10-50); Mean Corpuscular HGB Conc 31.8 g/dL (31.8-35.4); Mean Corpuscular Hemoglobin 30.3 pg (27.0-31.2); Mean Corpuscular Volume 95.1 fl (81-99); Mean Platelet Volume 9.1 fl (7.4-10.4); Monocytes # 0.4 K/mm3 (0.1-1.0); Monocytes % 4.2 % (1.7-9.3); Neutrophils % 71.3 % (37.0-80.0); Platelet Count 256 K/mm3 (142-424); Red Cell Distribution Width 14.1 % (11.5-17.5); White Blood Count 9.8 K/mm3 (4.8-10.8)
[2021-11-15 18:55] LABS: Alanine Aminotransferase 20 U/L (12-78); Albumin/Globulin Ratio 1.5 (1.1-1.8); Alkaline Phosphatase 82 U/L (38-126); Anion Gap 10.7 mEq/L (5-15); Aspartate Amino Transferase 20 U/L (14-36); Bilirubin,Total 0.6 mg/dl (0.2-1.3); Blood Urea Nitrogen 14 mg/dl (7-17); Calcium 9.2 mg/dl (8.4-10.2); Carbon Dioxide 27 mmol/L (22.0-30.0); Chloride 103 mmol/L (98-107); Chol/HDL Ratio 3.6 (1-3.5); Cholesterol 182 mg/dl (140-200); Estimated Glomerular Filt Rate 77 ml/min (>60); GFR (African American) 93 ML/MIN (>60); Globulin 2.7 g/dL (1.3-3.2); Glucose 87 mg/dl (74-100); HDL Cholesterol 50 mg/dl (40-60); Potassium 4.7 mmoL/L (3.5-5.1); Sodium 136 mmol/L (136-145); Total Protein,Serum 6.7 g/dl (6.3-8.2); Triglycerides 112 mg/dl (30-150); VLDL Cholesterol 22 mg/dL (0-40)
[2021-11-15 19:05] LABS: Hemoglobin A1C 5.1 % (4.0-6.0)
[2021-11-15 19:06] LABS: Direct LDL Cholesterol 124.13 mg/dL (100-129)
[2021-11-15 19:12] LABS: 25-OH Vitamin D, Total 16.2 ng/mL (30-100); T4 (Thyroxine) 8.8 ug/dl (5.53-11.0)
[2021-11-15 19:25] LABS: Thyroid Stimulating Hormone 1.26 uIU/mL (0.465-4.68)
[2021-11-18 13:15] LABS: C-Peptide 3.9 ng/mL (1.1-4.4)
== END ==
PROVIDERS: Visit Provider Nurse Practitioner Family
DX: E03.9 Hypothyroidism, unspecified (principal); E55.9 Vitamin D deficiency, unspecified; Z79.899 Other long term (current) drug therapy
CPT/HCPCS: 80053; 80061; 82306; 83036; 84436; 84443; 84681; 85025

== ENCOUNTER → 2021-11-26 15:07 | Outpatient (CLI) | payer BC, SELFPAY ==
[2021-11-26 16:47] LABS: Thyroid Stimulating Hormone 3.32 uIU/mL (0.465-4.68)
== END ==
PROVIDERS: PCP Nurse Practitioner Family; Visit Provider Otolaryngology
DX: E03.9 Hypothyroidism, unspecified (principal)
CPT/HCPCS: 36415; 84443

== ENCOUNTER → 2021-12-03 09:20 | Outpatient (CLI) | payer BC, SELFPAY | PROVIDERS: PCP Nurse Practitioner Family; Visit Provider Surgery | DX: Z01.812 Encounter for preprocedural laboratory examination (principal); Z11.52 Encounter for screening for COVID-19; D48.5 Neoplasm of uncertain behavior of skin | CPT/HCPCS: C9803; U0003; U0005 ==

== ENCOUNTER 2021-12-05 07:16 | Day surgery (SDC) | payer BC, SELFPAY ==
[2021-12-03 14:15] VITALS: BMI 48.5
[2021-12-05 07:31] VITALS: BP 147/73; PULSE 71; RESP 18; TEMP 36.3; O2SAT 99
--- NOTE | 2021-12-05 07:58 | HMH.OPNOTE ---
Date of procedure: 12/05/21 Pre-op Diagnosis:: Skin neoplasm of uncertain behavior along mid back (1 cm) Post-op Diagnosis:: Same Procedure performed:: Excision of 1 cm skin lesion from mid back Surgeon:: Lopez Anne MD Anesthesia: local Estimated blood loss (mL): 5 Operative findings:: Lesion excised with 1 mm margin Operative note:: After informed consent was obtained the patient was taken to the procedure room. She was maintained in a seated position. Her mid back was prepped and draped in a sterile fashion. After infiltration local anesthetic an elliptical incision was made around the skin lesion. A 1 mm margin was obtained. The deep subcutaneous tissue was sharply dissected. The lesion was excised in toto and passed off for pathologic evaluation. Electrocautery was utilized to achieve hemostasis. Skin was reapproximated with interrupted 4-0 nylon. Dressings were applied and patient was discharged in stable condition. Condition: stable Disposition: no change Specimens:: Mid back skin lesion Complications:: No immediate
[2021-12-05 08:10] VITALS: BP 147/96; PULSE 67; RESP 18; TEMP 36.1; O2SAT 97
[2021-12-05 08:30] VITALS: BP 147/96; PULSE 67; RESP 18; TEMP 36.1; O2SAT 97
== END 2021-12-05 08:10 | disposition home or self-care (01) ==
LOC: OUTP 07:17
PROVIDERS: PCP Nurse Practitioner Family; Visit Provider Surgery
PROC: (CPT 11401; principal; 2021-12-05 07:30)
DX: D23.5 Other benign neoplasm of skin of trunk (principal); Z85.9 Personal history of malignant neoplasm, unspecified; J45.909 Unspecified asthma, uncomplicated; E11.9 Type 2 diabetes mellitus without complications; K21.9 Gastro-esophageal reflux disease without esophagitis; I10 Essential (primary) hypertension; G43.909 Migraine, unspecified, not intractable, without status migrainosus; M19.90 Unspecified osteoarthritis, unspecified site; E03.9 Hypothyroidism, unspecified; Z87.891 Personal history of nicotine dependence; Z83.3 Family history of diabetes mellitus; Z82.49 Family history of ischemic heart disease and other diseases of the circulatory system
CPT/HCPCS: 11401

== ENCOUNTER → 2022-01-22 09:36 | Outpatient (CLI) | payer BC, SELFPAY ==
--- NOTE | 2022-01-22 09:37 | IR_ITS ---
FINAL REPORT CLINICAL HISTORY: knee pain fluoro time 1.55 FINDINGS: RIGHT KNEE ARTHROGRAM HISTORY: Right knee pain, possible arthritis. ATTENDING PHYSICIAN: Dr. De La Cruz PHYSICIAN MANAGER OF FINANCIAL REPORTING: Louise De La Torre PA-C PROCEDURE: Informed consent was obtained from the patient. A time out procedure was performed prior to beginning the procedure. Patient was placed supine on the fluoroscopy table. Fluoroscopy was utilized to localize the right knee joint space. Skin was marked appropriately. The patient was prepped and draped in the usual sterile fashion over the right knee. Skin was anesthetized with 1% Lidocaine. Attempt was made to access the joint space from a lateral approach, but was unsuccessful. Subsequently, a medial approach was attempted. Access to the joint space was obtained using a 3 and 1/2 spinal needle. A small amount of Isovue contrast was injected to confirm needle placement. This was confirmed. Subsequently, approximately 20 mL of dilute Isovue were injected into the joint space. Patient tolerated the procedure well and left the department in good condition. 3 images were saved. Fluoroscopy time: 1 minute, 55 seconds IMPRESSION: Technically successful right knee injection for CT arthrogram. Please see CT report. Reviewed, Interpreted and Dictated by Juan Luis De La Cruz III, MD Transcribed by Louise De La Torre PA-C Authenticated by Juan Luis De La Cruz III, MD on 01/22/2022 01:50:11 PM [facility]
--- NOTE | 2022-01-22 10:09 | CT_ITS ---
FINAL REPORT TECHNIQUE: After the injection of intra-articular contrast, axial images through the right knee were obtained by computed tomography. Sagittal and coronal reformatted images were obtained. This study was performed with techniques to keep radiation doses as low as reasonably achievable (ALARA). Individualized dose reduction techniques using automated exposure control or adjustment of mA and/or kV according to the patient's size were employed. CLINICAL HISTORY: s/p right knee arthrogram pt is having right knee pain FINDINGS: No fracture is identified. There are moderate degenerative changes. No meniscal tear is seen. There is moderate chondromalacia, worst involving the patella. There is mild lateral patellar subluxation. The musculature is intact. IMPRESSION: Moderate chondromalacia, worse involving the patella with mild lateral patellar subluxation. Reviewed, Interpreted and Dictated by Juan Luis De La Cruz III, MD Transcribed by Adilia Ozuna Authenticated by Juan Luis De La Cruz III, MD on 01/22/2022 12:26:06 PM [facility]
== END ==
PROVIDERS: PCP Nurse Practitioner Family; Visit Provider Orthopaedic Surgery
DX: S89.91XA Unspecified injury of right lower leg, initial encounter (principal); M25.561 Pain in right knee
CPT/HCPCS: 73580; 73700; Q9967

== ENCOUNTER → 2022-02-17 08:45 | Outpatient (CLI) | payer BC, SELFPAY ==
[2022-02-17 20:23] LABS: Basophils # 0.1 K/mm3 (0-0.2); Basophils % 1.1 % (0.1-2.0); Eosinophils # 0.2 K/mm3 (0.0-0.4); Eosinophils % 2.5 % (0.1-12.0); Hematocrit 43.2 % (37.0-47.0); Hemoglobin 14.3 g/dL (12.2-16.2); Lymphocytes # 2.3 K/mm3 (0.7-4.5); Lymphocytes % 23.1 % (10-50); Mean Corpuscular HGB Conc 33.2 g/dL (31.8-35.4); Mean Corpuscular Hemoglobin 31.7 pg (27.0-31.2); Mean Corpuscular Volume 95.5 fl (81-99); Mean Platelet Volume 9.8 fl (7.4-10.4); Monocytes # 0.5 K/mm3 (0.1-1.0); Monocytes % 5.5 % (1.7-9.3); Neutrophils # 6.7 K/mm3 (1.8-7.8); Neutrophils % 67.9 % (37.0-80.0); Platelet Count 314 K/mm3 (142-424); Red Blood Count 4.52 M/mm3 (4.20-5.40); Red Cell Distribution Width 14.1 % (11.5-17.5); White Blood Count 9.8 K/mm3 (4.8-10.8)
[2022-02-17 20:53] LABS: Alanine Aminotransferase 25 U/L (12-78); Albumin Level 3.9 g/dl (3.5-5.0); Albumin/Globulin Ratio 1.5 (1.1-1.8); Alkaline Phosphatase 73 U/L (38-126); Anion Gap 12.5 mEq/L (5-15); Aspartate Amino Transferase 22 U/L (14-36); Bilirubin,Total 0.4 mg/dl (0.2-1.3); Blood Urea Nitrogen 20 mg/dl (7-17); Calcium 8.7 mg/dl (8.4-10.2); Carbon Dioxide 25 mmol/L (22.0-30.0); Chloride 105 mmol/L (98-107); Chol/HDL Ratio 3.6 (1-3.5); Cholesterol 165 mg/dl (140-200); Estimated Glomerular Filt Rate 48 ml/min (>60); GFR (African American) 59 ML/MIN (>60); Globulin 2.6 g/dL (1.3-3.2); Glucose 101 mg/dl (74-100); HDL Cholesterol 46 mg/dl (40-60); Potassium 4.5 mmoL/L (3.5-5.1); Sodium 138 mmol/L (136-145); Total Protein,Serum 6.5 g/dl (6.3-8.2); Triglycerides 113 mg/dl (30-150); VLDL Cholesterol 23 mg/dL (0-40)
[2022-02-17 21:07] LABS: Direct LDL Cholesterol 93.11 mg/dL (100-129)
[2022-02-17 21:10] LABS: T4 (Thyroxine) 10.7 ug/dl (5.53-11.0)
[2022-02-17 21:11] LABS: 25-OH Vitamin D, Total 22.6 ng/mL (30-100)
[2022-02-17 21:24] LABS: Thyroid Stimulating Hormone 0.51 uIU/mL (0.465-4.68)
== END ==
PROVIDERS: PCP Nurse Practitioner Family; Visit Provider Nurse Practitioner Family
DX: I10 Essential (primary) hypertension (principal); E78.5 Hyperlipidemia, unspecified; E03.8 Other specified hypothyroidism; E55.9 Vitamin D deficiency, unspecified; R53.83 Other fatigue; Z09 Encounter for follow-up examination after completed treatment for conditions other than malignant neoplasm; Z79.899 Other long term (current) drug therapy
CPT/HCPCS: 80053; 80061; 82306; 84436; 84443; 85025

== ENCOUNTER → 2022-03-03 14:27 | Outpatient (CLI) | payer BC, SELFPAY ==
[2022-03-03 16:54] LABS: Basophils # 0.1 K/mm3 (0-0.2); Basophils % 1.4 % (0.1-2.0); Eosinophils # 0.2 K/mm3 (0.0-0.4); Eosinophils % 3.6 % (0.1-12.0); Hematocrit 42.2 % (37.0-47.0); Lymphocytes # 1.7 K/mm3 (0.7-4.5); Lymphocytes % 25.6 % (10-50); Mean Corpuscular HGB Conc 33.2 g/dL (31.8-35.4); Mean Corpuscular Hemoglobin 31.4 pg (27.0-31.2); Mean Corpuscular Volume 94.5 fl (81-99); Monocytes # 0.4 K/mm3 (0.1-1.0); Monocytes % 6.2 % (1.7-9.3); Neutrophils # 4.3 K/mm3 (1.8-7.8); Neutrophils % 63.1 % (37.0-80.0); Platelet Count 275 K/mm3 (142-424); Red Blood Count 4.46 M/mm3 (4.20-5.40); Red Cell Distribution Width 14.1 % (11.5-17.5); White Blood Count 6.8 K/mm3 (4.8-10.8)
[2022-03-03 17:23] LABS: Alanine Aminotransferase 24 U/L (12-78); Albumin Level 3.8 g/dl (3.5-5.0); Albumin/Globulin Ratio 1.5 (1.1-1.8); Alkaline Phosphatase 74 U/L (38-126); Anion Gap 9.8 mEq/L (5-15); Aspartate Amino Transferase 24 U/L (14-36); Bilirubin,Total 0.8 mg/dl (0.2-1.3); Blood Urea Nitrogen 22 mg/dl (7-17); Calcium 8.9 mg/dl (8.4-10.2); Carbon Dioxide 26 mmol/L (22.0-30.0); Chloride 105 mmol/L (98-107); Chol/HDL Ratio 4.3 (1-3.5); Cholesterol 183 mg/dl (140-200); Estimated Glomerular Filt Rate 53 ml/min (>60); GFR (African American) 65 ML/MIN (>60); Globulin 2.6 g/dL (1.3-3.2); Glucose 93 mg/dl (74-100); HDL Cholesterol 43 mg/dl (40-60); Potassium 4.8 mmoL/L (3.5-5.1); Sodium 136 mmol/L (136-145); Total Protein,Serum 6.4 g/dl (6.3-8.2); Triglycerides 138 mg/dl (30-150); VLDL Cholesterol 28 mg/dL (0-40)
[2022-03-03 17:35] LABS: Direct LDL Cholesterol 111.45 mg/dL (100-129)
[2022-03-03 17:41] LABS: Free Thyroxine Index 4.4 ug/dL (5.93-13.13); T4 (Thyroxine) 11.9 ug/dl (5.53-11.0); Triiodothryronine (T3) Uptake 37 % (23.5-40.5)
[2022-03-03 17:54] LABS: Thyroid Stimulating Hormone 0.29 uIU/mL (0.465-4.68)
== END ==
PROVIDERS: Visit Provider Nurse Practitioner Obstetrics & Gynecology
DX: Z01.419 Encounter for gynecological examination (general) (routine) without abnormal findings (principal)
CPT/HCPCS: 36415; 80053; 80061; 84436; 84443; 84479; 85025

== ENCOUNTER 2022-03-07 21:50 | Emergency (ER) | payer BC, SELFPAY ==
[2022-03-07 21:51] VITALS: BP 154/87; PULSE 113; RESP 16; TEMP 36.7; O2SAT 99; BMI 48.2
[2022-03-07 22:00] VITALS: BMI 48.2
[2022-03-07 22:04] LABS: Microscopic, Urine URINE MICROSCOPIC (MICROSCOPIC)
[2022-03-07 22:06] LABS: Appearance,Urine SL CLOUDY (Clear); Bilirubin,Urine Negative (Negative); Blood, Urine Negative (Negative); Color,Urine YELLOW (Yellow); Glucose,Urine (UA) Negative (Negative); Ketones,Urine TRACE (Negative); Leukocyte Esterase,Urine 1+ (Negative); Nitrate,Urine Negative (Negative); PH,Urine 6.5 (5.0-8.5); Protein,Urine Negative (Negative); Specific Gravity, Urine 1.015 (1.005-1.030)
[2022-03-07 22:14] LABS: Mucus,Urine 1+ /lpf
[2022-03-07 22:30] VITALS: BP 120/73; PULSE 105; O2SAT 96
[2022-03-07 23:15] VITALS: BP 117/98; PULSE 92; O2SAT 97
--- NOTE | 2022-03-07 23:24 | PC.NURSE ---
ER at bedside
[2022-03-07 23:30] VITALS: BP 121/79; PULSE 105; O2SAT 94
--- NOTE | 2022-03-08 01:29 | HMH.EDGENADL ---
ED Disposition Clinical Impression: Back pain Qualifiers: Back pain location: low back pain Chronicity: acute Back pain laterality: bilateral Sciatica presence: without sciatica Qualified Code(s): M54.50 - Low back pain, unspecified Disposition: Home, Self-Care Condition on Discharge: Good Instructions: DI for Low Back Pain Additional Instructions: Follow-up with your primary care physician for back pain seen in the emergency department and repeat creatinine consistent with your most recently trended value of 1.1. Please remain hydrated and please return to the emergency department with any new or worsening symptoms including worsening pain, weakness, fevers, fainting, decreased urine output or any other new or concerning symptoms. Referrals: Darien Hoyt APRN [Primary Care Provider] - - Critical Care Critical Care Time: No Attestation: On 03/07/22, the high probability of a clinically significant, sudden or life threatening deterioration of the following system(s) required my full and direct attention, intervention and personal management. The time I documented below is in addition to time spent performing reported procedures but includes the following listed in this critical care notation. Medical Decision Making - Ab Inquiry Pt receiving controlled substance: No Vital Signs: 03/07/22 21:51 03/07/22 22:30 03/07/22 23:15 Temperature 98.1 F Temperature Source Oral Pulse Rate 105 H 92 H Pulse Rate [Right] 113 H Respiratory Rate 16 Blood Pressure 120/73 117/98 H Blood Pressure [Right Arm] 154/87 H Blood Pressure Mean [Right Arm] 109 02 Sat by Pulse Oximetry 99 96 97 Oxygen Delivery Method Room Air Room Air 03/07/22 23:30 Temperature Temperature Source Pulse Rate 105 H Pulse Rate [Right] Respiratory Rate Blood Pressure 121/79 Blood Pressure [Right Arm] Blood Pressure Mean [Right Arm] 02 Sat by Pulse Oximetry 94 L Oxygen Delivery Method Room Air - Lab Data Lab Results 03/07/22 21:58: Urine Color Yellow, Urine Appearance Sl cloudy, Urine pH 6.5, Ur Specific [place] 1.015, Urine Protein Negative, Urine Glucose (UA) Negative, Urine Ketones Trace, Urine Blood Negative, Urine Nitrate Negative, Urine Bilirubin Negative, Urine Urobilinogen 1.0, Ur Leukocyte Esterase 1+ A, Urine WBC 5-10, Ur Squamous Epith Cells 10-20, Urine Mucus 1+ 03/08/22 01:31: WBC 8.7, RBC 4.56, Hgb 14.4, Hct 42.7, MCV 93.6, MCH 31.7 H, MCHC 33.8, RDW 14.0, Plt Count 291, MPV 8.6, Neut % (Auto) 66.9, Lymph % (Auto) 22.4, Howell % (Auto) 5.0, Eos % (Auto) 3.1, Baso % (Auto) 2.5 H, Neut # (Auto) 5.9, Lymph # (Auto) 2.0, Howell # (Auto) 0.4, Eos # (Auto) 0.3, Baso # (Auto) 0.2 03/08/22 01:31: Sodium 138, Potassium 4.5, Chloride 105, Carbon Dioxide 28, Anion Gap 9.5, BUN 21 H, Creatinine 1.10 H, Estimated Creat Clear 48, Estimated GFR 53 L, Est GFR ( Amer) 65, Glucose 116 H, Calcium 9.7, Total Bilirubin 0.4, AST 27, ALT 27, Alkaline Phosphatase 80, Total Protein 7.2, Albumin 4.1, Globulin 3.1, Albumin/Globulin Ratio 1.3 Result diagrams: 03/08/22 01:31 03/08/22 01:31 Orders (Tests/Meds): ORDERS Category Date Time Status Urine Culture Stat Micro 03/07/22 21:58 Received Medical Decision Narrative: 46-year-old female presented to the emergency department with history of renal lab abnormality identified as elevated creatinine via chart review with recent creatinine of 1.1 and creatinine of 1.1 today, with history of back pain without any concerning findings on physical examination aside from lower back mild tenderness to palpation worse with movement consistent with likely musculoskeletal pain. Patient has not had dysuria or frequency and had contaminated urinalysis unlikely to represent acute urinary tract infection. CBC and metabolic panel otherwise nonactionable. Patient had soft and nonperitoneal abdomen, patient was hemodynamically stable. Patient initial tachycardia resolved spontaneously in the katie
[2022-03-08 01:41] LABS: Basophils # 0.2 K/mm3 (0-0.2); Basophils % 2.5 % (0.1-2.0); Eosinophils # 0.3 K/mm3 (0.0-0.4); Eosinophils % 3.1 % (0.1-12.0); Hematocrit 42.7 % (37.0-47.0); Hemoglobin 14.4 g/dL (12.2-16.2); Lymphocytes % 22.4 % (10-50); Mean Corpuscular HGB Conc 33.8 g/dL (31.8-35.4); Mean Corpuscular Hemoglobin 31.7 pg (27.0-31.2); Mean Corpuscular Volume 93.6 fl (81-99); Mean Platelet Volume 8.6 fl (7.4-10.4); Monocytes # 0.4 K/mm3 (0.1-1.0); Neutrophils # 5.9 K/mm3 (1.8-7.8); Neutrophils % 66.9 % (37.0-80.0); Platelet Count 291 K/mm3 (142-424); Red Blood Count 4.56 M/mm3 (4.20-5.40); White Blood Count 8.7 K/mm3 (4.8-10.8)
[2022-03-08 01:45] LABS: Chloride 105 mmol/L (98-107); Sodium 138 mmol/L (136-145)
[2022-03-08 01:46] LABS: Potassium 4.5 mmoL/L (3.5-5.1)
[2022-03-08 01:48] LABS: Alanine Aminotransferase 27 U/L (12-78); Albumin Level 4.1 g/dl (3.5-5.0); Albumin/Globulin Ratio 1.3 (1.1-1.8); Alkaline Phosphatase 80 U/L (38-126); Anion Gap 9.5 mEq/L (5-15); Aspartate Amino Transferase 27 U/L (14-36); Bilirubin,Total 0.4 mg/dl (0.2-1.3); Blood Urea Nitrogen 21 mg/dl (7-17); Carbon Dioxide 28 mmol/L (22.0-30.0); Creatinine Clearance Estimated 48 mL/min (50-200); Estimated Glomerular Filt Rate 53 ml/min (>60); GFR (African American) 65 ML/MIN (>60); Globulin 3.1 g/dL (1.3-3.2); Total Protein,Serum 7.2 g/dl (6.3-8.2)
[2022-03-08 01:49] LABS: Calcium 9.7 mg/dl (8.4-10.2); Glucose 116 mg/dl (74-100)
[2022-03-08 02:14] VITALS: BP 118/74; PULSE 88; RESP 16; TEMP 36.7; O2SAT 97
== END 2022-03-08 02:18 | disposition home or self-care (01) ==
PROVIDERS: Emergency Provider Student in an Organized Health Care Education/Training Program; PCP Nurse Practitioner Family
DX: M54.50 Low back pain, unspecified (principal); R00.0 Tachycardia, unspecified; R53.82 Chronic fatigue, unspecified; I10 Essential (primary) hypertension; K21.9 Gastro-esophageal reflux disease without esophagitis; E03.9 Hypothyroidism, unspecified; M06.9 Rheumatoid arthritis, unspecified; M19.90 Unspecified osteoarthritis, unspecified site; G47.33 Obstructive sleep apnea (adult) (pediatric); G43.909 Migraine, unspecified, not intractable, without status migrainosus; E66.01 Morbid (severe) obesity due to excess calories; J45.909 Unspecified asthma, uncomplicated; Z79.1 Long term (current) use of non-steroidal anti-inflammatories (NSAID); Z79.51 Long term (current) use of inhaled steroids; Z79.899 Other long term (current) drug therapy; Z88.0 Allergy status to penicillin; Z88.2 Allergy status to sulfonamides; Z88.5 Allergy status to narcotic agent; Z88.8 Allergy status to other drugs, medicaments and biological substances; Z91.040 Latex allergy status; Z96.82 Presence of neurostimulator; Z68.42 Body mass index [BMI] 45.0-49.9, adult; Z85.51 Personal history of malignant neoplasm of bladder; Z87.891 Personal history of nicotine dependence; Z82.49 Family history of ischemic heart disease and other diseases of the circulatory system; Z83.3 Family history of diabetes mellitus
CPT/HCPCS: 80053; 81001; 85025; 87086; 99283

== ENCOUNTER → 2022-03-10 14:12 | Outpatient (CLI) | payer BC, SELFPAY ==
--- NOTE | 2022-03-10 14:16 | US_ITS ---
FINAL REPORT CLINICAL HISTORY: DECREASED RENAL FUNCTION; obesity FINDINGS: RENAL ULTRASOUND Ultrasound images of the kidneys were obtained. The right kidney measures 9.0 cm in length. It is normal echogenicity. There is no hydronephrosis. The left kidney measures 9.0 cm in length. It is normal echogenicity. There is no hydronephrosis. IMPRESSION: Normal renal ultrasound. Reviewed, Interpreted and Dictated by Juan Luis De La Cruz III, MD Transcribed by Layne Mccollum Authenticated by Juan Luis De La Cruz III, MD on 03/10/2022 04:56:19 PM [facility]
== END ==
PROVIDERS: PCP Nurse Practitioner Family; Visit Provider Nurse Practitioner Family
DX: N28.9 Disorder of kidney and ureter, unspecified (principal)
CPT/HCPCS: 76770

== ENCOUNTER → 2022-03-20 13:03 | Outpatient (CLI) | payer BC, SELFPAY ==
--- NOTE | 2022-03-20 13:03 | US_ITS ---
FINAL REPORT TECHNIQUE: Sonographic images of the pelvis were obtained transvaginally. 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 The cervical cuff appears normal. The right ovary measures 2.7 x 1.7 x 2.3 cm. It is normal in appearance. The left ovary is surgically absent. Color imaging to the right ovary is within normal limits. There is no free fluid. IMPRESSION: 1. Hysterectomy. 2. Left oophorectomy. 3. Normal right ovary. Reviewed, Interpreted and Dictated by Rachana Patel MD Transcribed by Tasia Hathaway Authenticated by Rachana Patel MD on 03/20/2022 02:55:24 PM [facility]
== END ==
PROVIDERS: PCP Nurse Practitioner Family; Visit Provider Nurse Practitioner Obstetrics & Gynecology
DX: N83.209 Unspecified ovarian cyst, unspecified side (principal); R10.2 Pelvic and perineal pain
CPT/HCPCS: 76830

== ENCOUNTER → 2022-03-31 12:59 | Outpatient (CLI) | payer BC, SELFPAY ==
--- NOTE | 2022-03-31 12:59 | MM_ITS ---
PROCEDURE INFORMATION: Exam: MG Bilateral Screening 3D Mammography Exam date and time: 03/31/2022 12:54 PM Age: 46 years old Clinical indication: mammogram TECHNIQUE: Imaging protocol: Bilateral Screening tomosynthesis and 2D mammography including computer-aided detection (CAD) when performed. COMPARISON: 1. MG MM DIG SCREENING MAMM BI W/CAD 03/28/2021 1:36 PM 2. MG MM DIG MAMM BI DX W/CAD 02/03/2020 2:42 PM 3. MG MM DIG SCREENING MAMM BI W/CAD 01/26/2020 2:20 PM 4. MG SCBI MM Dig screening mamm BI w/CAD 01/07/2019 3:16 PM FINDINGS: MAMMOGRAPHY: Breast composition: The breasts are almost entirely fatty. Mass: None. Architectural distortion: None. Calcifications: No suspicious calcifications. Asymmetric density: None. Skin thickening: None. Axillary adenopathy: None. IMPRESSION: No mammographic evidence of malignancy. Annual screening is recommended unless otherwise clinically indicated. ASSESSMENT: BI-RADS Category 1: Negative
== END ==
PROVIDERS: PCP Nurse Practitioner Family; Visit Provider Nurse Practitioner Obstetrics & Gynecology
DX: Z12.31 Encounter for screening mammogram for malignant neoplasm of breast (principal)
CPT/HCPCS: 77063; 77067

== ENCOUNTER → 2022-04-14 08:57 | Outpatient (CLI) | payer BC, SELFPAY ==
--- NOTE | 2022-04-14 08:57 | US_ITS ---
FINAL REPORT CLINICAL HISTORY: follow up nodule COMPARISON: April 24, 2021 FINDINGS: THYROID ULTRASOUND Sonographic images of the thyroid was obtained. The right lobe of the thyroid measures 4 x 1.3 x 1 cm. Two nodules are noted in the right thyroid measuring 8 x 4 x 4 mm and 5 x 4 x 3 mm. The left lobe of the thyroid measures 3.1 x 1 x 0.9 cm. The isthmus measures 2 mm. In addition, there is an ovoid nodule in the posterior right thyroid lobe measuring 10 x 9 x 5 mm, which is stable and may represent parathyroid gland. IMPRESSION: Stable nodules as above. Reviewed, Interpreted and Dictated by Juan Luis De La Cruz III, MD Transcribed by Sherrie Perry Authenticated and [facility]
== END ==
PROVIDERS: PCP Nurse Practitioner Family; Visit Provider Otolaryngology
DX: E03.9 Hypothyroidism, unspecified (principal)
CPT/HCPCS: 76536

== ENCOUNTER → 2022-04-21 14:23 | Outpatient (CLI) | payer BC, SELFPAY ==
[2022-04-21 13:27] LABS: Alanine Aminotransferase 20 U/L (12-78); Albumin/Globulin Ratio 1.3 (1.1-1.8); Alkaline Phosphatase 82 U/L (38-126); Anion Gap 12.7 mEq/L (5-15); Aspartate Amino Transferase 24 U/L (14-36); Bilirubin,Total 0.5 mg/dl (0.2-1.3); Blood Urea Nitrogen 24 mg/dl (7-17); Calcium 9.4 mg/dl (8.4-10.2); Carbon Dioxide 26 mmol/L (22.0-30.0); Chloride 103 mmol/L (98-107); Chol/HDL Ratio 4.1 (1-3.5); Cholesterol 197 mg/dl (140-200); Estimated Glomerular Filt Rate 67 ml/min (>60); GFR (African American) 82 ML/MIN (>60); Glucose 103 mg/dl (74-100); HDL Cholesterol 48 mg/dl (40-60); Potassium 4.7 mmoL/L (3.5-5.1); Sodium 137 mmol/L (136-145); Triglycerides 166 mg/dl (30-150); VLDL Cholesterol 33 mg/dL (0-40)
[2022-04-21 13:29] LABS: Basophils # 0.1 K/mm3 (0-0.2); Eosinophils # 0.2 K/mm3 (0.0-0.4); Eosinophils % 2.3 % (0.1-12.0); Hematocrit 46.3 % (37.0-47.0); Hemoglobin 14.6 g/dL (12.2-16.2); Lymphocytes # 2.1 K/mm3 (0.7-4.5); Lymphocytes % 20.5 % (10-50); Mean Corpuscular HGB Conc 31.6 g/dL (31.8-35.4); Mean Corpuscular Volume 98.1 fl (81-99); Mean Platelet Volume 8.8 fl (7.4-10.4); Monocytes # 0.5 K/mm3 (0.1-1.0); Monocytes % 4.6 % (1.7-9.3); Neutrophils # 7.4 K/mm3 (1.8-7.8); Neutrophils % 71.7 % (37.0-80.0); Platelet Count 304 K/mm3 (142-424); Red Blood Count 4.73 M/mm3 (4.20-5.40); Red Cell Distribution Width 14.1 % (11.5-17.5); White Blood Count 10.3 K/mm3 (4.8-10.8)
[2022-04-21 13:39] LABS: Direct LDL Cholesterol 114.43 mg/dL (100-129)
[2022-04-21 13:59] LABS: Thyroid Stimulating Hormone 2.11 uIU/mL (0.465-4.68)
== END ==
PROVIDERS: PCP Physician Assistant; Visit Provider Physician Assistant
DX: R79.89 Other specified abnormal findings of blood chemistry (principal)
CPT/HCPCS: 80053; 80061; 84443; 85025

== ENCOUNTER 2022-05-12 15:32 | Emergency (ER) | payer BC, SELFPAY ==
[2022-05-12 16:25] VITALS: BP 134/86; PULSE 101; RESP 19; TEMP 37; O2SAT 98; BMI 41.1
--- NOTE | 2022-05-12 16:38 | HMH.EDUTC ---
[facility] [place] Impression: Viral syndrome Disposition: Home, Self-Care Condition on Discharge: Good Instructions: Sore Throat, DI for Nasal Congestion Additional Instructions: *Monitor Temp, Over the counter Motrin or Tylenol as directed/as needed Tylenol every 4 hours and Motrin every 6 hours (as long as your family doctor has told you that you can take it) for fever or pain. and straight to ER if unable to lower temp less than 101.0 after medication given *Warm salt water gargles may help to soothe the throat *Throat Lozenges *Warm fluids like tea with honey may help to soothe the throat *Sleep elevated *Humidifier/Vaporizer Your throat swab was sent for culture. Those results are typically sent to your primary care. Be sure to follow up in 2-3 days with your family doctor/primary care physician if no improvement so they can review those result and treat if necessary. If you don?t have a primary care doctor, I recommend you get one but in the mean time, you will have to return to a walk in clinic Follow up IMMEDIATELY for new or worsening symptoms or no Noticeable improvement over the next 48-72 hours. 911 for difficulty breathing or swallowing Referrals: Denice Osorio PA [Primary Care Provider] - As needed Time of Disposition: 16:44 Medical Decision Making - Ab Inquiry Pt receiving controlled substance: No Ab was queried for this patient: No Vital Signs: 05/12/22 16:25 Temperature 98.6 F Temperature Source Oral Pulse Rate [Right Brachial] 101 H Respiratory Rate 19 Blood Pressure [Right Arm] 134/86 Blood Pressure Mean [Right Arm] 102 Blood Pressure Source [Right Arm] Automatic Cuff Blood Pressure Position [Right Arm] Sitting 02 Sat by Pulse Oximetry 98 Oxygen Delivery Method Room Air - Lab Data Lab results reviewed: Yes: I reviewed the patient's lab results. [facility] [place] - General Stated complaint: COUGH AND SORE THROAT Time Seen by Provider: 05/12/22 16:38 Mode of Arrival: Ambulatory Source of Information: Patient Limitations: No Limitations Description of Symptoms (Recalled from Triage Doc. by RN): PATIENT C/O COUGH AND SORE THROAT SINCE THURSDAY HEENT Symptoms (Recalled from RN notes): Yes Resp Symptoms (Recalled from RN notes): Yes Skin Symptoms (Recalled from RN notes): No MS Symptoms (Recalled from RN notes): No Functional Status (Recalled from RN notes): WNL - History of Present Illness Provider Complaint: Patient states that she has been having cough and sore throat since Thursday States that hurts when she swallows and her nose is congested States that she hasnt been around anyone with COVID that she is aware of and thinks it may be her sinuses or strep throat - Related Data Home Medications Medication Instructions Recorded Confirmed epinephrine 0.3 mg/0.3 mL 0.3 ml SQ DIRECTED PRN each 07/17/20 05/07/22 injection, auto-injector dexlansoprazole 60 mg 60 mg PO DAILY cap 04/04/21 05/07/22 capsule,biphase delayed release metaxalone 800 mg tablet 800 mg PO .COMPLEX tab 11/21/21 05/07/22 methenamine hippurate 1 gram tablet 1 g PO BID tab 11/21/21 05/07/22 Azelastine HCl [Azelastine Nasal 2 spray INTRANASAL BID 12/05/21 05/07/22 [place] 30mL Bottle] Beclomethasone Dipropionate 1 spray INTRANASAL DAILY 12/05/21 05/07/22 [Beconase Aq] Fluticasone Propionate 1 spray INTRANASAL DAILY 12/05/21 05/07/22 Furosemide [Furosemide 40MG tAB*] See Rx Instructions .ROUTE .COMPLEX 12/05/21 05/07/22 beclomethasone dipropionate 80 2 spray INTRANASAL g 02/25/22 05/07/22 mcg/actuation nasal HFA inhaler cholecalciferol (vitamin D3) 25 25 mcg PO cap 02/25/22 05/07/22 mcg (1,000 unit) capsule magnesium amino acid chelate 100 200 mg PO HS tab 05/07/22 05/07/22 mg tablet Previous Rx's Medication Instructions Recorded albuterol sulfate 90 mcg/actuation 1 inh INHALATION Q6H PRN 90 Days 06/20/21 aerosol inhaler #8.5 g galcanezumab-gnlm 120 mg/mL 120 mg S
[2022-05-12 16:43] LABS: UTC Strep Screen (Rapid) Negative (Negative)
[2022-05-12 16:48] VITALS: BP 134/86; PULSE 101; RESP 19; TEMP 37; O2SAT 98
== END 2022-05-12 16:55 | disposition home or self-care (01) ==
PROVIDERS: Emergency Provider Nurse Practitioner; PCP Physician Assistant
DX: B34.9 Viral infection, unspecified (principal)
CPT/HCPCS: 87880; 99212; C9803; G0463; U0003; U0005

== ENCOUNTER → 2022-05-15 16:26 | Outpatient (CLI) | payer BC, SELFPAY ==
--- NOTE | 2022-05-15 16:38 | XR_ITS ---
PROCEDURE INFORMATION: Exam: XR Chest Exam date and time: 05/15/2022 4:39 PM Age: 47 years old Clinical indication: Cough; Additional info: Cough SOB TECHNIQUE: Imaging protocol: Radiologic exam of the chest. Views: 2 views. COMPARISON: CR XR CHEST 2V 06/05/2019 11:18 PM FINDINGS: Airway: Patent Lungs: Unremarkable. No consolidation. Pleural spaces: Unremarkable. No pleural effusion. No pneumothorax. Heart/Mediastinum: Unremarkable. No cardiomegaly. Bones/joints: No acute skeletal abnormality or aggressive osseous lesion. IMPRESSION: No acute findings.
[2022-05-15 17:36] LABS: Basophils # 0.2 K/mm3 (0-0.2); Basophils % 1.1 % (0.1-2.0); Eosinophils # 0.3 K/mm3 (0.0-0.4); Eosinophils % 2.4 % (0.1-12.0); Hematocrit 40.8 % (37.0-47.0); Hemoglobin 13.8 g/dL (12.2-16.2); Lymphocytes # 2.1 K/mm3 (0.7-4.5); Lymphocytes % 15.1 % (10-50); Mean Corpuscular HGB Conc 33.7 g/dL (31.8-35.4); Mean Corpuscular Hemoglobin 30.9 pg (27.0-31.2); Mean Corpuscular Volume 91.7 fl (81-99); Mean Platelet Volume 8.1 fl (7.4-10.4); Monocytes # 0.7 K/mm3 (0.1-1.0); Monocytes % 4.6 % (1.7-9.3); Neutrophils # 10.8 K/mm3 (1.8-7.8); Neutrophils % 76.8 % (37.0-80.0); Platelet Count 358 K/mm3 (142-424); Red Blood Count 4.45 M/mm3 (4.20-5.40); White Blood Count 14.1 K/mm3 (4.8-10.8)
[2022-05-15 18:29] LABS: Chloride 105 mmol/L (98-107); Sodium 135 mmol/L (136-145)
[2022-05-15 18:30] LABS: Potassium 4.4 mmoL/L (3.5-5.1)
[2022-05-15 18:32] LABS: Alanine Aminotransferase 20 U/L (12-78); Alkaline Phosphatase 90 U/L (38-126); Anion Gap 12.4 mEq/L (5-15); Aspartate Amino Transferase 24 U/L (14-36); Bilirubin,Total 0.4 mg/dl (0.2-1.3); Blood Urea Nitrogen 23 mg/dl (7-17); Carbon Dioxide 22 mmol/L (22.0-30.0); Estimated Glomerular Filt Rate 59 ml/min (>60); GFR (African American) 72 ML/MIN (>60)
[2022-05-15 18:33] LABS: Albumin/Globulin Ratio 1.4 (1.1-1.8); Calcium 9.4 mg/dl (8.4-10.2); Globulin 2.9 g/dL (1.3-3.2); Glucose 139 mg/dl (74-100); Magnesium 1.5 mg/dl (1.6-2.3); Total Protein,Serum 6.9 g/dl (6.3-8.2)
== END ==
PROVIDERS: PCP Physician Assistant; Visit Provider Physician Assistant
DX: M62.838 Other muscle spasm (principal); R05.9 Cough, unspecified
CPT/HCPCS: 36415; 71046; 80053; 83036; 83735; 85025

== ENCOUNTER → 2022-06-13 11:17 | Outpatient (CLI) | payer BC, SELFPAY ==
[2022-06-13 11:22] LABS: MANUAL DIFFERENTIAL MANUAL DIFFERENTIAL (MANUAL DIFF)
[2022-06-13 12:14] LABS: Alanine Aminotransferase 20 U/L (12-78); Albumin Level 3.4 g/dl (3.5-5.0); Albumin/Globulin Ratio 1.3 (1.1-1.8); Alkaline Phosphatase 89 U/L (38-126); Anion Gap 9.6 mEq/L (5-15); Aspartate Amino Transferase 21 U/L (14-36); Bilirubin,Total 0.2 mg/dl (0.2-1.3); Blood Urea Nitrogen 14 mg/dl (7-17); Calcium 8.6 mg/dl (8.4-10.2); Carbon Dioxide 24 mmol/L (22.0-30.0); Chloride 107 mmol/L (98-107); Estimated Glomerular Filt Rate 90 ml/min (>60); GFR (African American) 109 ML/MIN (>60); Globulin 2.6 g/dL (1.3-3.2); Glucose 109 mg/dl (74-100); Potassium 4.6 mmoL/L (3.5-5.1); Sodium 136 mmol/L (136-145)
[2022-06-13 12:23] LABS: NT Pro Brain Natriuretic Pep. 62.8 pg/mL (0-125)
[2022-06-13 12:31] LABS: Basophils # 0.1 K/mm3 (0-0.2); Basophils % 0.9 % (0.1-2.0); Eosinophils # 0.2 K/mm3 (0.0-0.4); Eosinophils % 2.6 % (0.1-12.0); Hematocrit 40.3 % (37.0-47.0); Hemoglobin 12.6 g/dL (12.2-16.2); Lymphocytes # 1.7 K/mm3 (0.7-4.5); Lymphocytes % 20.6 % (10-50); Mean Corpuscular HGB Conc 31.2 g/dL (31.8-35.4); Mean Corpuscular Hemoglobin 30.2 pg (27.0-31.2); Mean Corpuscular Volume 96.8 fl (81-99); Mean Platelet Volume 8.8 fl (7.4-10.4); Monocytes # 0.4 K/mm3 (0.1-1.0); Monocytes % 4.9 % (1.7-9.3); Platelet Count 268 K/mm3 (142-424); Red Blood Count 4.16 M/mm3 (4.20-5.40); Red Cell Distribution Width 14.5 % (11.5-17.5); White Blood Count 8.4 K/mm3 (4.8-10.8)
[2022-06-13 12:49] LABS: Ferritin 71.9 ng/ml (6.24-137)
[2022-06-13 15:22] LABS: Eosinophils % 3 % (0-3); Lymphocytes % 22 % (10-50); Monocytes % 1 % (2-9); Neutrophils % 74 % (42-76); Platelet Estimate Normal; RBC Morphology Normal; Total Cells Counted 100
== END ==
PROVIDERS: Otolaryngology; PCP Nurse Practitioner Family; Visit Provider Internal Medicine Cardiovascular Disease
DX: R07.9 Chest pain, unspecified (principal); R06.09 Other forms of dyspnea; H69.80 Other specified disorders of Eustachian tube, unspecified ear; H92.02 Otalgia, left ear; E83.10 Disorder of iron metabolism, unspecified; G25.81 Restless legs syndrome; E66.01 Morbid (severe) obesity due to excess calories; G47.33 Obstructive sleep apnea (adult) (pediatric); I10 Essential (primary) hypertension; I50.9 Heart failure, unspecified; K21.9 Gastro-esophageal reflux disease without esophagitis; R94.31 Abnormal electrocardiogram [ECG] [EKG]; G43.909 Migraine, unspecified, not intractable, without status migrainosus
CPT/HCPCS: 36415; 80053; 82728; 83880; 85007; 85014; 85018; 85048; 85049; 95806

== ENCOUNTER → 2022-06-16 10:53 | Outpatient (CLI) | payer BC, SELFPAY | PROVIDERS: PCP Physician Assistant; Visit Provider Otolaryngology | DX: Z01.812 Encounter for preprocedural laboratory examination (principal); Z20.822 Contact with and (suspected) exposure to COVID-19; H69.80 Other specified disorders of Eustachian tube, unspecified ear; H92.02 Otalgia, left ear | CPT/HCPCS: C9803; U0003; U0005 ==

== ENCOUNTER 2022-06-18 08:45 | Day surgery (SDC) | payer BC, SELFPAY ==
[2022-06-16 09:43] VITALS: BMI 49.3
[2022-06-18] VITALS (13 sets, daily range): BP systolic 110–149; BP diastolic 61–91; PULSE 63–80; RESP 16–18; TEMP 36.1–36.5; O2SAT 94–99
--- NOTE | 2022-06-18 09:23 | P.OP_ITS ---
Date of procedure: 06/18/22 Pre-op Diagnosis:: Eustachian tube dysfunction left ear Post-op Diagnosis:: Eustachian tube dysfunction left ear Procedure performed:: Left tympanostomy and tube placement Surgeon:: Alexei Mcdonald MD General Utility Worker(s):: none SHOP LEAD:: Orlando Andrade Anesthesia: GETLanette Estimated blood loss (mL): 0 Operative findings:: Retracted left tympanic membrane Operative note:: The patient was brought to the operating room and after adequate general anesthesia the left ear was draped in the usual sterile fashion and operating microscope employed to visualize the tympanic membrane. A tympanostomy was then made in the anterior inferior quadrant and suction employed to clear the middle ear space of effusion. A T-tube was then placed and Ciprodex drops applied and the procedure concluded. All counts correct. Blood loss 0. Patient was sent recovery in stable condition. Condition: stable Disposition: PACU Complications:: None
--- NOTE | 2022-06-18 09:28 | P.PN_ITS ---
[facility] Medical History (Updated 05/12/22 @ 16:44 by Juliette Vargas APRN) Bilateral lower extremity edema Daytime sleepiness Elevated WBC count Fatigue History of primary bladder cancer Morbid obesity SUZANNE (obstructive sleep apnea) Social History Smoking Status: Former smoker pack-years: 14 second hand exposure: No alcohol intake: never substance use type: denies use current occupational status: unemployed household members: none housing: house number of children: 2 current occupational exposures/hazards: No caffeine: No
--- NOTE | 2022-06-18 09:34 | P.PNANES_ITS ---
[facility] Anesthesia Record Part I Anesthesia Record I Intake, IV Amount: 200 Estimated blood loss (mL): 0 Urine output (mL): 0 Blood Pressure: 119/76 SaO2: 94 Pulse Rate: 78 Respiratory Rate: 18 Temperature: 97.6 F Patient is:: Awake Stable to PACU at:: 08:12
--- NOTE | 2022-06-18 10:06 | SUR.PHASEI ---
0859- detailed report given to tonia addison in post op at this time. Pt transported to post op by tonia addison in stable condition.
== END 2022-06-18 09:40 | disposition home or self-care (01) ==
LOC: OR 08:46
PROVIDERS: PCP Physician Assistant; Visit Provider Otolaryngology
PROC: (CPT 69436; principal; 2022-06-18 07:30)
DX: H69.80 Other specified disorders of Eustachian tube, unspecified ear (principal)
CPT/HCPCS: 69436; J2405

== ENCOUNTER → 2022-06-26 14:20 | Outpatient (CLI) | payer BC, SELFPAY ==
[2022-06-27 10:00] LABS: Basophils # 0.1 K/mm3 (0-0.2); Basophils % 0.3 % (0.1-2.0); Eosinophils # 0.1 K/mm3 (0.0-0.4); Eosinophils % 0.3 % (0.1-12.0); Hematocrit 46.1 % (37.0-47.0); Lymphocytes # 1.6 K/mm3 (0.7-4.5); Mean Corpuscular HGB Conc 30.3 g/dL (31.8-35.4); Mean Corpuscular Hemoglobin 30.3 pg (27.0-31.2); Mean Corpuscular Volume 99.9 fl (81-99); Mean Platelet Volume 9.9 fl (7.4-10.4); Monocytes # 0.8 K/mm3 (0.1-1.0); Monocytes % 4.3 % (1.7-9.3); Neutrophils # 15.1 K/mm3 (1.8-7.8); Neutrophils % 86.1 % (37.0-80.0); Platelet Count 439 K/mm3 (142-424); Red Blood Count 4.62 M/mm3 (4.20-5.40); Red Cell Distribution Width 14.3 % (11.5-17.5); White Blood Count 17.6 K/mm3 (4.8-10.8)
[2022-06-27 10:15] LABS: Chloride 108 mmol/L (98-107); Potassium 4.5 mmoL/L (3.5-5.1); Sodium 139 mmol/L (136-145)
[2022-06-27 10:17] LABS: Alanine Aminotransferase 19 U/L (12-78); Amylase 58 U/L (30-110); Aspartate Amino Transferase 23 U/L (14-36); Blood Urea Nitrogen 28 mg/dl (7-17); Estimated Glomerular Filt Rate 67 ml/min (>60); GFR (African American) 81 ML/MIN (>60)
[2022-06-27 10:18] LABS: Albumin Level 4.2 g/dl (3.5-5.0); Albumin/Globulin Ratio 1.4 (1.1-1.8); Alkaline Phosphatase 98 U/L (38-126); Anion Gap 13.5 mEq/L (5-15); Bilirubin,Total 0.3 mg/dl (0.2-1.3); Calcium 9.6 mg/dl (8.4-10.2); Carbon Dioxide 22 mmol/L (22.0-30.0); Globulin 3.1 g/dL (1.3-3.2); Glucose 117 mg/dl (74-100); Lipase 83 U/L (23-300); Total Protein,Serum 7.3 g/dl (6.3-8.2)
[2022-06-27 10:21] LABS: MANUAL DIFFERENTIAL MANUAL DIFFERENTIAL (MANUAL DIFF)
[2022-06-27 11:12] LABS: Hemoglobin A1C 5.1 % (4.0-6.0)
[2022-06-27 11:46] LABS: Hypochromasia 1+; Lymphocytes % 11 % (10-50); Macrocytosis 1+; Monocytes % 3 % (2-9); Neutrophils % 85 % (42-76); Platelet Estimate Normal; Total Cells Counted 100
== END ==
PROVIDERS: PCP Physician Assistant; Visit Provider Physician Assistant
DX: R10.11 Right upper quadrant pain (principal); R53.83 Other fatigue
CPT/HCPCS: 80053; 82150; 83036; 83690; 83735; 85007; 85025

== ENCOUNTER → 2022-07-02 07:23 | Outpatient (CLI) | payer BC, SELFPAY ==
--- NOTE | 2022-07-02 07:23 | NM_ITS ---
APPROVED REPORT Exam: Nuclear Stress Test Indication: HTN, FM HX., C.P., SOB, FATIGUE, ABN EKG, OBESITY, SLEEP APNEA Patient Location: Outpatient Stress Tech: Asia Butler PA Tech:Marzena Lynn, ARRT RT (R)(N)(M) Ht: 5 ft 1 in Wt: 256 lbs Bra Size: 40C HR: 77 bpm BP: 127/39 mmHg BSA: 2.10 m2 TID: 1.10 BMI: 48.3 History: HTN, FM HX., C.P., SOB, FATIGUE, ABN EKG, OBESITY, SLEEP APNEA Procedure: Patient received a 0.4 mg of intravenous Lexiscan, resting heart rate 77 bpm, resting blood pressure 127/39 mmHg, with Lexiscan maximum heart rate achived was 121 bpm which is Less than 85 % of the maximum predicted heart rate and blood pressure was 143/84 mmHg. With Lexiscan, patient denied any complaint of chest pain. Electrocardiogram Resting electrocardiogram shows sinus rhythm with right ventricular conduction delay, with Lexiscan less than 1.[address] segment depression noted from the baseline EKG. The EKG portion of the Lexiscan is nondiagnostic. Cardiac Stress and Resting SPECT Images: Cardiac Stress and Resting SPECT images were obtained using technetium 99m Myoview 31.2 mCi stress and 10.80 mCi at rest. Gated SPECT for analysis of segmental wall motion and calculation of the ejection fraction also done. Prone images were also obtained. Cardiac stress and rest SPECT may show mild fixed defect in the anterior wall with normal contractility on gated SPECT is likely secondary to soft tissue attenuation, no reversible ischemia seen, computer derived ejection fraction is 60% with no regional wall motion abnormality, right ventricle is normal size and contractility. Conclusion: 1. The EKG portion of the Lexiscan is nondiagnostic. 2. No scintigraphic evidence of reversible ischemia seen, computer derived ejection fraction is 60% with no regional wall motion abnormality, right ventricle is normal size and contractility. 3. Likely normal Lexiscan Myoview study. Electronically signed by : Denny Gomez MD 07/02/2022 14:06:42
--- NOTE | 2022-07-02 09:43 | CA_ITS ---
APPROVED REPORT Exam: Pharmacologic Technologist: Asia Reyes, Ht: 5 ft 1 in Wt: 257 lbs BSA: 2.10 m2 HR: 77 bpm BP: 127/39 mmHg Medical History Medications: Lisinopril,,,,, Levothyroxine,,,,, Flonase,,,,, Lasix,,,,, Albuterol,,,,, Estradiol,,,,, Famotidine,,,,, Metaxalone,,,,, AZelastine,,,,, Trelegy,,,,, Epinephrine,,,,, Colestipol,,,,, Stress Test Details Test: LEXISCAN Reason for pharmacologic stress test: physical limitation. HR Resting HR: 76 bpm Max Heart Rate (APMHR): 173.590903 bpm Max HR Achieved: 121 bpm Target HR (85% APMHR): 147.447982 bpm % of APMHR: 69.94 Recovery HR: 102 bpm BP Resting BP: 127/39 mmHg Max BP: 143/84 mmHg Recovery BP: 130.0/78.0 mmHg ECG Resting ECG: NSR, incomplete RBBB, rightward axis Clinical Exercise duration: 04:08 min Highest Stage Achieved: Exercise capacity: 1.0 METs Stress ECG Conclusion Symptoms: SOA, head discomfort. No CP. Arrhythmias/Ectopy: None ST-T Changes: No significant changes. Conclusion: Unremarkable Lexiscan stress. Myoview images reported separately. Electronically signed by : Denny Gomez MD 07/02/2022 14:03:18
== END ==
PROVIDERS: PCP Physician Assistant; Visit Provider Internal Medicine Cardiovascular Disease
DX: R06.09 Other forms of dyspnea (principal); R07.9 Chest pain, unspecified; I10 Essential (primary) hypertension; K21.9 Gastro-esophageal reflux disease without esophagitis; E66.01 Morbid (severe) obesity due to excess calories; G47.33 Obstructive sleep apnea (adult) (pediatric); R94.31 Abnormal electrocardiogram [ECG] [EKG]; Z68.42 Body mass index [BMI] 45.0-49.9, adult
CPT/HCPCS: 78452; 93017; A9502; J2785

== ENCOUNTER → 2022-07-15 08:49 | Outpatient (CLI) | payer BC, SELFPAY ==
--- NOTE | 2022-07-15 08:49 | CT_ITS ---
FINAL REPORT TECHNIQUE: Pre- and postcontrast images of the abdomen were performed by computed tomography. This study was performed with techniques to keep radiation doses as low as reasonably achievable (ALARA). Individualized dose reduction techniques using automated exposure control or adjustment of mA and/or kV according to the patient's size were employed. CLINICAL HISTORY: ruq pain with liver lesion FINDINGS: On the precontrast images, no kidney stones are identified. The lung bases are clear. There is mild fatty infiltration of the liver. In the posterior medial segment of the left hepatic lobe is a 3.1 x 2.2 cm low-attenuation focus well seen on images 31-35 of series 4. The gallbladder is surgically absent. The spleen is unremarkable. The adrenals are normal. The pancreas is unremarkable. The kidneys enhance appropriately. There is a stimulator device at the superior right gluteal region. IMPRESSION: Low-attenuation focus in the medial segment of the left hepatic lobe which does not appear to represent a simple cyst. This focus does not demonstrate the typical features for hemangioma, could represent a complex disc. Correlation with ultrasound could provide complementary characterization. Reviewed, Interpreted and Dictated by Henry Frazier MD Transcribed by Adilia Ozuna Authenticated and [facility]
== END ==
PROVIDERS: PCP Physician Assistant; Visit Provider Student in an Organized Health Care Education/Training Program
DX: R10.11 Right upper quadrant pain (principal); K76.9 Liver disease, unspecified
CPT/HCPCS: 74170; Q9967

== ENCOUNTER → 2022-07-21 07:55 | Outpatient (CLI) | payer BC, SELFPAY ==
--- NOTE | 2022-07-21 07:56 | US_ITS ---
FINAL REPORT TECHNIQUE: Multiple transverse and longitudinal images CLINICAL HISTORY: rec. to correlate with CT FINDINGS: The gallbladder is surgically absent. No biliary ductal dilatation is appreciated. No fluid collections are seen. Fatty changes of the liver. Limited portions of the right kidney are unremarkable. IMPRESSION: 1. Fatty changes of the liver. 2. Post cholecystectomy Reviewed, Interpreted and Dictated by Ewelina Adams MD Transcribed by Pedrito Bass Authenticated and [facility]
== END ==
PROVIDERS: PCP Physician Assistant; Visit Provider Physician Assistant
DX: K76.89 Other specified diseases of liver (principal)
CPT/HCPCS: 76705

== ENCOUNTER → 2022-08-04 12:27 | Outpatient (CLI) | payer BC, SELFPAY ==
--- NOTE | 2022-08-04 12:30 | XR_ITS ---
FINAL REPORT CLINICAL HISTORY: hip pain FINDINGS: 2 views of the left hip and an AP pelvis were obtained. There is no acute fracture or dislocation. There are mild degenerative changes of both hips. A pelvic stimulator is present. IMPRESSION: Mild degenerative change. Reviewed, Interpreted and Dictated by Juan Luis De La Cruz III, MD Transcribed by Pedrito Bass Authenticated and . [facility]
--- NOTE | 2022-08-04 12:31 | CT_ITS ---
FINAL REPORT TECHNIQUE: Thin section axial CT images with coronal and sagittal reformats were performed through the neck. This study was performed with techniques to keep radiation doses as low as reasonably achievable (ALARA). Individualized dose reduction techniques using automated exposure control or adjustment of mA and/or kV according to the patient's size were employed. CLINICAL HISTORY: pressure back of head. neck pain FINDINGS: No adenopathy or mass lesion is present . Salivary glands are normal. Larynx is unremarkable. Thyroid gland is unremarkable. Mild degenerative changes are present. IMPRESSION: No acute process. Reviewed, Interpreted and Dictated by Juan Luis De La Cruz III, MD Transcribed by Pedrito Bass Authenticated and [facility]
== END ==
PROVIDERS: PCP Physician Assistant; Visit Provider Physician Assistant
DX: R59.1 Generalized enlarged lymph nodes (principal); M25.552 Pain in left hip
CPT/HCPCS: 70490; 73502

== ENCOUNTER → 2022-08-06 14:09 | Outpatient (CLI) | payer BC, SELFPAY ==
[2022-08-06 15:13] VITALS: BMI 49.7
== END ==
PROVIDERS: PCP Physician Assistant; Visit Provider Nurse Practitioner Family
DX: Z71.3 Dietary counseling and surveillance (principal); E66.9 Obesity, unspecified; Z68.42 Body mass index [BMI] 45.0-49.9, adult
CPT/HCPCS: 97802

== ENCOUNTER → 2022-08-22 13:05 | Outpatient (CLI) | payer BC, SELFPAY | PROVIDERS: PCP Emergency Medicine; Visit Provider Emergency Medicine | DX: R39.9 Unspecified symptoms and signs involving the genitourinary system (principal) | CPT/HCPCS: 87086 ==

== ENCOUNTER → 2022-08-29 13:10 | Outpatient (CLI) | payer BC, SELFPAY ==
[2022-08-29 20:50] LABS: Alanine Aminotransferase 17 U/L (12-78); Albumin Level 3.9 g/dl (3.5-5.0); Albumin/Globulin Ratio 1.5 (1.1-1.8); Alkaline Phosphatase 104 U/L (38-126); Anion Gap 13.4 mEq/L (5-15); Aspartate Amino Transferase 21 U/L (14-36); Bilirubin,Total 0.2 mg/dl (0.2-1.3); Blood Urea Nitrogen 18 mg/dl (7-17); Calcium 9.5 mg/dl (8.4-10.2); Carbon Dioxide 25 mmol/L (22.0-30.0); Chloride 103 mmol/L (98-107); Chol/HDL Ratio 3.5 (1-3.5); Cholesterol 180 mg/dl (140-200); Estimated Glomerular Filt Rate 77 ml/min (>60); GFR (African American) 93 ML/MIN (>60); Globulin 2.6 g/dL (1.3-3.2); Glucose 100 mg/dl (74-100); HDL Cholesterol 51 mg/dl (40-60); Potassium 4.4 mmoL/L (3.5-5.1); Sodium 137 mmol/L (136-145); Total Protein,Serum 6.5 g/dl (6.3-8.2); Triglycerides 187 mg/dl (30-150); VLDL Cholesterol 37 mg/dL (0-40)
[2022-08-29 20:53] LABS: Basophils # 0.1 K/mm3 (0-0.2); Basophils % 1.1 % (0.1-2.0); Eosinophils # 0.2 K/mm3 (0.0-0.4); Eosinophils % 2.1 % (0.1-12.0); Hematocrit 41.9 % (37.0-47.0); Hemoglobin 13.6 g/dL (12.2-16.2); Lymphocytes # 2.1 K/mm3 (0.7-4.5); Lymphocytes % 23.6 % (10-50); Mean Corpuscular HGB Conc 32.5 g/dL (31.8-35.4); Mean Corpuscular Hemoglobin 31.1 pg (27.0-31.2); Mean Corpuscular Volume 95.8 fl (81-99); Mean Platelet Volume 9.9 fl (7.4-10.4); Monocytes # 0.4 K/mm3 (0.1-1.0); Neutrophils # 6.2 K/mm3 (1.8-7.8); Neutrophils % 69.2 % (37.0-80.0); Platelet Count 283 K/mm3 (142-424); Red Blood Count 4.38 M/mm3 (4.20-5.40); Red Cell Distribution Width 13.9 % (11.5-17.5); White Blood Count 8.9 K/mm3 (4.8-10.8)
[2022-08-29 21:07] LABS: Direct LDL Cholesterol 106.56 mg/dL (100-129)
[2022-08-29 21:21] LABS: Thyroid Stimulating Hormone 0.46 uIU/mL (0.465-4.68)
== END ==
PROVIDERS: PCP Student in an Organized Health Care Education/Training Program; Visit Provider Student in an Organized Health Care Education/Training Program
DX: E66.01 Morbid (severe) obesity due to excess calories (principal); R82.90 Unspecified abnormal findings in urine; Z68.42 Body mass index [BMI] 45.0-49.9, adult
CPT/HCPCS: 80053; 80061; 83036; 84443; 85025; 87086

== ENCOUNTER → 2022-11-24 14:15 | Outpatient (CLI) | payer BC, SELFPAY ==
--- NOTE | 2022-11-24 14:19 | US_ITS ---
FINAL REPORT TECHNIQUE: Sonographic images were obtained of the retroperitoneum. CLINICAL HISTORY: HEMATURIA FINDINGS: The right kidney measures 7.9 cm. The left kidney measures 8.3 cm. There is no evidence of renal mass or hydronephrosis. The spleen measures 9.0 cm. IMPRESSION: No acute process. Reviewed, Interpreted and Dictated by Juan Luis De La Cruz III, MD Transcribed by Pedrito Bass Authenticated and [facility]
== END ==
PROVIDERS: PCP Physician Assistant; Visit Provider Nurse Practitioner Family
DX: R31.29 Other microscopic hematuria (principal); M62.89 Other specified disorders of muscle; C67.9 Malignant neoplasm of bladder, unspecified
CPT/HCPCS: 76770

== ENCOUNTER → 2022-11-26 13:24 | Outpatient (CLI) | payer BC, SELFPAY | PROVIDERS: PCP Physician Assistant; Visit Provider Specialist | DX: G47.33 Obstructive sleep apnea (adult) (pediatric) (principal) | CPT/HCPCS: 94762 ==

== ENCOUNTER → 2022-12-19 14:25 | Outpatient (CLI) | payer BC, SELFPAY ==
[2022-12-19 14:57] LABS: Basophils # 0.1 K/mm3 (0-0.2); Basophils % 1.2 % (0.1-2.0); Eosinophils # 0.3 K/mm3 (0.0-0.4); Eosinophils % 3.4 % (0.1-12.0); Hematocrit 44.2 % (37.0-47.0); Hemoglobin 14.5 g/dL (12.2-16.2); Lymphocytes # 1.5 K/mm3 (0.7-4.5); Lymphocytes % 19.5 % (10-50); Mean Corpuscular HGB Conc 32.8 g/dL (31.8-35.4); Mean Corpuscular Hemoglobin 30.8 pg (27.0-31.2); Mean Corpuscular Volume 93.9 fl (81-99); Monocytes # 0.4 K/mm3 (0.1-1.0); Monocytes % 4.6 % (1.7-9.3); Neutrophils # 5.4 K/mm3 (1.8-7.8); Neutrophils % 71.4 % (37.0-80.0); Platelet Count 243 K/mm3 (142-424); Red Blood Count 4.71 M/mm3 (4.20-5.40); Red Cell Distribution Width 14.1 % (11.5-17.5); White Blood Count 7.5 K/mm3 (4.8-10.8)
[2022-12-19 15:30] LABS: Alanine Aminotransferase 47 U/L (12-78); Albumin Level 4.1 g/dl (3.5-5.0); Alkaline Phosphatase 91 U/L (38-126); Anion Gap 7.2 mEq/L (5-15); Aspartate Amino Transferase 40 U/L (14-36); Bilirubin,Direct 0.3 mg/dl (0.0-0.4); Bilirubin,Indirect 0.5 mg/dL (0.0-0.9); Bilirubin,Total 0.8 mg/dl (0.2-1.3); Bilirubin,Unconjugated 0.5 mg/dL (0.0-1.1); Blood Urea Nitrogen 17 mg/dl (7-17); Carbon Dioxide 24 mmol/L (22.0-30.0); Chloride 112 mmol/L (98-107); Chol/HDL Ratio 3.8 (1-3.5); Cholesterol 169 mg/dl (140-200); Estimated Glomerular Filt Rate 59 ml/min (>60); GFR (African American) 72 ML/MIN (>60); Glucose 103 mg/dl (74-100); HDL Cholesterol 44 mg/dl (40-60); Magnesium 1.9 mg/dl (1.6-2.3); Potassium 4.2 mmoL/L (3.5-5.1); Sodium 139 mmol/L (136-145); Total Protein,Serum 6.8 g/dl (6.3-8.2); Triglycerides 230 mg/dl (30-150); VLDL Cholesterol 46 mg/dL (0-40)
[2022-12-19 15:41] LABS: Direct LDL Cholesterol 95.92 mg/dL (100-129)
[2022-12-19 15:47] LABS: Free T4 (Free Thyroxine) 1.05 ng/dl (0.78-2.19)
== END ==
PROVIDERS: PCP Physician Assistant; Visit Provider Internal Medicine Cardiovascular Disease
DX: I10 Essential (primary) hypertension (principal); F17.200 Nicotine dependence, unspecified, uncomplicated; Z79.899 Other long term (current) drug therapy
CPT/HCPCS: 36415; 80048; 80061; 80076; 83735; 84439; 84443; 85025

== ENCOUNTER → 2022-12-22 12:53 | Outpatient (CLI) | payer BC, SELFPAY ==
--- NOTE | 2022-12-22 12:53 | US_ITS ---
FINAL REPORT CLINICAL HISTORY: pain left axilla FINDINGS: ULTRASOUND SOFT TISSUE LEFT AXILLA Sonographic images of the left axilla were obtained. There is no fluid collection. Several small lymph nodes are seen, the largest measuring up to 1 cm. IMPRESSION: Small lymph nodes measuring up to 1 cm. Reviewed, Interpreted and Dictated by Rachana Patel MD Transcribed by Layne Mccollum Authenticated and [facility]
== END ==
PROVIDERS: PCP Physician Assistant; Visit Provider Physician Assistant
DX: M79.622 Pain in left upper arm (principal)
CPT/HCPCS: 76604

== ENCOUNTER → 2023-01-21 10:44 | Outpatient (CLI) | payer BC, SELFPAY ==
[2023-01-21 14:41] LABS: Basophils # 0.1 K/mm3 (0-0.2); Eosinophils # 0.2 K/mm3 (0.0-0.4); Eosinophils % 2.7 % (0.1-12.0); Hematocrit 45.9 % (37.0-47.0); Hemoglobin 14.5 g/dL (12.2-16.2); Lymphocytes # 2.5 K/mm3 (0.7-4.5); Mean Corpuscular HGB Conc 31.6 g/dL (31.8-35.4); Mean Corpuscular Hemoglobin 30.3 pg (27.0-31.2); Mean Corpuscular Volume 95.7 fl (81-99); Mean Platelet Volume 9.2 fl (7.4-10.4); Monocytes # 0.4 K/mm3 (0.1-1.0); Monocytes % 5.2 % (1.7-9.3); Neutrophils # 5.1 K/mm3 (1.8-7.8); Neutrophils % 61.1 % (37.0-80.0); Platelet Count 255 K/mm3 (142-424); Red Cell Distribution Width 14.3 % (11.5-17.5); White Blood Count 8.4 K/mm3 (4.8-10.8)
[2023-01-21 14:59] LABS: Alanine Aminotransferase 28 U/L (12-78); Albumin Level 4.4 g/dl (3.5-5.0); Albumin/Globulin Ratio 1.6 (1.1-1.8); Alkaline Phosphatase 93 U/L (38-126); Anion Gap 11.7 mEq/L (5-15); Aspartate Amino Transferase 30 U/L (14-36); Bilirubin,Total 0.7 mg/dl (0.2-1.3); Blood Urea Nitrogen 17 mg/dl (7-17); Calcium 9.3 mg/dl (8.4-10.2); Carbon Dioxide 27 mmol/L (22.0-30.0); Chloride 104 mmol/L (98-107); Chol/HDL Ratio 3.7 (1-3.5); Cholesterol 187 mg/dl (140-200); Estimated Glomerular Filt Rate 67 ml/min (>60); GFR (African American) 81 ML/MIN (>60); Globulin 2.7 g/dL (1.3-3.2); Glucose 99 mg/dl (74-100); HDL Cholesterol 51 mg/dl (40-60); Potassium 4.7 mmoL/L (3.5-5.1); Sodium 138 mmol/L (136-145); Total Protein,Serum 7.1 g/dl (6.3-8.2); Triglycerides 170 mg/dl (30-150); VLDL Cholesterol 34 mg/dL (0-40)
[2023-01-21 15:12] LABS: Direct LDL Cholesterol 114.85 mg/dL (100-129)
[2023-01-21 15:31] LABS: Thyroid Stimulating Hormone 3.25 uIU/mL (0.465-4.68)
[2023-01-21 16:07] LABS: Vitamin B12 951 pg/mL (239-931)
[2023-01-21 19:44] LABS: Iron 86 ug/dL (37-170)
[2023-01-21 19:53] LABS: Total Iron Binding Capacity 351 ug/dL (265-497)
[2023-01-21 20:20] LABS: Ferritin 52.2 ng/ml (6.24-137)
== END ==
PROVIDERS: PCP Physician Assistant; Visit Provider Physician Assistant
DX: M79.604 Pain in right leg (principal); M79.605 Pain in left leg; E66.01 Morbid (severe) obesity due to excess calories; Z68.41 Body mass index [BMI] 40.0-44.9, adult; Z98.84 Bariatric surgery status
CPT/HCPCS: 80053; 80061; 82306; 82607; 82728; 83540; 83550; 84443; 85025

== ENCOUNTER → 2023-01-21 11:45 | Outpatient (CLI) | payer BC, SELFPAY | PROVIDERS: PCP Physician Assistant; Visit Provider Physician Assistant | DX: M79.604 Pain in right leg (principal); M79.605 Pain in left leg ==

== ENCOUNTER → 2023-03-05 10:00 | Outpatient (CLI) | payer BC, SELFPAY ==
[2023-03-05 14:11] LABS: Basophils # 0.1 K/mm3 (0-0.2); Basophils % 0.7 % (0.1-2.0); Eosinophils # 0.2 K/mm3 (0.0-0.4); Eosinophils % 2.6 % (0.1-12.0); Lymphocytes # 1.9 K/mm3 (0.7-4.5); Lymphocytes % 27.8 % (10-50); Mean Corpuscular HGB Conc 31.8 g/dL (31.8-35.4); Mean Corpuscular Hemoglobin 30.9 pg (27.0-31.2); Mean Corpuscular Volume 97.3 fl (81-99); Mean Platelet Volume 9.8 fl (7.4-10.4); Monocytes # 0.4 K/mm3 (0.1-1.0); Monocytes % 5.6 % (1.7-9.3); Neutrophils # 4.4 K/mm3 (1.8-7.8); Neutrophils % 63.4 % (37.0-80.0); Platelet Count 257 K/mm3 (142-424); Red Blood Count 4.52 M/mm3 (4.20-5.40); Red Cell Distribution Width 13.6 % (11.5-17.5)
[2023-03-05 14:17] LABS: Chloride 100 mmol/L (98-107); Potassium 4.2 mmoL/L (3.5-5.1); Sodium 139 mmol/L (136-145)
[2023-03-05 14:19] LABS: Alanine Aminotransferase 26 U/L (12-78); Alkaline Phosphatase 101 U/L (38-126); Aspartate Amino Transferase 29 U/L (14-36); Bilirubin,Total 0.7 mg/dl (0.2-1.3); Blood Urea Nitrogen 16 mg/dl (7-17); Estimated Glomerular Filt Rate 67 ml/min (>60); GFR (African American) 81 ML/MIN (>60)
[2023-03-05 14:20] LABS: Albumin Level 3.9 g/dl (3.5-5.0); Albumin/Globulin Ratio 1.4 (1.1-1.8); Anion Gap 17.2 mEq/L (5-15); Calcium 8.8 mg/dl (8.4-10.2); Carbon Dioxide 26 mmol/L (22.0-30.0); Globulin 2.7 g/dL (1.3-3.2); Glucose 106 mg/dl (74-100); Iron 81 ug/dL (37-170); Total Protein,Serum 6.6 g/dl (6.3-8.2)
== END ==
PROVIDERS: PCP Nurse Practitioner Family; Visit Provider Nurse Practitioner Family
DX: R53.83 Other fatigue (principal); E66.9 Obesity, unspecified; Z68.39 Body mass index [BMI] 39.0-39.9, adult; Z90.3 Acquired absence of stomach [part of]
CPT/HCPCS: 80053; 83540; 85025

== ENCOUNTER → 2023-03-06 14:31 | Outpatient (CLI) | payer BC, SELFPAY ==
--- NOTE | 2023-03-06 14:31 | MM_ITS ---
PROCEDURE INFORMATION: Exam: MG Bilateral Screening 3D Mammography Exam date and time: 03/06/2023 2:34 PM Age: 47 years old Clinical indication: Screening mammogram TECHNIQUE: Imaging protocol: Bilateral Screening tomosynthesis and 2D mammography including computer-aided detection (CAD) when performed. COMPARISON: 1. MG MM DIG SCREENING MAMM BI W/CAD 03/31/2022 12:54 PM 2. MG MM DIG SCREENING MAMM BI W/CAD 03/28/2021 1:36 PM 3. MG MM DIG MAMM BI DX W/CAD 02/03/2020 2:42 PM 4. MG MM DIG SCREENING MAMM BI W/CAD 01/26/2020 2:20 PM FINDINGS: MAMMOGRAPHY: Breast composition: The breasts are almost entirely fatty. Mass: None. Architectural distortion: No new or suspicious architectural distortion. Calcifications: No new or suspicious calcifications are present Asymmetric density: No new or suspicious asymmetric density is present Skin thickening: None. Axillary adenopathy: None. IMPRESSION: No mammographic evidence of malignancy. Recommend annual screening mammography unless otherwise clinically indicated. ASSESSMENT: BI-RADS category 1: Negative
== END ==
PROVIDERS: PCP Physician Assistant; Visit Provider Physician Assistant
DX: Z12.31 Encounter for screening mammogram for malignant neoplasm of breast (principal)
CPT/HCPCS: 77063; 77067

== ENCOUNTER 2023-03-23 14:39 | Emergency (ER) | payer BC, SELFPAY ==
[2023-03-23 14:43] VITALS: BP 106/40; PULSE 113; RESP 16; TEMP 37.7; O2SAT 100; BMI 39.4
[2023-03-23 14:59] VITALS: BP 106/40; PULSE 113; RESP 22; TEMP 37.7; O2SAT 100; BMI 39.5
--- NOTE | 2023-03-23 15:00 | EXP.UTC ---
Discharge Plan Disposition Patient Disposition: Home Health Service Condition: Good Prescriptions Prescriptions: New azithromycin [Zithromax] 250 mg tablet 250 mg PO UD DOSE PK Qty: 6 0RF Rx Instructions: Take two (2) tablets today, then one (1) tablet days #2 thru #5 methylprednisolone 4 mg Tablets,Dose Pack 4 mg PO DIRECTED Qty: 21 0RF [id number] [Bromfed DM] 2-30-10 mg/5 mL Syrup 5 ml PO Q6H PRN (Reason: Cough) Qty: 240 0RF No Action epinephrine 0.3 mg/0.3 mL auto-injector 0.3 ml SQ DIRECTED PRN (Reason: Allergic Reaction) methenamine hippurate 1 gram tablet 1 g PO BID ciprofloxacin-dexamethasone [Ciprodex] 0.3-0.1 % drops,suspension 4 drp otic (ear) BID PRN (Reason: ear infection) galcanezumab-gnlm 120 mg/mL pen injector 120 mg SQ QMONTH Qty: 1 5RF dexlansoprazole 60 mg capsule,biphase delayed releas 60 mg PO DAILY QNASL 80 mcg/actuation HFA aerosol inhaler 2 spray INTRANASAL DAILY Trelegy Ellipta 200-62.5-25 mcg blister with device 1 inh inhalation DAILY colestipol 1 gram tablet 1 g PO DAILY rizatriptan 10 mg tablet,disintegrating See Rx Instructions PO .COMPLEX Qty: 10 6RF Rx Instructions: 1 tab at onset of headache PRN; if no relief, repeat 1 tab after 2 hrs; max = 2 tabs/24 hr 4tab/week gabapentin 100 mg capsule 100 mg PO BID PRN (Reason: pain) Qty: 60 0RF metaxalone 800 mg tablet 800 mg PO DAILY Rhofade 1 % cream 1 applic topical DAILY famotidine 20 mg tablet 20 mg PO DAILY Qty: 30 0RF montelukast 10 mg tablet See Rx Instructions .ROUTE .COMPLEX Qty: 90 3RF Rx Instructions: TAKE 1 TABLET BY MOUTH DAILY FOR ALLERGIES furosemide 40 mg tablet 40 mg PO DAILY Qty: 90 3RF ergocalciferol (vitamin D2) [Vitamin D2] 1,250 mcg (50,000 unit) capsule 50,000 unit .ROUTE .COMPLEX Qty: 14 0RF Rx Instructions: 50,000 units; estradiol 2 mg tablet 2 mg PO DAILY Qty: 30 11RF ondansetron 4 mg tablet,disintegrating See Rx Instructions .ROUTE .COMPLEX Qty: 30 3RF Rx Instructions: TAKE ONE TABLET BY MOUTH EVERY 8 HOURS NEEDED FOR NAUSEA & VOMITING *MAY CAUSE DROWSINESS* azelastine 137 MCG/0.137 ML bottle 2 spray INTRANASAL BID Rx Instructions: administer into each nostril fluticasone propionate 16 GM spray,suspension 1 spray INTRANASAL DAILY (DME) OneTouch Ultra Test Strip See Rx Instructions .ROUTE .COMPLEX Rx Instructions: USE TO CHECK BLOOD SUGAR DIRECTED triamcinolone acetonide 0.1 % cream See Rx Instructions .ROUTE .COMPLEX Rx Instructions: APPLY TO AFFECTED AREA TOPICALLY FOUR TIMES A DAY FOR REDNESS, ITCHING magnesium oxide 400 mg (241.3 mg magnesium) tablet See Rx Instructions .ROUTE .COMPLEX Rx Instructions: TAKE 1 TABLET BY MOUTH DAILY FOR SUPPLEMENT (DME) blood-glucose meter [Blood Glucose Monitoring] Kit See Rx Instructions .ROUTE .MEDSUPPLY Rx Instructions: As directed gabapentin 100 mg capsule 100 mg PO BID albuterol sulfate 90 mcg/actuation HFA aerosol inhaler See Rx Instructions .ROUTE .COMPLEX Rx Instructions: SHAKE WELL AND INHALE 2 PUFFS EVERY SIX HOURS lisinopril 40 mg tablet See Rx Instructions .ROUTE .COMPLEX Rx Instructions: TAKE 1 TABLET BY MOUTH ONCE DAILY loratadine 10 mg tablet See Rx Instructions .ROUTE .COMPLEX Rx Instructions: TAKE 1 TABLET BY MOUTH ONCE DAILY cholecalciferol (vitamin D3) 25 mcg (1,000 unit) capsule See Rx Instructions .ROUTE .COMPLEX Rx Instructions: TAKE 1 CAPSULE BY MOUTH EVERY DAY Slow Fe 142 mg (45 mg iron) tablet extended release 142 mg PO DAILY levothyroxine 100 mcg capsule 100 mcg PO DAILY Referrals Follow up/Referrals: Denice Osorio PA [Primary Care Provider] - See instructions Activity Restrictions/Add. Instruc
[2023-03-23 15:11] LABS: UTC Strep Screen (Rapid) Negative (Negative)
[2023-03-23 15:17] VITALS: BP 110/55; PULSE 96; RESP 18; TEMP 37.5; O2SAT 97
== END 2023-03-23 15:19 | disposition home health service (06) ==
PROVIDERS: Nurse Practitioner Family; Emergency Provider Emergency Medicine; PCP Physician Assistant
DX: J01.90 Acute sinusitis, unspecified (principal); J45.901 Unspecified asthma with (acute) exacerbation; R50.9 Fever, unspecified; K21.9 Gastro-esophageal reflux disease without esophagitis; G47.33 Obstructive sleep apnea (adult) (pediatric); E66.01 Morbid (severe) obesity due to excess calories
CPT/HCPCS: 87880; 99212; 99214; G0463

== ENCOUNTER → 2023-03-26 12:34 | Outpatient (POV) | payer BC, SELFPAY | PROVIDERS: Visit Provider Specialist/Technologist | DX: Z00.00 Encounter for general adult medical examination without abnormal findings (principal) ==

== ENCOUNTER → 2023-03-31 11:20 | Outpatient (CLI) | payer BC, SELFPAY ==
--- NOTE | 2023-03-31 11:25 | XR_ITS ---
FINAL REPORT CLINICAL HISTORY: lt knee pain COMPARISON: None FINDINGS: LEFT KNEE 5 views of the left knee were obtained. There is no acute fracture or dislocation. There is severe diffuse degenerative change particularly involving the patellofemoral compartment. There is lateral subluxation of the patella. No significant joint effusion is present.. Soft tissues are unremarkable. IMPRESSION: Severe diffuse degenerative change of the left knee, worst in the patellofemoral joint with lateral subluxation of the patella. Reviewed, Interpreted and Dictated by Ewelina Adams MD Transcribed by Jyothi Holloway Authenticated and [facility]
== END ==
PROVIDERS: PCP Physician Assistant; Visit Provider Orthopaedic Surgery
DX: M25.562 Pain in left knee (principal)
CPT/HCPCS: 73562

== ENCOUNTER → 2023-05-06 08:56 | Outpatient (CLI) | payer BC, SELFPAY ==
--- NOTE | 2023-05-06 08:56 | XR_ITS ---
FINAL REPORT TECHNIQUE: Bone densitometry calculations of the lumbar spine and left hip were obtained. CLINICAL HISTORY: 2 year followup COMPARISON: 04/09/2021 FINDINGS: Using L1-4, the bone mineral density of the spine is 1.036 g/cm2, corresponding to T-score of -0.1 and a Z score of 0.5. This is within the range of normal. Bone mineral density was 0.992 on the prior study. Using the left hip, the bone mineral density of the femoral neck is 0.773 g/cm2, corresponding to a T-score of -0.7 and a Z-score of -0.1. This is within the range of normal. Bone mineral density was 0.808 on the prior study. FRAX 10 year fracture risk is 0.1% for a hip fracture and 5.6% for a major osteoporotic fracture. NOTE: T-score: Standard deviation compared with peak bone mass of young adult mean. *Following the recommendations of the International Society of Bone densitometry, classification of hip BMD is based on the lower of two T-scores; total hip or femoral neck. IMPRESSION: 1. Bone mineral density of the lumbar spine within the range of normal. 2. Bone mineral density of the left femoral neck within the range of normal. Reviewed, Interpreted and Dictated by Rachana Patel MD Transcribed by Sherrie Perry Authenticated and [facility] [place] [place]
[2023-05-06 10:32] LABS: Free T4 (Free Thyroxine) 1.03 ng/dl (0.78-2.19)
[2023-05-06 10:46] LABS: Thyroid Stimulating Hormone 1.46 uIU/mL (0.465-4.68)
== END ==
PROVIDERS: Nurse Practitioner; PCP Physician Assistant; Visit Provider Physician Assistant
DX: M81.0 Age-related osteoporosis without current pathological fracture (principal); E03.9 Hypothyroidism, unspecified
CPT/HCPCS: 77080; 84439; 84443

== ENCOUNTER 2023-05-14 10:36 | Emergency (ER) | payer BC, SELFPAY ==
[2023-05-14 10:36] VITALS: BP 120/66; PULSE 83; RESP 18; TEMP 36.8; O2SAT 98; BMI 37.4
[2023-05-14 10:53] LABS: UTC Strep Screen (Rapid) Negative (Negative)
--- NOTE | 2023-05-14 11:00 | EXP.UTC ---
Discharge Plan Disposition Patient Disposition: Home, Self-Care Condition: Good Prescriptions Prescriptions: New azithromycin [Zithromax] 250 mg tablet 250 mg PO UD DOSE PK Qty: 6 0RF Rx Instructions: Take two (2) tablets today, then one (1) tablet days #2 thru #5 methylprednisolone 4 mg Tablets,Dose Pack 4 mg PO DIRECTED Qty: 21 0RF No Action epinephrine 0.3 mg/0.3 mL auto-injector 0.3 ml SQ DIRECTED PRN (Reason: Allergic Reaction) methenamine hippurate 1 gram tablet 1 g PO BID galcanezumab-gnlm 120 mg/mL pen injector 120 mg SQ QMONTH Qty: 1 5RF Fiber (psyllium husk-sugar) 3.4 gram/12 gram powder PO dexlansoprazole 60 mg capsule,biphase delayed releas 60 mg PO DAILY QNASL 80 mcg/actuation HFA aerosol inhaler 2 spray INTRANASAL DAILY Trelegy Ellipta 200-62.5-25 mcg blister with device 1 inh inhalation DAILY colestipol 1 gram tablet 1 g PO DAILY rizatriptan 10 mg tablet,disintegrating See Rx Instructions PO .COMPLEX Qty: 10 6RF Rx Instructions: 1 tab at onset of headache PRN; if no relief, repeat 1 tab after 2 hrs; max = 2 tabs/24 hr 4tab/week gabapentin 100 mg capsule 100 mg PO BID PRN (Reason: pain) Qty: 60 0RF Rhofade 1 % cream 1 applic topical DAILY levothyroxine 100 mcg tablet 100 mcg PO DAILY ciprofloxacin-dexamethasone [Ciprodex] 0.3-0.1 % drops,suspension 2 drp otic (ear) BID 7 Days Qty: 7.5 0RF lisinopril 5 mg tablet 5 mg PO DAILY Qty: 30 2RF famotidine 20 mg tablet 20 mg PO DAILY Qty: 30 0RF montelukast 10 mg tablet See Rx Instructions .ROUTE .COMPLEX Qty: 90 3RF Rx Instructions: TAKE 1 TABLET BY MOUTH DAILY FOR ALLERGIES furosemide 40 mg tablet 40 mg PO DAILY Qty: 90 3RF estradiol 2 mg tablet 2 mg PO DAILY Qty: 30 11RF cholecalciferol (vitamin D3) 25 mcg (1,000 unit) capsule See Rx Instructions .ROUTE .COMPLEX Qty: 90 0RF Dose Instruction: TAKE 1 CAPSULE BY MOUTH EVERY DAY Rx Instructions: TAKE 1 CAPSULE BY MOUTH EVERY DAY spinosad [Natroba] 0.9 % suspension 30 ml topical Q7D Qty: 120 0RF permethrin [Elimite] 5 % cream 1 applic topical Q14D Qty: 60 0RF Rx Instructions: apply second treatment 14 days after first treatment if live lice remain triamcinolone acetonide 0.1 % cream See Rx Instructions .ROUTE .COMPLEX Qty: 30 0RF Dose Instruction: APPLY TO AFFECTED AREA TOPICALLY FOUR TIMES A DAY FOR REDNESS, ITCHING Rx Instructions: APPLY TO AFFECTED AREA TOPICALLY FOUR TIMES A DAY FOR REDNESS, ITCHING ergocalciferol (vitamin D2) [Vitamin D2] 1,250 mcg (50,000 unit) capsule 50,000 unit .ROUTE .COMPLEX Qty: 14 0RF Rx Instructions: 50,000 units; magnesium oxide 400 mg (241.3 mg magnesium) tablet See Rx Instructions .ROUTE .COMPLEX Qty: 90 0RF Dose Instruction: TAKE 1 TABLET BY MOUTH DAILY FOR SUPPLEMENT Rx Instructions: TAKE 1 TABLET BY MOUTH DAILY FOR SUPPLEMENT albuterol sulfate [Ventolin HFA] 90 mcg/actuation HFA aerosol inhaler See Rx Instructions .ROUTE .COMPLEX Qty: 18 12RF Dose Instruction: SHAKE WELL AND INHALE 2 PUFFS EVERY SIX HOURS Rx Instructions: SHAKE WELL AND INHALE 2 PUFFS EVERY SIX HOURS ondansetron 4 mg tablet,disintegrating See Rx Instructions .ROUTE .COMPLEX Qty: 30 3RF Rx Instructions: TAKE ONE TABLET BY MOUTH EVERY 8 HOURS NEEDED FOR NAUSEA & VOMITING *MAY CAUSE DROWSINESS* azelastine 137 MCG/0.137 ML bottle 2 spray INTRANASAL BID Rx Instructions: administer into each nostril fluticasone propionate 16 GM spray,suspension 1 spray INTRANASAL DAILY (DME) OneTouch Ultra Test Strip See Rx Instructions .ROUTE .COMPLEX Rx Instructions: USE TO CHECK BLOOD SUGAR DIRECTED (DME) blood-glucose meter [Blood Glucose Monitoring] Kit See Rx Instructions .ROUTE .MEDSUPPLY Rx Ins
[2023-05-14 11:23] VITALS: BP 120/66; PULSE 83; RESP 18; TEMP 36.8; O2SAT 98
== END 2023-05-14 11:24 | disposition home or self-care (01) ==
PROVIDERS: Emergency Provider Nurse Practitioner Family; PCP Physician Assistant
DX: J02.9 Acute pharyngitis, unspecified (principal); E66.01 Morbid (severe) obesity due to excess calories; G47.33 Obstructive sleep apnea (adult) (pediatric); K76.0 Fatty (change of) liver, not elsewhere classified; I50.32 Chronic diastolic (congestive) heart failure; K21.9 Gastro-esophageal reflux disease without esophagitis; Z98.84 Bariatric surgery status; Z87.891 Personal history of nicotine dependence
CPT/HCPCS: 87880; 99212; 99214; G0463

== ENCOUNTER → 2023-05-14 11:50 | Outpatient (CLI) | payer BC, SELFPAY | PROVIDERS: PCP Physician Assistant; Visit Provider Nurse Practitioner | DX: R00.2 Palpitations (principal) | CPT/HCPCS: 93270 ==